=== PATIENT | female | born 1950 | race Caucasian/White ===

== ENCOUNTER 2017-04-28 22:41 | Emergency (ER) | payer MEDICARE ==
[2017-04-28 23:11] LABS: #Basophils 0.1 thou/uL (0.0-0.2); #Lymphocytes 1.9 thou/uL (1.20-3.40); #Monocytes 0.7 thou/uL (0.11-0.59); #Neutrophils 4.7 thou/uL (1.40-6.50); %Basophils 0.8 % (0.0-1.0); %Eosinophils 0.4 % (0.0-10.0); %Lymphocytes 25.4 % (21.0-51.0); %Monocytes 8.9 % (0.0-10.0); Hematocrit 41.9 % (36.0-47.0); White Blood Cell (WBC) Count 7.3 thou/uL (4.8-10.8)
[2017-04-28 23:33] LABS: ALT (SGPT) Less than 7 U/L (8-55); AST (SGOT) 12 U/L (5-34); Alkaline Phosphatase 81 U/L (40-150); Anion Gap 15 mmol/L (10-20); BUN (Urea Nitrogen) 7 mg/dL (9.8-20.1); Bilirubin, Total 0.5 mg/dL (0.2-1.2); Calc. Creatinine Clearance 0 mL/min (70-130); Calcium 9.4 mg/dL (7.8-10.44); Carbon Dioxide 23 mmol/L (23-31); Chloride 95 mmol/L (98-107); Estimated GFR-MDRD 81; Protein, Total 7.1 g/dL (6.0-8.3)
--- NOTE | 2017-04-28 23:41 | RAD ---
PORTABLE CHEST ONE VIEW: Date: 04-28-17 Time: 10:37 p.m. History: Shortness of breath. FINDINGS: Comparison is made with 01-28-17. The heart size is normal. The aorta is tortuous. The lungs are expanded without focal areas of conso lidation, pneumothorax, or pleural effusions. A stable lung nodule is noted in the right midlung. IMPRESSION: 1. No radiographic evidence of acute cardiopulmonary process. 2. Stable nodule in the right midlung. CT scan on a non-emergent basis would be helpful for better c haracterization. Code LN. POS: [facility]
[2017-04-28] MEDS ORDERED: Acetaminophen 500 MG TAB ONE (23:42)
--- NOTE | 2017-04-28 23:57 | CT ---
CT BRAIN WITHOUT CONTRAST: History: Headache. FINDINGS: Comparison made with exam of 01-28-17. Changes of chronic small vessel ischemic disease. Old left parietooccipital infarction and old lacun ar and basilar infarctions again seen. The ventricular size is stable and the basilar cisterns paten t. No evidence of acute infarct, hemorrhage, midline shift, or abnormal extraaxial fluid collections ar e seen. The bony calvarium is intact. The visualized paranasal sinuses and mastoid air cells are wel l aerated. IMPRESSION: No CT evidence of acute intracranial process. POS: [facility]
[2017-04-29 00:02] LABS: Troponin I Less than 0.010 ng/mL (< 0.028)
[2017-04-29] MEDS ORDERED: Loperamide HCl 2 MG CAP ONE (00:26)
== END 2017-04-29 02:03 | disposition home or self-care (01) ==
LOC: ERS 22:41
DX: I10 Essential (primary) hypertension (principal); R19.7 Diarrhea, unspecified; M54.6 Pain in thoracic spine; E78.5 Hyperlipidemia, unspecified; F31.9 Bipolar disorder, unspecified; F17.210 Nicotine dependence, cigarettes, uncomplicated; Z79.891 Long term (current) use of opiate analgesic; Z79.899 Other long term (current) drug therapy
CPT/HCPCS: 36415; 70450; 71010; 80053; 82553; 83735; 84484; 85025; 85379; 93005

== ENCOUNTER 2017-06-09 19:38 | Observation (INO) | payer MEDICARE ==
--- NOTE | 2017-06-09 20:26 | RAD ---
CHEST ONE VIEW HISTORY: Cough. COMPARISON: Chest one view 04/28/2017. FINDINGS: Nodule in the right lateral mid lung is similar in appearance. Lungs are hyperinflated. Cardiac venkatesh houette and mediastinal contours are within normal limits. IMPRESSION: 1. No acute intrathoracic abnormality. 2. Obstructive pulmonary disease. 3. Similar appearance of a right mid lung nodule. Non-emergent follow-up CT is recommended as was re commended on the prior examination. CODE: LN POS: [facility]
[2017-06-09 20:35] LABS: #Basophils 0.1 thou/uL (0.0-0.2); #Eosinphils 0.1 thou/uL (0.0-0.7); #Lymphocytes 2.5 thou/uL (1.20-3.40); #Monocytes 0.6 thou/uL (0.11-0.59); #Neutrophils 3.9 thou/uL (1.40-6.50); %Basophils 1.2 % (0.0-1.0); %Eosinophils 1.4 % (0.0-10.0); %Lymphocytes 34.6 % (21.0-51.0); %Monocytes 8.6 % (0.0-10.0); Hematocrit 36.5 % (36.0-47.0); Mean Platelet Volume 6.1 fL (7.4-10.4); White Blood Cell (WBC) Count 7.2 thou/uL (4.8-10.8)
[2017-06-09 20:59] LABS: ALT (SGPT) 43 U/L (8-55); AST (SGOT) 38 U/L (5-34); Alkaline Phosphatase 89 U/L (40-150); Anion Gap 14 mmol/L (10-20); BUN (Urea Nitrogen) 17 mg/dL (9.8-20.1); Bilirubin, Total Less than 0.2 mg/dL (0.2-1.2); Calc. Creatinine Clearance 0 mL/min (70-130); Calcium 9.1 mg/dL (7.8-10.44); Carbon Dioxide 23 mmol/L (23-31); Chloride 106 mmol/L (98-107); Estimated GFR-MDRD 71; Globulin 3.1 g/dL (2.4-3.5)
[2017-06-09 21:02] LABS: Troponin I 0.011 ng/mL (< 0.028)
[2017-06-09] MEDS ORDERED: Enoxaparin Sodium 100 MG/ML SYRINGE ONE (21:49)
[2017-06-09] MEDS ORDERED: Acetaminophen 500 MG TAB ONE (22:43)
[2017-06-09] MEDS ORDERED: HYDROcodone/Acetaminophen 5/325 mg Tablet ONE (22:46)
[2017-06-09] MEDS ORDERED: Ondansetron HCl/PF 4 MG/2 ML Vial IVP PRN (23:46)
[2017-06-09] MEDS ORDERED: Ondansetron ODT 4 MG TAB SL PRN (23:46)
[2017-06-09 23:50] LABS: Troponin I 0.025 ng/mL (< 0.028)
--- NOTE | 2017-06-09 23:54 | PDOC.EVN ---
Event Note - Event Note Event Note: [id number] h&p dICTATED 1. Chest pain 2. Acute bronchitis 3. HTN plan: see orders
[2017-06-10] MEDS ORDERED: Acetaminophen 325 MG TAB PO PRN (00:31)
[2017-06-10] MEDS ORDERED: Divalproex Sodium DR 500 MG TAB PO SCH ×2 (00:45→21:00)
[2017-06-10] MEDS ORDERED: traZODone HCl 50 MG TAB PO SCH ×3 (00:45→21:00)
[2017-06-10] MEDS: Sodium Chloride 0.9% 1,000 ML IV SCH ×2 (00:48→15:23)
[2017-06-10 03:13] LABS: Troponin I 0.013 ng/mL (< 0.028)
[2017-06-10] MEDS: Nitroglycerin 2% Ointment 1 INCH/1 GM Packet TOP SCH ×2 (05:20→15:23)
--- NOTE | 2017-06-10 05:52 | HP ---
DATE OF ADMISSION: 06/09/2017 CHIEF COMPLAINT: Chest pain. HISTORY OF PRESENT ILLNESS: Patient is a 66-year-old female with past medical history of hypertension, hyperlipidemia, bipolar disorder, now came to the ER complaining of cough and chest congestion, symptoms started approximately 1 week back, cough, positive sputum production, as well as chest congestion, complains of some sore throat and rhinorrhea also. Symptoms persisted, for the past 2 days she was having chest pain. Chest pain is substernal, pressure kind of pain, moderate in intensity, associated with some dyspnea. Denies any sweating, denies any nausea, denies any vomiting, denies any palpitations, chest pain is intermittent. No aggravating factors, no relieving factors, so she came to the ER. PAST MEDICAL HISTORY: As per HPI. PAST SURGICAL HISTORY: Hip replacement. SOCIAL HISTORY: Denies smoking, denies alcohol, denies any drugs. FAMILY HISTORY: Denies any heart problems. MEDICATIONS: Reviewed. ALLERGIES: TRAMADOL. REVIEW OF SYSTEMS: Constitutional: Denies any fever, denies any chills. Eyes : Denies any vision problems. Ears: Denies any hearing loss. Neck: Denies any neck pain. Cardiovascular: Positive for chest pain. Respiratory System: Positive for cough and sputum production. Gastrointestinal: Denies nausea, vomiting. Integumentary: Denies any rash. Musculoskeletal: Denies any joint deformities. All other review of systems are reviewed and are negative. PHYSICAL EXAMINATION: CONSTITUTIONAL/VITAL SIGNS: At the time of H&P performed, blood pressure is 130 /70, afebrile, rr 16 GENERAL: The patient appears comfortable. HEENT: Pupils are equal, round, and reactive. Anterior nares patent. Nose normal. Ears normal. Teeth intact. Tongue is moist. NECK: Supple. No JVD. CARDIOVASCULAR SYSTEM: S1, S2 present. Regular rate and rhythm. No murmurs, no rubs, no gallops. RESPIRATORY SYSTEM: No wheezing, no rhonchi. Breath sounds bilaterally. GASTROINTESTINAL: Soft, nontender, no guarding, no organomegaly, no masses felt. MUSCULOSKELETAL: No edema. INTEGUMENT: No rashes seen. PSYCHIATRIC: Mood appropriate at this time. LABORATORY DATA: At the time of H&P performed, sodium 139, potassium 3.8, chloride 106, CO2 is 23, BUN of 17, creatinine 0.81, calcium 9.1. White count 7.2, hemoglobin 11.9, platelet count 344. EKG: No acute ST changes. EKG positive for T-wave inversion in lead II, III and V4, V5 also. ASSESSMENT AND PLAN: Patient is a 66-year-old female: 1. Chest pain, need to rule out cardiac etiology. Plan to check cardiac enzymes. Plan to consult Cardiology to evaluate patient. 2. Hypertension. Monitor blood pressures continue home blood pressure medications. 3. History of hyperlipidemia: continue home meds 4. Bronchitis. Place patient on IV azithromycin. Plan to monitor the patient closely. Case was discussed in detail with the patient. [facility]
[2017-06-10] MEDS ORDERED: HYDROcodone/Acetaminophen 10/325 mg Tablet PO PRN (07:24)
[2017-06-10] MEDS ORDERED: hydrALAZINE 20 MG/ML VIAL SLOW IVP PRN (07:31)
--- NOTE | 2017-06-10 07:38 | PDOC.PN ---
- Subjective Encounter Start Date: 06/10/17 Encounter Start Time: 14:00 Subjective: No more chest pain. Just persistent cough. Stress test negative. - Objective MAR Reviewed: Yes Vital Signs & Weight: Vital Signs (12 hours) Temp Pulse Resp BP Pulse Ox 06/10/17 07:30 79 197/90 H 06/10/17 05:05 73 18 139/65 96 06/09/17 23:35 98.8 F 66 18 195/90 H 95 Weight Weight 108 lb 14.4 oz I&O: 06/09/17 06/10/17 06/11/17 06:59 06:59 06:59 Intake Total 100 Balance 100 Result Diagrams: 06/09/17 20:26 06/09/17 20:26 Phys Exam - Physical Examination Constitutional: NAD HEENT: moist MMs Respiratory: no wheezing, no rales, no rhonchi Cardiovascular: RRR, no significant murmur Gastrointestinal: soft, positive bowel sounds Musculoskeletal: no edema Neurological: non-focal, moves all 4 limbs Psychiatric: normal affect, A&O x 3 Dx/Plan (1) Chest pain, rule out acute myocardial infarction Code(s): R07.9 - CHEST PAIN, UNSPECIFIED Status: Resolved Comment: secondary to bronchitis, noncardiac (2) Acute bronchitis Code(s): J20.9 - ACUTE BRONCHITIS, UNSPECIFIED Status: Acute Qualifiers: Bronchitis organism: unspecified organism Qualified Code(s): J20.9 - Acute bronchitis, unspecified Comment: Neg leukocytosis or infiltrate on CXR, can back off abx,switch to oral doxycycline (3) HTN (hypertension) Code(s): I10 - ESSENTIAL (PRIMARY) HYPERTENSION Status: Chronic Qualifiers: Hypertension type: essential hypertension Qualified Code(s): I10 - Essential (primary) hypertension Comment: Uncontrolled, resume home meds and give prn hydralazine (4) HLD (hyperlipidemia) Code(s): E78.5 - HYPERLIPIDEMIA, UNSPECIFIED Status: Chronic Qualifiers: Hyperlipidemia type: pure hypercholesterolemia Qualified Code(s): E78.00 - Pure hypercholesterolemia, unspecified; E78.0 - Pure hypercholesterolemia (5) Bipolar 1 disorder Code(s): F31.9 - BIPOLAR DISORDER, UNSPECIFIED Status: Chronic - Plan cont current plan of care, continue antibiotics CM neg x3, stress test negative, will d/c home * . - Discharge Day Encounter end time: 14:30
[2017-06-10] MEDS ORDERED: Carvedilol 3.125 MG TAB PO SCH (09:00)
[2017-06-10] MEDS ORDERED: Aspirin 325 MG TAB PO SCH (09:00)
[2017-06-10] MEDS ORDERED: Doxycycline 100 MG CAP PO SCH (09:00)
[2017-06-10] MEDS ORDERED: Aspirin 325 mg Enteric Coated Tablet PO SCH (09:00)
[2017-06-10] MEDS ORDERED: Amlodipine 10 MG TAB PO SCH (09:00)
[2017-06-10] MEDS ORDERED: Diphenoxylate HCl/Atropine Tablet PO SCH (09:00)
[2017-06-10 13:47] VITALS: BMI 18.6
[2017-06-10 15:30] VITALS: BP 140/65; TEMP 97.9
[2017-06-10] MEDS ORDERED: ADENOSINE 60 MG/20 ML VIAL ONE (15:52)
--- NOTE | 2017-06-10 16:20 | NM ---
MYOCARDIAL PERFUSION SCAN: Date: 06/10/17 HISTORY: Chest pain. TECHNIQUE: The patient was given 9.4 mCi of technetium sestamibi for rest imaging and 33 mCi for stress imaging. Patient was injected with Adenosine and Adenosine protocol was followed. Left ventricle imaged with SPECT imaging. CT attenuation obtained. FINDINGS: There is normal activity throughout the left ventricle on stress and rest images. There is no evidenc e of reversible ischemia. Wall motion is normal. Ejection fraction recorded at over 80%. IMPRESSION: Negative sestamibi stress test. POS: [facility]
[2017-06-10] MEDS ORDERED: Non-Formulary Item 1 EACH (Trazodone [Trazodone] 100 MG) PO SCH (21:00)
[2017-06-10] MEDS ORDERED: Atorvastatin Calcium 20 MG TAB PO SCH (21:00)
--- NOTE | 2017-06-11 06:33 | DIS ---
PRIMARY CARE PHYSICIAN: Imelda Yancey at the [facility]. DIAGNOSES ON ADMISSION: 1. Chest pain, rule out acute coronary syndrome. 2. Hypertension. 3. Bronchitis. 4. Hyperlipidemia. DIAGNOSES ON DISCHARGE: 1. Chest pain, noncardiac, resolved. 2. Acute bronchitis. 3. Hypertension. 4. Hyperlipidemia. 5. Tobacco abuse. CONSULTATIONS: None. PROCEDURE: Nuclear medicine stress test showing no evidence for ischemic cardiac disease and a faith l ejection fraction. PERTINENT LABORATORY: Cardiac markers set negative x3. Total cholesterol little elevated at 204, LD L was 113. SUMMARY OF HOSPITAL COURSE: This is a 66-year-old female with a past medical history of hypertension and hyperlipidemia who has had cough and congestion symptoms for about 1 week when she developed abo ut 2 days of chest pain, substernal, moderate in intensity with some dyspnea. It resolved in the ewdin rgency room. The patient had negative cardiac markers x3. She had negative stress test and was doin g well without chest pain on the day of discharge. DISCHARGE MANAGEMENT: Discharged home. Follow up with primary care physician in the next 1-2 weeks. ACTIVITY: As tolerated. DIET: Healthy heart, low sodium diet. The patient was recommended to stop smoking. DISCHARGE MEDICATIONS: Doxycycline 100 mg twice a day for 7 days plus she is to resume her home medi cations.
== END 2017-06-10 15:54 | disposition home or self-care (01) ==
LOC: ERS 19:38 → 2SW 22:02
PROVIDERS: ADMIT Internal Medicine; ATTEND Internal Medicine
DX: R07.2 Precordial pain (principal); J20.9 Acute bronchitis, unspecified; I10 Essential (primary) hypertension; E78.5 Hyperlipidemia, unspecified; F17.200 Nicotine dependence, unspecified, uncomplicated; F31.9 Bipolar disorder, unspecified; Z79.82 Long term (current) use of aspirin; Z79.899 Other long term (current) drug therapy; Z88.6 Allergy status to analgesic agent; Z88.5 Allergy status to narcotic agent; Z96.649 Presence of unspecified artificial hip joint
CPT/HCPCS: 71010; 78452; 80053; 80061; 82553; 84484 ×3; 85025; 87804 ×2; 93005; 93017; 96361; 96365; 96372; 99285; A9500; G0378; 36415; J0153; J1650; J1956

== ENCOUNTER 2017-06-29 16:05 | Observation (INO) | payer MEDICARE ==
[2017-06-29] MEDS ORDERED: Nitroglycerin 2% Ointment 1 INCH/1 GM Packet ONE (16:24)
[2017-06-29 17:02] LABS: #Basophils 0.1 thou/uL (0.0-0.2); #Eosinphils 0.1 thou/uL (0.0-0.7); #Lymphocytes 2.2 thou/uL (1.20-3.40); #Monocytes 0.6 thou/uL (0.11-0.59); #Neutrophils 5.2 thou/uL (1.40-6.50); %Basophils 0.7 % (0.0-1.0); %Eosinophils 1.1 % (0.0-10.0); %Lymphocytes 27.2 % (21.0-51.0); %Monocytes 7.2 % (0.0-10.0); Hematocrit 42.3 % (36.0-47.0); Mean Platelet Volume 6.9 fL (7.4-10.4); Red Blood Cell (RBC) Count 4.61 mill/uL (4.20-5.40); White Blood Cell (WBC) Count 8.2 thou/uL (4.8-10.8)
--- NOTE | 2017-06-29 17:04 | RAD ---
RADIOGRAPH CHEST 1 VIEW: Date: 06-29-17 Time: 4:45 p.m. HISTORY: 66-year-old female with acute chest pain. COMPARISON: 06-09-17 FINDINGS: The previously mentioned noncalcified nodule in the right mid-lung zone has grown, and currently erica ures approximately 15 mm, although it is difficult to precisely measure because of its spiculated mar gins. No airspace opacity, pulmonary edema, or pneumothorax. New finding of mild blunting of the left lateral costophrenic angle suggestive of a small new pleural effusion. Cardiomediastinal silhouette is normal. No pneumothorax. IMPRESSION: 1. Interval growth of right sided spiculated pulmonary nodule, highly suspicious for primary lung can cer. CT of the chest is again strongly recommended. 2. New small left pleural effusion. Code T JN POS: [facility]
[2017-06-29 17:13] LABS: ALT (SGPT) 8 U/L (8-55); AST (SGOT) 12 U/L (5-34); Alkaline Phosphatase 88 U/L (40-150); Anion Gap 12 mmol/L (10-20); BUN (Urea Nitrogen) 9 mg/dL (9.8-20.1); Bilirubin, Total 0.3 mg/dL (0.2-1.2); CK (CPK) 50 U/L (29-168); Calc. Creatinine Clearance 0 mL/min (70-130); Carbon Dioxide 27 mmol/L (23-31); Chloride 102 mmol/L (98-107); Estimated GFR-MDRD 80; Globulin 3.2 g/dL (2.4-3.5); Protein, Total 7.3 g/dL (6.0-8.3)
[2017-06-29 17:17] LABS: Troponin I Less than 0.010 ng/mL (< 0.028)
[2017-06-29] MEDS ORDERED: Acetaminophen 325 MG TAB PO PRN (18:05)
[2017-06-29] MEDS ORDERED: Nitroglycerin 0.4 MG TAB (25 Tab Bottle) PO PRN (18:05)
[2017-06-29] MEDS ORDERED: Guaifenesin DM 100-10/5 ML UDCUP PO PRN (18:05)
[2017-06-29] MEDS: Sodium Chloride 0.9% 1,000 ML IV SCH (20:09)
[2017-06-29] MEDS: Diphenoxylate HCl/Atropine Tablet PO SCH (20:10)
[2017-06-29] MEDS: Carvedilol 3.125 MG TAB PO SCH (20:10)
[2017-06-29] MEDS: Famotidine 20 MG TAB PO SCH (20:10)
[2017-06-29] MEDS: HYDROcodone/Acetaminophen 10/325 mg Tablet PO PRN (20:12)
[2017-06-29] MEDS ORDERED: traZODone HCl 50 MG TAB PO SCH (21:00)
[2017-06-29] MEDS ORDERED: Atorvastatin Calcium 20 MG TAB PO SCH (21:00)
--- NOTE | 2017-06-29 21:31 | CT ---
Code Lung POS: [facility]
[2017-06-29 22:22] LABS: Troponin I Less than 0.010 ng/mL (< 0.028)
--- NOTE | 2017-06-29 23:02 | HP ---
REASON FOR ADMISSION: Chest pain, dizziness. HISTORY OF PRESENTING ILLNESS: The patient gives history of feeling dizzy and not feeling good the day today. She developed left-sided chest pain, which was 2-3/10 in intensity with some radiati on to the back. She also developed headache off and on. All of this concerned and she came to the e mergency room. She was suffering from bronchitis with congestion from last 3 weeks and got over it t hree days back. She was on Augmentin and steroids via primary care physician. No current complaints of cough or expectoration. No fever. 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 twice daily, [place] p.r.n. for pain, Depakote 1000 mg p.o. daily, trazodone 100 mg p.o. at bedti wi, Celexa 20 mg p.o. daily, aspirin 81 mg p.o. daily. ALLERGIES: TRAMADOL and she is LACTOSE-INTOLERANT. PERSONAL HISTORY: Smokes half pack a day and has been doing so for the last 20-30 years. She has tr ied to quit 3 times. Does not abuse alcohol or drugs. FAMILY HISTORY: Mother of old age and had dementia in her 80s. Father of emphysema and it s complications at the age of 62 years. REVIEW OF SYSTEMS: The following complete review of systems was negative, unless otherwise mentioned in the HPI or below: Constitutional: Weight loss or gain, ability to conduct usual activities. Skin: Rash, itching. Eyes: Double vision, pain. ENT/Mouth: Nose bleeding, neck stiffness, pain, tenderness. Cardiovascular: Palpitations, dyspnea on exertion, orthopnea. Respiratory: Shortness of breath, wheezing, cough, hemoptysis, fever or night sweats. Gastrointestinal: Poor appetite, abdominal pain, heartburn, nausea, vomiting, constipation, or diarr hea. Genitourinary: Urgency, frequency, dysuria, nocturia. Musculoskeletal: Pain, swelling. Neurologic/Psychiatric: Anxiety, depression. Allergy/Immunologic: Skin rash, bleeding tendency. PHYSICAL EXAMINATION: GENERAL: The patient is a 66-year-old female, who is currently not in any acute distress. VITAL SIGNS: Blood pressure 136/74, pulse 70 per minute, respiratory rate 18 per minute, temperature 98 degrees Fahrenheit, saturating 98% on room air. NECK: Supple, no elevated JVD. HEENT: Eyes: Extraocular muscles intact. Pupils are reacting to light. Oral cavity: Mucous membr anes are moist. No exudates or congestion. CARDIOVASCULAR SYSTEM: S1, S2 heard. Regular rhythm. RESPIRATORY SYSTEM: Air entry 1+ bilateral. Scattered rhonchi plus no rales. ABDOMEN: Soft, bowel sounds heard. No tenderness, rigidity or guarding. EXTREMITIES: No peripheral edema or calf tenderness. VASCULAR SYSTEM: Peripheral pulses 1+ bilateral. No ischemic ulcerations or gangrene. CENTRAL NERVOUS SYSTEM: No gross focal deficits seen. The patient is alert, awake, oriented x3. PSYCHIATRIC SYSTEM: The patient's mood is euthymic. No hallucinations or delusions. LABORATORY AND X-RAY FINDINGS: Chest x-ray done shows right-sided spiculated pulmonary nodule highly suspicious for primary lung cancer, new small left pleural effusion. H&H are 13 and 42, platelet co unt 358 with 63% neutrophils, white count of 8. Electrolytes are stable. BUN 9, creatinine 0.7, glu cose 97. Liver enzymes are within normal limits. Cardiac enzymes are negative. Albumin is 4.1. A CT chest done by my review shows a 13 mm spiculated mass in the right lung. Official results are pen ding. EKG done shows normal sinus rhythm at 71 beats per minute with poor R-wave progression. CLINICAL IMPRESSION AND PLAN: The patient will be under observation on telemetry for chest pain, rul e out acute coronary syndrome. Likely this is noncardiac chest pain. We will obtain two more sets o f cardiac enzymes. We will continue her Norvasc, Coreg, Depakote and trazodone as before. The patie nt will be on DuoNebs q.6 hourly and Pepcid 20 mg twice daily. I will try to set her up with Dr. Evelina cormier, who is music rehabilitation therapist for Pulmonology in his office for the right spiculated lung mass for outpatient bro nchoscopy or CT guided biopsy. Otherwise, she will be closely monitored on telemetry. The patient a lso appears clinically dry and will be on normal saline at 70 mL per hour.
[2017-06-30] MEDS: HYDROcodone/Acetaminophen 10/325 mg Tablet PO PRN ×3 (00:20→09:45)
[2017-06-30 00:31] VITALS: BMI 19.2
[2017-06-30] MEDS: Sodium Chloride 0.9% 1,000 ML IV SCH (04:03)
[2017-06-30 05:04] LABS: #Basophils 0.1 thou/uL (0.0-0.2); #Eosinphils 0.1 thou/uL (0.0-0.7); #Lymphocytes 2.5 thou/uL (1.20-3.40); #Monocytes 0.4 thou/uL (0.11-0.59); #Neutrophils 3.5 thou/uL (1.40-6.50); %Basophils 0.9 % (0.0-1.0); %Eosinophils 1.2 % (0.0-10.0); %Lymphocytes 37.7 % (21.0-51.0); %Monocytes 6.7 % (0.0-10.0); Hematocrit 36.7 % (36.0-47.0); Mean Platelet Volume 6.8 fL (7.4-10.4); White Blood Cell (WBC) Count 6.5 thou/uL (4.8-10.8)
[2017-06-30 05:31] LABS: Anion Gap 12 mmol/L (10-20); BUN (Urea Nitrogen) 10 mg/dL (9.8-20.1); Calc. Creatinine Clearance 64 mL/min (70-130); Carbon Dioxide 24 mmol/L (23-31); Chloride 104 mmol/L (98-107); Estimated GFR-MDRD 85
[2017-06-30] MEDS: Famotidine 20 MG TAB PO SCH (08:14)
[2017-06-30 08:15] VITALS: BP 175/75; TEMP 97.7
[2017-06-30] MEDS: Carvedilol 3.125 MG TAB PO SCH (08:15)
[2017-06-30] MEDS: Diphenoxylate HCl/Atropine Tablet PO SCH (08:15)
[2017-06-30] MEDS ORDERED: Enoxaparin Sodium 30 MG/0.3 ML SYRINGE SC SCH (09:00)
[2017-06-30] MEDS ORDERED: Amlodipine 10 MG TAB PO SCH (09:00)
--- NOTE | 2017-06-30 11:50 | PDOC.PN ---
- Subjective Encounter Start Date: 06/30/17 Encounter Start Time: 08:15 Subjective: no further dizziness or chest pain -: feels better, no cough -: is amb in room - Objective Resuscitation Status: Resuscitation Status FULL:Full Resuscitation MAR Reviewed: Yes Vital Signs & Weight: Vital Signs (12 hours) Temp Pulse Resp BP BP Pulse Ox 06/30/17 08:36 97 06/30/17 08:34 59 L 16 97 06/30/17 08:15 57 L 175/75 H 06/30/17 07:22 97.7 F 57 L 16 175/75 H 97 06/30/17 07:05 97.9 F 60 16 06/30/17 03:58 97.9 F 60 16 173/78 H 100 06/30/17 01:12 81 12 93 L Weight Weight 111 lb 14.4 oz I&O: 06/29/17 06/30/17 07/01/17 06:59 06:59 06:59 Intake Total 1254 967 Balance 1254 967 Result Diagrams: 06/30/17 04:08 06/30/17 04:08 Phys Exam - Physical Examination HEENT: PERRLA, moist MMs Neck: no JVD, supple Respiratory: no wheezing, no rales Cardiovascular: RRR, no significant murmur Gastrointestinal: soft, non-tender, positive bowel sounds Musculoskeletal: no edema, pulses present Neurological: non-focal, moves all 4 limbs Psychiatric: A&O x 3 Dx/Plan (1) Chest pain Code(s): R07.9 - CHEST PAIN, UNSPECIFIED Status: Resolved (2) Pulmonary nodule, right Code(s): R91.1 - SOLITARY PULMONARY NODULE Status: Acute (3) Carotid artery disease Code(s): I77.9 - DISORDER OF ARTERIES AND ARTERIOLES, UNSPECIFIED Status: Chronic Qualifiers: Laterality: bilateral Qualified Code(s): I77.9 - Disorder of arteries and arterioles, unspecified (4) COPD (chronic obstructive pulmonary disease) Status: Chronic Qualifiers: COPD type: chronic bronchitis Chronic bronchitis type: unspecified Qualified Code(s): J42 - Unspecified chronic bronchitis (5) HLD (hyperlipidemia) Code(s): E78.5 - HYPERLIPIDEMIA, UNSPECIFIED Status: Chronic Qualifiers: Hyperlipidemia type: pure hypercholesterolemia Qualified Code(s): E78.00 - Pure hypercholesterolemia, unspecified; E78.0 - Pure hypercholesterolemia (6) HTN (hypertension) Code(s): I10 - ESSENTIAL (PRIMARY) HYPERTENSION Status: Chronic Qualifiers: Hypertension type: essential hypertension Qualified Code(s): I10 - Essential (primary) hypertension (7) Vertebral artery occlusion Code(s): I65.09 - OCCLUSION AND STENOSIS OF UNSPECIFIED VERTEBRAL ARTERY Status: Chronic - Plan hemostable -: tropx3 -ve -: to f/u with for either bronch with bx or ct guided bx of lung nodul -: dc pt home * .
--- NOTE | 2017-06-30 14:27 | DIS ---
DATE OF ADMISSION: 06/29/2017 DATE OF DISCHARGE: 06/30/2017 DISCHARGE DISPOSITION: To home. PRIMARY DISCHARGE DIAGNOSES: 1. Chest pain which is noncardiac. 2. Right lung pulmonary nodule for outpatient workup. SECONDARY DISCHARGE DIAGNOSES: History of chronic carotid artery stenosis, COPD, dyslipidemia, hyper tension. PROCEDURES DONE DURING HOSPITALIZATION: CT chest without contrast showed 1.8 cm spiculated right low er lobe pulmonary nodule suspicious for lung cancer with signs of emphysema, H&H 11 and 36, platelet count 294. Troponin x3 negative. DISCHARGE MEDICATIONS: Patient to continue Norvasc 10 mg p.o. daily, aspirin 325 mg p.o. daily, Lipi tor 20 mg p.o. at bedtime, Coreg 3.125 mg p.o. twice daily, Depakote extended release 1000 mg p.o. at bedtime for bipolar disorder, [place] p.r.n. for pain, trazodone 100 mg p.o. at bedtime. ALLERGIES: TRAMADOL. DISCHARGE PLAN: The patient will follow up with Dr. Hernandez in his office. Will call her for appointme nt for the lung nodule. She also needs follow up with primary care physician in 1 week. BRIEF COURSE DURING HOSPITALIZATION: The patient initially came to ER with complaints of chest pain and dizziness. She was mildly dehydrated and was gently hydrated. Troponin x3 was negative. She williamson s had a recent stress test here done which was negative as well. The patient had a pulmonary nodule on plain x-ray and CT chest without contrast was obtained which showed spiculated 1.8 cm pulmonary no dule. I have discussed the findings with Dr. Hernandez. His office will call her for further workup for the same. She was gently hydrated and has done well. Her dizziness and chest pain have resolved. Vangie khan see a face to face documentation on [employer] for the day of discharge.
== END 2017-06-30 11:39 | disposition home or self-care (01) ==
LOC: ERS 16:05 → 2SW 17:19
PROVIDERS: ADMIT Internal Medicine; ATTEND Internal Medicine
DX: R07.89 Other chest pain (principal); R91.1 Solitary pulmonary nodule; I65.21 Occlusion and stenosis of right carotid artery; I65.02 Occlusion and stenosis of left vertebral artery; I10 Essential (primary) hypertension; J44.9 Chronic obstructive pulmonary disease, unspecified; E78.5 Hyperlipidemia, unspecified; F31.9 Bipolar disorder, unspecified; E73.9 Lactose intolerance, unspecified; K52.9 Noninfective gastroenteritis and colitis, unspecified; F17.210 Nicotine dependence, cigarettes, uncomplicated; F32.9 Major depressive disorder, single episode, unspecified; Z86.73 Personal history of transient ischemic attack (TIA), and cerebral infarction without residual deficits; Z79.899 Other long term (current) drug therapy; Z88.5 Allergy status to narcotic agent; Z90.710 Acquired absence of both cervix and uterus; Z98.890 Other specified postprocedural states
CPT/HCPCS: 71010; 71250; 80048; 80053; 82550; 82553; 84484 ×2; 85025 ×2; 93005; 93306; 94640 ×2; 94760; 96361 ×2; 96372; 99285; G0378; 36415; A4216; J1650; J7620

== ENCOUNTER 2017-07-08 17:27 | Emergency (ER) | payer MEDICARE ==
[2017-07-08 18:26] LABS: Bilirubin Negative (Negative); Blood, Urine Negative (Negative); Glucose, Urine (Dipstick) 100 mg/dL (Negative); Ketone, Urine Trace mg/dL (Negative); Nitrite Negative (Negative); Protein, Urine (Dipstick) Trace mg/dL (Neg-Trace)
== END 2017-07-08 19:46 | disposition home or self-care (01) ==
LOC: ERS 17:27
DX: J10.1 Influenza due to other identified influenza virus with other respiratory manifestations (principal); E78.5 Hyperlipidemia, unspecified; I10 Essential (primary) hypertension; F31.9 Bipolar disorder, unspecified; F17.210 Nicotine dependence, cigarettes, uncomplicated; Z71.6 Tobacco abuse counseling; Z79.82 Long term (current) use of aspirin; Z79.899 Other long term (current) drug therapy
CPT/HCPCS: 81003; 99406

== ENCOUNTER 2017-07-16 05:51 | Inpatient (IN) | payer MEDICARE ==
[2017-07-16] MEDS ORDERED: Dexamethasone 10 MG/ML VIAL ONE (06:24)
[2017-07-16] MEDS ORDERED: Magnesium Sulfate 2 GM/NS 0.9% 50 ML BAG ONE (06:24)
[2017-07-16] MEDS ORDERED: Albuterol Sulfate 2.5 mg/0.5 ml Neb ONE (06:26)
[2017-07-16 06:41] LABS: Base Excess (BEa) 0.1 mEq/L (0 (+/-) 2.5); CO2 Tension 36.1 mmHg (35.0-45.0); Calcium, Ionized 1.1 mmol/L (1.12-1.30); Hemoglobin (Hb) 11.1 g/dL (12.0-16.0); O2 Tension (PaO2) 54.1 mmHg (80.0-100.0); pH, Arterial 7.44 (7.35-7.45)
[2017-07-16 06:42] LABS: ALV-art Gradient 52.395 (0-20); Analyzer IN Cardio ER; Puncture Site L.R.
[2017-07-16 06:52] LABS: Hemoglobin 11.6 g/dL (12.0-16.0); Mean Corpuscular HGB CONC 31.7 g/dL (32.0-36.0); Mean Corpuscular Volume 91.4 fl (81.0-99.0); Mean Platelet Volume 6.9 fL (7.4-10.4); Platelet Count 251 thou/uL (130-400); RBC Distribution Width 13.3 % (11.5-14.5); Red Blood Cell (RBC) Count 4.01 mill/uL (4.20-5.40); White Blood Cell (WBC) Count 15.9 thou/uL (4.8-10.8)
[2017-07-16 07:01] LABS: ALT (SGPT) 9 U/L (8-55); AST (SGOT) 10 U/L (5-34); Albumin 3.4 g/dL (3.4-4.8); Alkaline Phosphatase 67 U/L (40-150); Anion Gap 15 mmol/L (10-20); BUN (Urea Nitrogen) 12 mg/dL (9.8-20.1); Bilirubin, Total 0.7 mg/dL (0.2-1.2); Calc. Creatinine Clearance 0 mL/min (70-130); Calcium 8.7 mg/dL (7.8-10.44); Carbon Dioxide 23 mmol/L (23-31); Chloride 100 mmol/L (98-107); Estimated GFR-MDRD 65; Globulin 2.9 g/dL (2.4-3.5); Glucose 155 mg/dL (80-115); Protein, Total 6.3 g/dL (6.0-8.3); Sodium 134 mmol/L (136-145)
[2017-07-16 07:14] LABS: Band 26 % (5-11); Hypochromia SLIGHT = 6-15 cells (100X) (0-5/hpf); Lymphocytes 6 % (21-51); MDiff Complete? YES; Monocytes 4 % (0-10); Neutrophil 63 % (42-75); PLT Morphology Comment Appears Adequate; Polychromasia SLIGHT = 2-3 cells (100X) (0-2/hpf); Reactive Lymphocytes 1 % (0-10)
[2017-07-16] MEDS ORDERED: Oseltamivir 75 MG CAP PO ONE (07:45)
--- NOTE | 2017-07-16 08:16 | RAD ---
PORTABLE CHEST ONE VIEW: Date: 07-16-17 Time: 6:54 a.m. History: Cough, fever. FINDINGS: Comparison is made with exam of 06-29-17. The heart size is normal. The lungs are well expanded with stable spiculated nodule in the right lowe r lobe. Patchy airspace disease is seen in the left lung base, interstitial markings are also noted i n the infrahilar regions bilaterally. No pneumothoraces are seen. A small left effusion cannot be exc luded. IMPRESSION: 1. Findings are suspicious for pneumonia. 2. Right lung nodule is suspicious for malignancy until proven otherwise. POS: [facility]
[2017-07-16 11:55] LABS: Lactic Acid 3.6 mmol/L (0.5-2.2)
[2017-07-16] MEDS ORDERED: Milk Of Magnesia 30 ML UDCUP PO PRN (12:26)
[2017-07-16] MEDS ORDERED: Artificial Tears 18 DROP/0.9 ML EA EYE PRN (12:26)
[2017-07-16] MEDS ORDERED: Acetaminophen 325 MG TAB PO PRN (12:26)
[2017-07-16] MEDS ORDERED: Sodium Chloride 0.65% Nasal 44 ML BOT EA NARE PRN (12:26)
[2017-07-16] MEDS ORDERED: Eucerin (Mineral Oil/Petrolatum,White) 30 gm Jar TOP PRN (12:26)
[2017-07-16] MEDS ORDERED: Ondansetron ODT 4 MG TAB PO PRN (12:26)
[2017-07-16] MEDS ORDERED: hydrALAZINE 20 MG/ML VIAL SLOW IVP PRN (12:26)
[2017-07-16] MEDS ORDERED: Ondansetron HCl/PF 4 MG/2 ML Vial IVP PRN (12:26)
[2017-07-16] MEDS ORDERED: Loratadine 10 MG TAB PO PRN (12:26)
[2017-07-16] MEDS ORDERED: Mag-Al 1200 mg/1200 mg/30 ML UDCUP PO PRN (12:26)
[2017-07-16] MEDS ORDERED: Senokot 8.6 MG TAB PO PRN (12:26)
[2017-07-16] MEDS ORDERED: Chloraseptic Spray 180 ml Bottle PO PRN (12:26)
[2017-07-16] MEDS ORDERED: cefTRIAXone\\ROCEPHIN 1 GM in Sodium Chloride 0.9% 100 ML IVPB SCH (12:30)
[2017-07-16] MEDS ORDERED: Loperamide HCl 2 MG CAP ONE (13:00)
[2017-07-16] MEDS ORDERED: Acetaminophen 325 MG TAB ONE (13:01)
[2017-07-16] MEDS ORDERED: Levofloxacin 500 mg/D5W 100 ml Premix Bag ONE (13:01)
[2017-07-16] MEDS ORDERED: Oseltamivir 75 MG CAP PO SCH ×2 (13:30→21:00)
[2017-07-16] MEDS ORDERED: HYDROcodone/Acetaminophen 5/325 mg Tablet ONE (13:32)
--- NOTE | 2017-07-16 13:51 | HP ---
PRIMARY CARE PHYSICIAN: Dr. Ollie Sandra at [facility]. REASON FOR ADMISSION: Post-influenza pneumonia, hypoxic respiratory failure, sepsis with acute organ dysfunction. HISTORY OF PRESENT ILLNESS: A 66-year-old female who reports that she had upper respiratory symptoms at end of May. At that time, she visited primary care physician who prescribed inhalers, stero ids. After that patient felt better for few days only and subsequently she had continuous upper resp iratory symptoms. Her influenza screen on 06/09/2017 was negative. The patient was not improving and she was having increasing shortness of breath, cough, and runny nos e and that is why her primary care physician ordered another influenza screen which was positive. Abhishek powell has finished 5 days of Tamiflu therapy. Even after this, patient's condition is not improving and she has fever and dyspnea. She was not abl e to take deep breaths in. She was having cough productive of scant amount of sputum without any hem optysis. She was not able to breathe at home and she was feeling more congested in her chest and carroll t is why she was brought to the emergency room again today. Today in the emergency room, patient had leukocytosis with bandemia. She was hypoxic. She had lactic acidosis. Her influenza screen today is negative. In the emergency room, patient has received so far Tamiflu, IV fluid, magnesium sulfate, Decadron 10 mg, Rocephin 1 gram, DuoNeb therapy, and albuterol inhalation. Even after that, patient's condition has not improved and that is why we decided to keep this patient in the hospital for further evaluati on and treatment. REVIEW OF SYSTEMS: The following complete review of systems was negative, unless otherwise mentioned in the HPI or below: Constitutional: Weight loss or gain, ability to conduct usual activities. Skin: Rash, itching. Eyes: Double vision, pain. ENT/Mouth: Nose bleeding, neck stiffness, pain, tenderness. Cardiovascular: Palpitations, dyspnea on exertion, orthopnea. Respiratory: Shortness of breath, wheezing, cough, hemoptysis, fever or night sweats. Gastrointestinal: Poor appetite, abdominal pain, heartburn, nausea, vomiting, constipation, or diarr hea. Genitourinary: Urgency, frequency, dysuria, nocturia. Musculoskeletal: Pain, swelling. Neurologic/Psychiatric: Anxiety, depression. Allergy/Immunologic: Skin rash, bleeding tendency. Please see my HPI for pertinent positives and negatives. All other review of systems reviewed and ne gative except as mentioned in the HPI. PAST MEDICAL HISTORY: History of cerebrovascular accident in 2015, hypertension, dyslipidemia, and m igraine headache. PAST PSYCHIATRIC HISTORY: Bipolar disorder. Anxiety and depression. The patient required inpatient psychiatric facility in 1986. PAST SURGICAL HISTORY: Hysterectomy, abdominal surgery, total left hip replacement, tonsillectomy, a nd gastric ulcer surgery. SOCIAL HISTORY: Patient is smoking about half pack per day. She drinks alcohol socially and occasio ileana. She denies any other illicit drug abuse. The patient currently lives at [facility]. FAMILY HISTORY: Positive tobacco, positive for hypertension to her mother and hard condition to gran dmother. Father also had COPD and emphysema. CURRENT HOME MEDICATIONS: Amlodipine 10 mg p.o. daily, Lipitor 10 mg p.o. at bedtime, Coreg 3.125 mg p.o. twice daily, [place] 10 one tablet q.6 hourly p.r.n., Depakote 1000 mg p.o. at bedtime, trazodone 100 mg p.o. at bedtime, Celexa 20 mg p.o. daily, aspirin 81 mg p.o. daily. ALLERGIES: LACTOSE INTOLERANCE and TRAMADOL. EMERGENCY ROOM COURSE: Patient has received sodium chloride, IV fluid 2 liter, Tamiflu, magnesium blakely lfate 1 g, Decadron 10 mg, Rocephin 1 g, DuoNeb therapy, albuterol nebulization therapy. PHYSICAL EXAMINATION: VITAL SIGNS: On arrival, blood pressure 117/52, pulse 89, respiratory rate 24, temperature 100.2, sa turation 97% on 2 liter oxygen, weight 50.3 kilograms. When oxygen was off, her saturation was dropp ing to below 88%. GENERAL: The patient is currently alert, awake, appears sick, no obvious acute distress. HEAD: Normocephalic, atraumatic. EYES: Pupils round, reactive to light. Extraocular muscle intact. ENT: Oropharynx within normal limits. Moist mucous membranes. No oral lesions. No pharyngeal eryt kimber, no exudate. NECK: Supple, no JVD, no thyromegaly, no carotid bruit, no jugular venous distention. LUNGS: Patient has scattered rales. Predominantly, patient has coarse rales at the bases. No acces jose alejandro muscles of respiration in use. CARDIAC: S1, S2 regular. No murmur, no gallop, no rub. ABDOMEN: Soft, bowel sounds present, nontender, nondistended. No organomegaly, no mass, no suprapub ic tenderness. BACK: Examination unremarkable, no CVA tenderness. EXTREMITIES: Upper extremity passive movements of all joints are normal. Lower extremities: No chelsea ma. Good peripheral pulsation. SKIN: No skin rash. HEMATOLOGICAL SYSTEM: No lymphadenopathy. NEUROLOGIC: Nonfocal examination. The patient moves all 4 limbs. Plantar bilateral flexor. PSYCHIATRIC: Normal affect. IMAGING DATA AND SIGNIFICANT LABORATORY DATA: 1. bleacher kraft pulp showing normal sinus rhythm. 2. CBC: WBC 15.9, hemoglobin 11.6, platelets 251, bandemia 26%. 3. ABG: pH 7.44, CO2 36.1, O2 54.1 saturation 89.5%. 4. BMP: Sodium 134, potassium 4.0, chloride 100, carbon dioxide 23, anion gap 15, BUN 12, creatinin e 0.87, glucose 155, calcium 8.7. 5. LFT: AST 10, ALT 9, alkaline phosphatase 67, albumin 2.9, lactic acid 2.8 and then 3.6. Influen za A and B negative. 6. Chest x-ray based on my review consistent with pneumonia, right lung nodule. ASSESSMENT AND PLAN/IMPRESSION: 1. Sepsis with acute organ dysfunction. This patient has sepsis criteria with leukocytosis with ban demia, fever and associated hypoxic respiratory failure. Source of infection is pneumonia after infl uenza. The patient also has associated lactic acidosis. We will rule out associated urinary tract i nfection, though the patient denies any clinical symptoms of urinary tract infection. 2. Acute hypoxic respiratory failure. Her oxygen saturation drops to below 88% when oxygen was not given. Most likely related with post-influenza pneumonia as well as her ongoing tobacco smoking hist ory. We will monitor her oxygen saturation while in hospital. We are hoping that with treatment of underlying pneumonia, she will not need any oxygen therapy upon discharge. 3. Pneumonia after influenza, suspicious for Staphylococcal infection and that is why we will consid er giving her Rocephin and Levaquin to cover common organisms as well as vancomycin to cover strep or ganism. DuoNeb therapy will be given every 6 hourly, so we will also give Solu-Medrol 40 mg IV q.8 h ourly and Mucinex 600 mg twice daily and we will also continue with IV fluid. We will also prescribe probiotics with IV antibiotic therapy. 4. Lactic acidosis likely related with sepsis and we will repeat lactic acid level tomorrow. 5. Leukocytosis with bandemia related with sepsis. We will repeat CBC tomorrow. 6. Anemia, normocytic normochromic. We will start folic acid, vitamin B12, and ferrous sulfate ther apy. 7. Right upper lobe pulmonary nodule suspicious for malignancy. We will consider pulmonary evaluati on before discharge. This patient is not going to follow up with the media consultant outside sales as an outpatient basis. She may need a bronchoscopy or biopsy to rule out any malignancy. 8. Hypertension. We will continue amlodipine 10 mg p.o. daily. 9. Dyslipidemia. We will continue Lipitor 20 mg p.o. at bedtime. 10. Bipolar disorder. We will continue Depakote ER 1000 mg p.o. at bedtime. 11. Anxiety and depression. We will continue trazodone 100 mg p.o. at bedtime. 12. Deep venous thrombosis prophylaxis, Lovenox 40 mg subcu daily. 13. Gastrointestinal prophylaxis, Pepcid 20 mg p.o. b.i.d. Code status: The patient is FULL CODE. Patient does not have any surrogate decision maker. Disposition and plan based on clinical course. We are expecting patient's stay in hospital more than 2 midnights. Plan of care discussed with the patient in detail.
[2017-07-16 14:44] VITALS: BMI 19.7
[2017-07-16] MEDS: Sodium Chloride 0.9% 1,000 ML IV SCH ×2 (15:32→21:04)
[2017-07-16] MEDS: Vancomycin HCl 750 MG in Sodium Chloride 0.9% 250 ML 250 ML IVPB SCH (15:33)
[2017-07-16] MEDS: Diabetic Tussin 200 MG/10 ML UDCUP PO PRN ×2 (17:44→23:00)
[2017-07-16] MEDS: HYDROcodone/Acetaminophen 5/325 mg Tablet PO PRN (17:56)
[2017-07-16 17:57] LABS: Bilirubin Negative (Negative); Blood, Urine Negative (Negative); Clarity CLEAR (Clear); Glucose, Urine (Dipstick) 500 mg/dL (Negative); Leukocyte Negative (Negative); Nitrite Negative (Negative); Protein, Urine (Dipstick) Negative (Neg-Trace); Specific Gravity, Urine 1.022 (1.002-1.036); Urobilinogen 0.2 mg/dL (0.2-1.0)
[2017-07-16 17:59] LABS: Bacteria/HPF None Seen HPF (None Seen); Hyaline Casts/LPF 0-3 HYALINE CAST LPF (0-3 Hyaline); RBC/HPF 0-3 HPF (0-3); Squamous Epithelial 0-3 HPF (0-3); WBC/HPF 0-3 HPF (0-3)
[2017-07-16] MEDS: guaiFENesin ER 600 MG TAB PO SCH (20:43)
[2017-07-16] MEDS: Famotidine 20 MG TAB PO SCH (20:44)
[2017-07-16] MEDS: Carvedilol 3.125 MG TAB PO SCH (20:44)
[2017-07-16] MEDS: Atorvastatin Calcium 20 MG TAB PO SCH (20:44)
[2017-07-16] MEDS: traZODone HCl 50 MG TAB PO SCH (20:53)
[2017-07-16] MEDS: Diphenoxylate HCl/Atropine Tablet PO PRN (20:58)
[2017-07-16] MEDS ORDERED: FLU VACC TS2017-18 (>65YR) 0.5 ML SYRINGE IM ONE (21:00)
[2017-07-17] MEDS: HYDROcodone/Acetaminophen 5/325 mg Tablet PO PRN ×5 (00:30→20:18)
[2017-07-17] MEDS: Diabetic Tussin 200 MG/10 ML UDCUP PO PRN ×2 (04:38→20:27)
[2017-07-17] MEDS: Loperamide HCl 2 MG CAP PO PRN (04:38)
[2017-07-17] MEDS: Benzonatate 100 MG CAP PO PRN (04:39)
[2017-07-17] MEDS: Vancomycin HCl 750 MG in Sodium Chloride 0.9% 250 ML 250 ML IVPB SCH (05:31)
[2017-07-17 05:57] LABS: Lactic Acid 2.4 mmol/L (0.5-2.2)
[2017-07-17] MEDS ORDERED: cefTRIAXone\\ROCEPHIN 1 GM, Syringe 0.4 ML in Sterile Water 9.6 ML SLOW IVP SCH (06:00)
[2017-07-17 06:22] LABS: ALT (SGPT) 9 U/L (8-55); AST (SGOT) 7 U/L (5-34); Albumin 3.2 g/dL (3.4-4.8); Alkaline Phosphatase 76 U/L (40-150); Anion Gap 14 mmol/L (10-20); BUN (Urea Nitrogen) 15 mg/dL (9.8-20.1); Bilirubin, Total 0.3 mg/dL (0.2-1.2); Calc. Creatinine Clearance 63 mL/min (70-130); Calcium 8.5 mg/dL (7.8-10.44); Carbon Dioxide 21 mmol/L (23-31); Chloride 103 mmol/L (98-107); Estimated GFR-MDRD 81; Globulin 2.8 g/dL (2.4-3.5); Glucose 132 mg/dL (80-115); Potassium 3.9 mmol/L (3.5-5.1); Sodium 134 mmol/L (136-145)
[2017-07-17 06:58] LABS: Band 20 % (5-11); Hemoglobin 10.6 g/dL (12.0-16.0); Lymphocytes 1 % (21-51); MDiff Complete? YES; Mean Corpuscular HGB CONC 31.6 g/dL (32.0-36.0); Mean Corpuscular Hemoglobin 29.3 pg (27.0-31.0); Mean Corpuscular Volume 92.6 fl (81.0-99.0); Mean Platelet Volume 7.5 fL (7.4-10.4); Monocytes 6 % (0-10); Neutrophil 73 % (42-75); Platelet Count 260 thou/uL (130-400); RBC Distribution Width 13.5 % (11.5-14.5); Red Blood Cell (RBC) Count 3.63 mill/uL (4.20-5.40); White Blood Cell (WBC) Count 18.5 thou/uL (4.8-10.8)
[2017-07-17] MEDS: Amlodipine 10 MG TAB PO SCH (08:27)
[2017-07-17] MEDS: Aspirin 325 mg Enteric Coated Tablet PO SCH (08:27)
[2017-07-17] MEDS: guaiFENesin ER 600 MG TAB PO SCH ×2 (08:27→20:19)
[2017-07-17] MEDS: Famotidine 20 MG TAB PO SCH ×2 (08:27→20:19)
[2017-07-17] MEDS: Saccharomyces boulardii 250 MG CAP PO SCH (08:27)
[2017-07-17] MEDS: Carvedilol 3.125 MG TAB PO SCH ×2 (08:27→20:20)
[2017-07-17] MEDS: Diphenoxylate HCl/Atropine Tablet PO PRN ×2 (08:28→20:19)
[2017-07-17] MEDS: Enoxaparin Sodium 40 MG/0.4 ML SYRINGE SC SCH (08:28)
--- NOTE | 2017-07-17 10:03 | PDOC.PN ---
- Subjective Encounter Start Date: 07/17/17 Encounter Start Time: 07:20 Patient seen and examined. No new complaints. No overnight events - Objective Resuscitation Status: Resuscitation Status FULL:Full Resuscitation MAR Reviewed: Yes Vital Signs & Weight: Vital Signs (12 hours) Temp Pulse Resp BP Pulse Ox 07/17/17 08:27 80 07/17/17 07:40 98.8 F 80 18 118/71 96 07/17/17 07:17 89 L 07/17/17 07:11 80 20 89 L 07/17/17 04:00 97.4 F L 74 20 139/70 96 07/17/17 00:41 67 16 98 Weight Weight 115 lb I&O: 07/16/17 07/17/17 07/18/17 06:59 06:59 06:59 Intake Total 1210 Output Total 400 Balance 810 Result Diagrams: 07/17/17 04:48 07/17/17 04:47 EKG Reviewed by me: Yes (nsr) Phys Exam - Physical Examination Constitutional: NAD HEENT: PERRLA, moist MMs, sclera anicteric Neck: no JVD, supple Respiratory: no wheezing, no rhonchi Cardiovascular: RRR, no significant murmur, no rub Gastrointestinal: soft, non-tender, no distention, positive bowel sounds Musculoskeletal: no edema, pulses present Neurological: non-focal, normal sensation Lymphatic: no nodes Psychiatric: normal affect, A&O x 3 Skin: no rash, normal turgor Dx/Plan (1) Acute respiratory failure with hypoxia Code(s): J96.01 - ACUTE RESPIRATORY FAILURE WITH HYPOXIA Status: Acute (2) Lactic acidosis Code(s): E87.2 - ACIDOSIS Status: Acute (3) Pneumonia Code(s): J18.9 - PNEUMONIA, UNSPECIFIED ORGANISM Status: Acute (4) Sepsis with acute organ dysfunction Code(s): A41.9 - SEPSIS, UNSPECIFIED ORGANISM; R65.20 - SEVERE SEPSIS WITHOUT SEPTIC SHOCK Status: Acute (5) Anemia, normocytic normochromic Code(s): D64.9 - ANEMIA, UNSPECIFIED Status: Chronic (6) Bipolar 1 disorder Code(s): F31.9 - BIPOLAR DISORDER, UNSPECIFIED Status: Chronic (7) COPD (chronic obstructive pulmonary disease) Status: Chronic Qualifiers: (8) HLD (hyperlipidemia) Code(s): E78.5 - HYPERLIPIDEMIA, UNSPECIFIED Status: Chronic Qualifiers: (9) HTN (hypertension) Code(s): I10 - ESSENTIAL (PRIMARY) HYPERTENSION Status: Chronic Qualifiers: (10) Pulmonary nodule, right Code(s): R91.1 - SOLITARY PULMONARY NODULE Status: Chronic - Plan cont current plan of care, continue antibiotics, respiratory therapy * dc tele * transfer to medical floor * continue iv antibiotics * follow culture * medication reviewed as below * symptomatic treatment. * pulmonary consulted * regular diet per pt request Review of Systems - Review of Systems Constitutional: weakness. negative: fever, chills, sweats, malaise, other ENT: negative: Ear Pain, Ear Discharge, Nose Pain, Nose Discharge, Nose Congestion, Mouth Pain, Mouth Swelling, Throat Pain, Throat Swelling, Other Respiratory: Cough, SOB with Excertion, Sputum. negative: Dry, Shortness of Breath, Hemoptysis, Pleuritic Pain, Wheezing Cardiovascular: negative: chest pain, palpitations, orthopnea, paroxysmal nocturnal dyspnea, edema, light headedness, other Gastrointestinal: negative: Nausea, Vomiting, Abdominal Pain, Diarrhea, Constipation, Melena, Hematochezia, Other Genitourinary: negative: Dysuria, Frequency, Incontinence, Hematuria, Retention , Other Musculoskeletal: negative: Neck Pain, Shoulder Pain, Arm Pain, Back Pain, Hand Pain, Leg Pain, Foot Pain, Other Skin: negative: Rash, Lesions, Lee, Bruising, Other - Medications/Allergies Allergies/Adverse Reactions: Allergies Allergy/AdvReac Type Severity Reaction Status Date / Time tramadol Allergy Verified 07/16/17 14:49 Medications: Current Medications Acetaminophen (Tylenol) 650 mg PO Q4H PRN PRN Reason: Headache/Fever or Pain Hydrocodone Bitart/Acetaminophen ([place] 5/325) 1 tab PO Q4H PRN PRN Reason: Pain Last Admin: 07/17/17 08:27 Dose: 1 tab Al Hydroxide/Mg Hydroxide (Maalox) 30 ml PO Q6H PRN PRN Reason: Heartburn or Indigestion Albuterol/Ipratropium (Duoneb) 3 ml NEB [id number] [facility] Last Admin: 07/17/17 07:11 Dose: 3 ml Amlodipine Besylate (Norvasc) 10 mg PO DAILY [facility] Last Admin: 07/17/17 08:27 Dose: 10 mg Artificial Tears (Tears Naturale) 0 drop EA EYE PRN PRN PRN Reason: Dry Eyes Aspirin (Ecotrin) 325 mg PO DAILY [facility] Last Admin: 07/17/17 08:27 Dose: 325 mg Atorvastatin Calcium (Lipitor) 20 mg PO HS [facility] Last Admin: 07/16/17 20:44 Dose: 20 mg Benzonatate (Tessalon) 100 mg PO Q4H PRN PRN Reason: Cough Last Admin: 07/17/17 04:39 Dose: 100 mg Carvedilol (Coreg) 3.125 mg PO BID [facility] Last Admin: 07/17/17 08:27 Dose: 3.125 mg Diphenoxylate HCl/Atropine (Lomotil) 1 tab PO Q6H PRN PRN Reason: Diarrhea/Loose Stools Last Admin: 07/17/17 08:28 Dose: 1 tab Divalproex Sodium (Depakote Er) 1,000 mg PO [facility] Last Admin: 07/16/17 20:44 Dose: 1,000 mg Enoxaparin Sodium (Lovenox) 40 mg SC 0900 [facility] Last Admin: 07/17/17 08:28 Dose: 40 mg Famotidine (Pepcid) 20 mg PO BID [facility] Last Admin: 07/17/17 08:27 Dose: 20 mg Guaifenesin (Robitussin Sf) 200 mg PO Q4H PRN PRN Reason: Cough Last Admin: 07/17/17 04:38 Dose: 200 mg Guaifenesin (Mucinex) 600 mg PO Q12HR [facility] Last Admin: 07/17/17 08:27 Dose: 600 mg Hydralazine HCl (Apresoline) 10 mg SLOW IVP Q4H PRN PRN Reason: Systolic BP > 180 Levofloxacin 500 mg/ Device 100 mls @ 100 mls/hr IVPB 1300 [facility] Last Admin: 07/16/17 13:54 Dose: Not Given Sodium Chloride (Normal Saline 0.9%) 1,000 mls @ 100 mls/hr IV .Q10H [facility] Last Admin: 07/16/17 21:04 Dose: Not Given Ceftriaxone Sodium 1 gm/ (Syringe 0.4 ml/ Sterile Water) 10 mls @ 120 mls/hr SLOW IVP 0600 [facility] Last Admin: 07/17/17 06:56 Dose: 10 mls Vancomycin HCl 750 mg/ Sodium (Chloride) 250 mls @ 250 mls/hr IVPB 0500,1700 [facility] Loperamide HCl (Imodium) 2 mg PO PRN PRN PRN Reason: Diarrhea/Loose Stools Last Admin: 07/17/17 04:38 Dose: 2 mg Loratadine (Claritin) 10 mg PO DAILYPRN PRN PRN Reason: Sinus Symptoms Magnesium Hydroxide (Milk Of Magnesium) 30 ml PO DAILYPRN PRN PRN Reason: Constipation Methylprednisolone Sodium Succinate (Solu-Medrol) 20 mg IVP Q8HR [facility] Last Admin: 07/17/17 05:31 Dose: 20 mg Mineral Oil/White Petrolatum (Eucerin Cream) 0 gm TOP BIDPRN PRN PRN Reason: Dry Skin Miscellaneous Medication (Pharmacy To Dose) 0 each IVPB ASDIR PRN PRN Reason: Pharmacy to Dose PHARMACY VANC Ondansetron HCl (Zofran Odt) 4 mg PO Q6H PRN PRN Reason: Nausea/Vomiting Ondansetron HCl (Zofran) 4 mg IVP Q6H PRN PRN Reason: Nausea/Vomiting Phenol (Chloraseptic [place] 180 Ml Bot) 0 ml PO PRN PRN PRN Reason: Sore Throat Saccharomyces Boulardii (Florastor) 250 mg PO DAILY [facility] Last Admin: 07/17/17 08:27 Dose: 250 mg Senna (Senokot) 2 tab PO HSPRN PRN PRN Reason: Constipation Sodium Chloride ([place] Nasal [place] 0.65%) 0 ml EA NARE QIDPRN PRN PRN Reason: Nasal Congestion Trazodone HCl (Desyrel) 100 mg PO [facility] Last Admin: 07/16/17 20:53 Dose: 100 mg
[2017-07-17] MEDS: Sodium Chloride 0.9% 1,000 ML IV SCH ×2 (11:25→22:55)
[2017-07-17] MEDS ORDERED: Vancomycin HCl 750 MG in Sodium Chloride 0.9% 250 ML 250 ML IVPB SCH (17:00)
[2017-07-17] MEDS: Atorvastatin Calcium 20 MG TAB PO SCH (20:19)
[2017-07-17] MEDS: traZODone HCl 50 MG TAB PO SCH (20:20)
[2017-07-17] MEDS: Cefdinir 300 MG CAP PO SCH (20:28)
[2017-07-18] MEDS: Diabetic Tussin 200 MG/10 ML UDCUP PO PRN (00:07)
[2017-07-18] MEDS: Benzonatate 100 MG CAP PO PRN ×2 (01:54→14:42)
[2017-07-18] MEDS: HYDROcodone/Acetaminophen 5/325 mg Tablet PO PRN ×3 (01:54→14:42)
[2017-07-18] MEDS: Sodium Chloride 0.9% 1,000 ML IV SCH (01:57)
--- NOTE | 2017-07-18 05:42 | CON ---
HISTORY OF PRESENT ILLNESS: Ms. Peterson is a pleasant 66-year-old female. She has known obstructive lung disease. She is not normally followed by a vice provost. She says since the middle of May, she has had intermittent shortness of breath. She has respond ed to steroids, antibiotics and inhalers for periods of time, but she keeps having waxing and waning symptoms. She has been treated for flu. She presented with increasing shortness of breath and chest congestion and subsequently was admitted. She denies fever and says she is finally feeling better. PAST MEDICAL HISTORY: 1. Remarkable for CVA in 2015. 2. Hypertension. 3. Lipid disorder. 4. History of vascular headaches. 5. History of anxiety and depression. 6. History of inpatient psychiatric hospitalization in the 80s. 7. Status post hysterectomy. 8. History of hip replacement. 9. History of tonsillectomy. 10. History of surgery for gastric ulcer. SOCIAL HISTORY: Half pack a day smoker. She drinks occasionally. She denies drug use. Apparently, she has been recently living at the [facility]. FAMILY HISTORY: Positive for hypertension, vascular disease, obstructive lung disease according to h er. MEDICATIONS: Prior to admission, Norvasc, Lipitor, Coreg, [place], Depakote, trazodone, and Celexa. ALLERGIES: She reports allergies to TRAMADOL. REVIEW OF SYSTEMS: Otherwise, 10-point negative except for what was stated in the history of present illness. PHYSICAL EXAMINATION: GENERAL: She is in no distress when I evaluated her. VITAL SIGNS: Her blood pressure was 116/72. She is afebrile, heart rate was 78, respiratory rate 18 , oximetry is 93% on 1.5 liters per minute. HEENT: Pupils are equal. Sclerae are anicteric. NECK: Supple. She had no lymphadenopathy. LUNGS: Remarkable for distant breath sounds. There is only a slightly prolonged expiratory phase. HEART: Regular rhythm. S1 and S2 are normal. ABDOMEN: Soft and nontender. EXTREMITIES: Without asymmetry. LABORATORY DATA: White count 18.5, hemoglobin 10.6, platelets 260,000. Sodium 134, potassium 3.9, c hloride 103, bicarbonate 21, BUN 15, creatinine 0.7, glucose 132. Blood gas yesterday 7.4, CO2 of 36 , pO2 of 54. Urinalysis was unremarkable except for glucose. IMPRESSION: Chronic obstructive pulmonary disease exacerbation with bronchitis. She does have a lef t lower lobe infiltrate suggestive of pneumonia. She has a density in the right mid lung that I would not label as a nodule until we document that her radiograph has not improve in 4-6 weeks. I would agree with ongoing steroids, antibiotics, nebulizer treatments. She is a candidate to switch to p.o. antimicrobial therapy and p.o. steroids given her clinical improvement. I will be happy to follow with the other physicians caring for her. I will be happy to follow her as an outpatient. This is a 50-minute consult, greater than 50% of the time was spent coordinating acute care on the it, reviewing radiographs, reviewing lab work and available records.
[2017-07-18] MEDS: predniSONE 20 MG TAB PO SCH (08:09)
[2017-07-18] MEDS: guaiFENesin ER 600 MG TAB PO SCH ×2 (08:10→20:09)
[2017-07-18] MEDS: Cefdinir 300 MG CAP PO SCH ×2 (08:10→20:10)
[2017-07-18] MEDS: Saccharomyces boulardii 250 MG CAP PO SCH (08:11)
[2017-07-18] MEDS: Famotidine 20 MG TAB PO SCH ×2 (08:12→20:10)
[2017-07-18] MEDS: Enoxaparin Sodium 40 MG/0.4 ML SYRINGE SC SCH (08:12)
[2017-07-18] MEDS: Aspirin 325 mg Enteric Coated Tablet PO SCH (08:12)
[2017-07-18] MEDS: Carvedilol 3.125 MG TAB PO SCH ×2 (08:14→20:10)
[2017-07-18] MEDS: Amlodipine 10 MG TAB PO SCH (08:15)
--- NOTE | 2017-07-18 10:30 | PDOC.PN ---
- Subjective Encounter Start Date: 07/18/17 Encounter Start Time: 08:10 Patient seen and examined. No new complaints. No overnight events - Objective Resuscitation Status: Resuscitation Status FULL:Full Resuscitation MAR Reviewed: Yes Vital Signs & Weight: Vital Signs (12 hours) Temp Pulse Resp BP BP Pulse Ox 07/18/17 08:15 89 167/70 H 07/18/17 08:00 97.9 F 89 22 H 162/71 H 92 L 07/18/17 07:19 77 16 97 07/18/17 04:00 97.8 F 77 20 132/75 94 L 07/18/17 00:30 97.5 F L 83 20 149/82 H 94 L 07/18/17 00:23 73 16 96 Weight Weight 115 lb I&O: 07/17/17 07/18/17 07/19/17 06:59 06:59 06:59 Intake Total 1210 480 Output Total 400 Balance 810 480 Result Diagrams: 07/17/17 04:48 07/17/17 04:47 Phys Exam - Physical Examination Constitutional: NAD HEENT: PERRLA, moist MMs, sclera anicteric Neck: no JVD, supple Respiratory: no wheezing, no rales, no rhonchi Cardiovascular: RRR, no significant murmur, no rub Gastrointestinal: soft, non-tender, no distention, positive bowel sounds Musculoskeletal: no edema, pulses present Neurological: non-focal, normal sensation, moves all 4 limbs Psychiatric: normal affect, A&O x 3 Skin: no rash, normal turgor Dx/Plan (1) Acute respiratory failure with hypoxia Code(s): J96.01 - ACUTE RESPIRATORY FAILURE WITH HYPOXIA Status: Acute (2) Lactic acidosis Code(s): E87.2 - ACIDOSIS Status: Acute (3) Pneumonia Code(s): J18.9 - PNEUMONIA, UNSPECIFIED ORGANISM Status: Acute (4) Sepsis with acute organ dysfunction Code(s): A41.9 - SEPSIS, UNSPECIFIED ORGANISM; R65.20 - SEVERE SEPSIS WITHOUT SEPTIC SHOCK Status: Acute (5) Anemia, normocytic normochromic Code(s): D64.9 - ANEMIA, UNSPECIFIED Status: Chronic (6) Bipolar 1 disorder Code(s): F31.9 - BIPOLAR DISORDER, UNSPECIFIED Status: Chronic (7) COPD (chronic obstructive pulmonary disease) Status: Chronic Qualifiers: (8) HLD (hyperlipidemia) Code(s): E78.5 - HYPERLIPIDEMIA, UNSPECIFIED Status: Chronic Qualifiers: (9) HTN (hypertension) Code(s): I10 - ESSENTIAL (PRIMARY) HYPERTENSION Status: Chronic Qualifiers: (10) Pulmonary nodule, right Code(s): R91.1 - SOLITARY PULMONARY NODULE Status: Chronic - Plan cont current plan of care, continue antibiotics, respiratory therapy * overall pt is doing well * pt prefer to stay one more day * continue omnicef and prednisone * medication reviewed as below * symptomatic treatment. Review of Systems - Review of Systems ENT: negative: Ear Pain, Ear Discharge, Nose Pain, Nose Discharge, Nose Congestion, Mouth Pain, Mouth Swelling, Throat Pain, Throat Swelling, Other Respiratory: negative: Cough, Dry, Shortness of Breath, Hemoptysis, SOB with Excertion, Pleuritic Pain, Sputum, Wheezing Cardiovascular: negative: chest pain, palpitations, orthopnea, paroxysmal nocturnal dyspnea, edema, light headedness, other Gastrointestinal: negative: Nausea, Vomiting, Abdominal Pain, Diarrhea, Constipation, Melena, Hematochezia, Other Genitourinary: negative: Dysuria, Frequency, Incontinence, Hematuria, Retention , Other Musculoskeletal: negative: Neck Pain, Shoulder Pain, Arm Pain, Back Pain, Hand Pain, Leg Pain, Foot Pain, Other Skin: negative: Rash, Lesions, Lee, Bruising, Other - Medications/Allergies Allergies/Adverse Reactions: Allergies Allergy/AdvReac Type Severity Reaction Status Date / Time tramadol Allergy Verified 07/16/17 14:49 Medications: Current Medications Acetaminophen (Tylenol) 650 mg PO Q4H PRN PRN Reason: Headache/Fever or Pain Hydrocodone Bitart/Acetaminophen ([place] 5/325) 1 tab PO Q4H PRN PRN Reason: Pain Last Admin: 07/18/17 08:10 Dose: 1 tab Al Hydroxide/Mg Hydroxide (Maalox) 30 ml PO Q6H PRN PRN Reason: Heartburn or Indigestion Albuterol/Ipratropium (Duoneb) 3 ml NEB [id number] MADHU Last Admin: 07/18/17 07:19 Dose: 3 ml Amlodipine Besylate (Norvasc) 10 mg PO DAILY [facility] Last Admin: 07/18/17 08:15 Dose: 10 mg Artificial Tears (Tears Naturale) 0 drop EA EYE PRN PRN PRN Reason: Dry Eyes Aspirin (Ecotrin) 325 mg PO DAILY [facility] Last Admin: 07/18/17 08:12 Dose: 325 mg Atorvastatin Calcium (Lipitor) 20 mg PO HS [facility] Last Admin: 07/17/17 20:19 Dose: 20 mg Benzonatate (Tessalon) 100 mg PO Q4H PRN PRN Reason: Cough Last Admin: 07/18/17 01:54 Dose: 100 mg Carvedilol (Coreg) 3.125 mg PO BID [facility] Last Admin: 07/18/17 08:14 Dose: 3.125 mg Cefdinir (Omnicef) 300 mg PO BID [facility] Last Admin: 07/18/17 08:10 Dose: 300 mg Diphenoxylate HCl/Atropine (Lomotil) 1 tab PO Q6H PRN PRN Reason: Diarrhea/Loose Stools Last Admin: 07/17/17 20:19 Dose: 1 tab Divalproex Sodium (Depakote Er) 1,000 mg PO [facility] Last Admin: 07/17/17 20:20 Dose: 1,000 mg Enoxaparin Sodium (Lovenox) 40 mg SC 0900 [facility] Last Admin: 07/18/17 08:12 Dose: 40 mg Famotidine (Pepcid) 20 mg PO BID [facility] Last Admin: 07/18/17 08:12 Dose: 20 mg Guaifenesin (Robitussin Sf) 200 mg PO Q4H PRN PRN Reason: Cough Last Admin: 07/18/17 00:07 Dose: 200 mg Guaifenesin (Mucinex) 600 mg PO Q12HR [facility] Last Admin: 07/18/17 08:10 Dose: 600 mg Hydralazine HCl (Apresoline) 10 mg SLOW IVP Q4H PRN PRN Reason: Systolic BP > 180 Loperamide HCl (Imodium) 2 mg PO PRN PRN PRN Reason: Diarrhea/Loose Stools Last Admin: 07/17/17 04:38 Dose: 2 mg Loratadine (Claritin) 10 mg PO DAILYPRN PRN PRN Reason: Sinus Symptoms Magnesium Hydroxide (Milk Of Magnesium) 30 ml PO DAILYPRN PRN PRN Reason: Constipation Mineral Oil/White Petrolatum (Eucerin Cream) 0 gm TOP BIDPRN PRN PRN Reason: Dry Skin Ondansetron HCl (Zofran Odt) 4 mg PO Q6H PRN PRN Reason: Nausea/Vomiting Ondansetron HCl (Zofran) 4 mg IVP Q6H PRN PRN Reason: Nausea/Vomiting Phenol (Chloraseptic [place] 180 Ml Bot) 0 ml PO PRN PRN PRN Reason: Sore Throat Prednisone (Prednisone) 40 mg PO [facility]AM[facility] Last Admin: 07/18/17 08:09 Dose: 40 mg Saccharomyces Boulardii (Florastor) 250 mg PO DAILY [facility] Last Admin: 07/18/17 08:11 Dose: 250 mg Senna (Senokot) 2 tab PO HSPRN PRN PRN Reason: Constipation Sodium Chloride ([place] Nasal [place] 0.65%) 0 ml EA NARE QIDPRN PRN PRN Reason: Nasal Congestion Trazodone HCl (Desyrel) 100 mg PO [facility] Last Admin: 07/17/17 20:20 Dose: 100 mg
--- NOTE | 2017-07-18 13:52 | PRG ---
DATE OF SERVICE: 07/18/2017 SUBJECTIVE: Ms. Peterson says she is feeling a little bit better. PHYSICAL EXAMINATION: VITAL SIGNS: She is afebrile. Her blood pressure is 167/70, heart rate in the 80s, respiratory rate is in the teens, oximetry is 96% on 2 liters. LUNGS: Remarkable for crackles at her left base. HEART: Regular rhythm. ABDOMEN: Soft. LABORATORY DATA: There is no new lab today. IMPRESSION: 1. Pneumonia. 2. Chronic obstructive pulmonary disease. 3. ? pulmonary nodule, this is just we will need to be followed as an outpatient to see if this reso lves with treatment. 4. History of hypertension. She is not quite ready to be discharged, maybe one day this weekend. S he will follow up with me in 3-4 weeks after discharge. She needs a slow prednisone taper to finish out her antibiotics. Continue with nebulizer medicine. We will follow her as long she is in the hos pital.
[2017-07-18] MEDS: Atorvastatin Calcium 20 MG TAB PO SCH (20:10)
[2017-07-18] MEDS: Phenergan/Codeine 10-6.25mg/5ml UDCUP PO PRN (20:10)
[2017-07-18] MEDS: traZODone HCl 50 MG TAB PO SCH (20:10)
[2017-07-19] MEDS: Phenergan/Codeine 10-6.25mg/5ml UDCUP PO PRN ×2 (05:32→20:44)
[2017-07-19] MEDS: HYDROcodone/Acetaminophen 5/325 mg Tablet PO PRN ×4 (05:32→20:20)
[2017-07-19] MEDS: Carvedilol 3.125 MG TAB PO SCH ×2 (09:37→20:20)
[2017-07-19] MEDS: predniSONE 20 MG TAB PO SCH (09:38)
[2017-07-19] MEDS: Saccharomyces boulardii 250 MG CAP PO SCH (09:38)
[2017-07-19] MEDS: guaiFENesin ER 600 MG TAB PO SCH ×2 (09:38→20:20)
[2017-07-19] MEDS: Amlodipine 10 MG TAB PO SCH (09:38)
[2017-07-19] MEDS: Cefdinir 300 MG CAP PO SCH ×2 (09:38→20:20)
[2017-07-19] MEDS: Famotidine 20 MG TAB PO SCH ×2 (09:39→20:20)
[2017-07-19] MEDS: Aspirin 325 mg Enteric Coated Tablet PO SCH (09:40)
[2017-07-19] MEDS: Enoxaparin Sodium 40 MG/0.4 ML SYRINGE SC SCH (09:40)
[2017-07-19] MEDS: Diabetic Tussin 200 MG/10 ML UDCUP PO PRN ×2 (09:46→16:42)
--- NOTE | 2017-07-19 11:25 | PDOC.PN ---
- Subjective Encounter Start Date: 07/19/17 Encounter Start Time: 11:23 Patient seen and examined, states she continues to have significant coughing overnight and is not feeling well. Patient states she also was not able to slleep well overnight, no family at bedside, all questions answered. - Objective Resuscitation Status: Resuscitation Status FULL:Full Resuscitation Vital Signs & Weight: Vital Signs (12 hours) Temp Pulse Resp BP BP Pulse Ox 07/19/17 11:18 75 16 07/19/17 09:38 65 129/76 07/19/17 08:00 98.2 F 65 22 H 95 07/19/17 07:44 98.2 F 67 22 H 129/76 90 L 07/19/17 05:21 22 H 07/19/17 04:00 98.4 F 69 16 161/75 H 95 07/19/17 02:52 93 L 07/19/17 00:40 12 07/18/17 23:27 98.6 F 82 18 135/67 95 Weight Weight 115 lb I&O: 07/18/17 07/19/17 07/20/17 06:59 06:59 06:59 Intake Total 480 500 Balance 480 500 Result Diagrams: 07/17/17 04:48 07/17/17 04:47 Phys Exam - Physical Examination mild dresstress HEENT: PERRLA, moist MMs Neck: no nodes, no JVD Respiratory: wheezing present coughing Cardiovascular: RRR, no significant murmur Gastrointestinal: soft, non-tender Musculoskeletal: no edema, pulses present Neurological: non-focal, normal sensation Dx/Plan (1) Cough Code(s): R05 - COUGH Status: Acute (2) Pneumonia Code(s): J18.9 - PNEUMONIA, UNSPECIFIED ORGANISM Status: Acute (3) COPD (chronic obstructive pulmonary disease) Status: Chronic Qualifiers: (4) HLD (hyperlipidemia) Code(s): E78.5 - HYPERLIPIDEMIA, UNSPECIFIED Status: Chronic Qualifiers: (5) HTN (hypertension) Code(s): I10 - ESSENTIAL (PRIMARY) HYPERTENSION Status: Chronic Qualifiers: (6) Pulmonary nodule, right Code(s): R91.1 - SOLITARY PULMONARY NODULE Status: Chronic - Plan * continue current plan of care * possible discharge in AM if patient feeling well with no complaints * cont w/ abx and steroids * afebrile * case and plan d/w patient at length, she understands and agrees with this plan
[2017-07-19] MEDS: Diphenoxylate HCl/Atropine Tablet PO PRN (15:01)
--- NOTE | 2017-07-19 20:19 | PRG ---
DATE OF SERVICE: 07/19/2017 SERVICE: Pulmonary Medicine. INTERVAL HISTORY: The patient is actually doing really quite well from a respiratory standpoint. That being said, over the last 2-3 days, she is indicated that she has had worsening in her breathing. She feels that her lungs are clear but whenever she is lying down flat, last night, she woke up a little bit short-winded. She is able go back to sleep; however. There has been no other interval change to her condition and there were no overnight events. PHYSICAL EXAMINATION: VITAL SIGNS: Afebrile, pulse 72, blood pressure 123/54, respirations 20, saturation 89% on room air. On 2 liters nasal cannula, she runs 96%. GENERAL: Patient is awake, alert, in no apparent distress. LUNGS: Decent air entry. There is a slightly prolonged expiratory phase. Wheezing is minimal, but crackles predominate. HEART: Normal rate, regular. ABDOMEN: Soft, nontender, nondistended. Bowel sounds are positive. MUSCULOSKELETAL: No cyanosis or clubbing. There is no pitting in the bilateral lower extremities. NEUROLOGIC: Grossly nonfocal. LABORATORY DATA: WBC 18.5, hemoglobin 10.6, platelets 260,000. Neutrophil count is 73%, +20 bands. Comprehensive metabolic profile as previously unremarkable. Urinalysis is negative. Influenza A and B are both negative. Urine culture is negative. Blood culture is negative to date. ASSESSMENT: 1. Acute hypoxic respiratory failure. 2. Chronic obstructive pulmonary disease with acute exacerbation. 3. Volume overload, minimal. 4. Pulmonary nodule versus nodular infiltrate. PLAN: I will provide her with a dose of Lasix. This will be done tomorrow morning. If she is off of oxygen, she can be considered for transition out of the hospital. Pulmonary Critical Care will continue to follow while the patient remains in this location. I told her that she will need to set up an appointment with Dr. Abrams in the outpatient setting. DARCI
[2017-07-19] MEDS: Atorvastatin Calcium 20 MG TAB PO SCH (20:20)
[2017-07-19] MEDS: Loperamide HCl 2 MG CAP PO PRN (20:20)
[2017-07-19] MEDS: traZODone HCl 50 MG TAB PO SCH (20:20)
[2017-07-20] MEDS: Furosemide 40 MG/4 ML VIAL SLOW IVP SCH ×2 (06:00→13:59)
[2017-07-20] MEDS: Loperamide HCl 2 MG CAP PO PRN ×4 (07:33→21:54)
[2017-07-20] MEDS: HYDROcodone/Acetaminophen 5/325 mg Tablet PO PRN ×4 (07:33→20:10)
[2017-07-20] MEDS: Saccharomyces boulardii 250 MG CAP PO SCH (08:08)
[2017-07-20] MEDS: guaiFENesin ER 600 MG TAB PO SCH ×2 (08:08→20:10)
[2017-07-20] MEDS: predniSONE 20 MG TAB PO SCH (08:08)
[2017-07-20] MEDS: Famotidine 20 MG TAB PO SCH ×2 (08:08→20:10)
[2017-07-20] MEDS: Cefdinir 300 MG CAP PO SCH ×2 (08:08→20:10)
[2017-07-20] MEDS: Carvedilol 3.125 MG TAB PO SCH ×2 (08:08→20:10)
[2017-07-20] MEDS: Aspirin 325 mg Enteric Coated Tablet PO SCH (08:09)
[2017-07-20] MEDS: Enoxaparin Sodium 40 MG/0.4 ML SYRINGE SC SCH (08:09)
[2017-07-20] MEDS: Amlodipine 10 MG TAB PO SCH (08:09)
[2017-07-20] MEDS: Diabetic Tussin 200 MG/10 ML UDCUP PO PRN ×2 (08:14→16:40)
--- NOTE | 2017-07-20 12:15 | PDOC.PN ---
- Subjective Encounter Start Date: 07/20/17 Encounter Start Time: 12:13 Patient seen and examined, states she still feels weak and is coughing. Patient states she also was having some SOB when she went from her bed to the bathroom earlier today. No other issues. - Objective Resuscitation Status: Resuscitation Status FULL:Full Resuscitation Vital Signs & Weight: Vital Signs (12 hours) Temp Pulse Resp BP BP BP Pulse Ox 07/20/17 08:09 60 126/66 07/20/17 08:00 98.1 F 60 22 H 86 L 07/20/17 07:37 98.1 F 60 22 H 126/66 86 L 07/20/17 05:57 59 L 16 90 L 07/20/17 04:00 98.2 F 63 18 144/72 H 93 L 07/20/17 00:47 65 16 93 L Weight Weight 115 lb I&O: 07/19/17 07/20/17 07/21/17 06:59 06:59 06:59 Intake Total 500 1472 240 Balance 500 1472 240 Result Diagrams: 07/17/17 04:48 07/17/17 04:47 Phys Exam - Physical Examination Constitutional: NAD HEENT: PERRLA, moist MMs, sclera anicteric Neck: no nodes, no JVD Respiratory: no wheezing, no rales, clear to auscultation bilateral Cardiovascular: RRR, no significant murmur Gastrointestinal: soft, non-tender, no distention Musculoskeletal: no edema, pulses present Neurological: non-focal, normal sensation Psychiatric: normal affect, A&O x 3 Dx/Plan (1) Cough Code(s): R05 - COUGH Status: Acute (2) Pneumonia Code(s): J18.9 - PNEUMONIA, UNSPECIFIED ORGANISM Status: Acute (3) COPD (chronic obstructive pulmonary disease) Status: Chronic Qualifiers: (4) HLD (hyperlipidemia) Code(s): E78.5 - HYPERLIPIDEMIA, UNSPECIFIED Status: Chronic Qualifiers: (5) HTN (hypertension) Code(s): I10 - ESSENTIAL (PRIMARY) HYPERTENSION Status: Chronic Qualifiers: (6) Pulmonary nodule, right Code(s): R91.1 - SOLITARY PULMONARY NODULE Status: Chronic - Plan * continue current plan * patient states she still feels bad and says she's not back to her baseline normal yet * DC option discussed with her but she says she does not feel ready * DC plans in 24-48hrs for now * case and plan d/w patient at length, she understands and agrees with this plan
[2017-07-20] MEDS: traZODone HCl 50 MG TAB PO SCH (20:10)
[2017-07-20] MEDS: Atorvastatin Calcium 20 MG TAB PO SCH (20:10)
[2017-07-20] MEDS: Phenergan/Codeine 10-6.25mg/5ml UDCUP PO PRN (20:11)
[2017-07-20] MEDS: Diphenoxylate HCl/Atropine Tablet PO PRN (20:56)
--- NOTE | 2017-07-20 22:36 | PRG ---
DATE OF SERVICE: 07/20/2017 SERVICE: Pulmonary Medicine. INTERVAL HISTORY: The patient feels like she is breathing a little bit better. She is a little bumm ed up because she ended up with more diarrhea. This is a chronic thing for her and it does not seem to be anything out of the ordinary. On multiple occasions today, she got up and walked the unit. Vangie ellis also walked down to the gift shop and around the entire hospital. Apparently, she did not have muc h as she was doing any of this off oxygen. PHYSICAL EXAMINATION: VITAL SIGNS: Afebrile, pulse 74, blood pressure 148/70, respiration is 20, saturation 95% on room ai r. GENERAL: Patient is awake, alert, in no apparent distress. LUNGS: Excellent air entry. There is no longer rhonchi present. I do not appreciate crackles. The re was a slightly prolonged expiratory phase. Minimal wheezing. HEART: Normal rate, regular. ABDOMEN: Soft, nontender, nondistended. Bowel sounds are positive. MUSCULOSKELETAL: No cyanosis or clubbing. There is no pitting in the bilateral lower extremities. NEUROLOGIC: Grossly nonfocal. ASSESSMENT: 1. Acute hypoxic respiratory failure, resolved. 2. Chronic obstructive pulmonary disease with acute exacerbation, improved. 3. Pulmonary nodule, versus nodular infiltrate. PLAN: The patient is currently euvolemic. We will continue supportive care including nebulized medi cations, steroids, and antibiotics. From my perspective, she is likely stable for transition out of the hospital. She will need to follow up with Dr. Abrams in the outpatient setting with a repeat ches t x-ray to make certain if this nodular infiltrate resolves.
[2017-07-21] MEDS: Diabetic Tussin 200 MG/10 ML UDCUP PO PRN (00:21)
[2017-07-21] MEDS: Loperamide HCl 2 MG CAP PO PRN ×6 (00:21→20:51)
[2017-07-21] MEDS: Phenergan/Codeine 10-6.25mg/5ml UDCUP PO PRN ×5 (00:31→22:54)
[2017-07-21] MEDS: HYDROcodone/Acetaminophen 5/325 mg Tablet PO PRN ×4 (01:54→21:03)
[2017-07-21] MEDS: Diphenoxylate HCl/Atropine Tablet PO PRN ×3 (03:19→17:25)
[2017-07-21 05:14] LABS: #Lymphocytes 1.8 thou/uL (1.20-3.40); #Monocytes 0.8 thou/uL (0.11-0.59); #Neutrophils 5.1 thou/uL (1.40-6.50); %Basophils 0.4 % (0.0-1.0); %Eosinophils 0.2 % (0.0-10.0); %Lymphocytes 22.8 % (21.0-51.0); %Monocytes 10.2 % (0.0-10.0); %Neutrophils 66.4 % (42.0-75.0); Hemoglobin 10.9 g/dL (12.0-16.0); Mean Corpuscular HGB CONC 31.7 g/dL (32.0-36.0); Mean Corpuscular Hemoglobin 28.8 pg (27.0-31.0); Mean Corpuscular Volume 90.8 fl (81.0-99.0); Mean Platelet Volume 6.2 fL (7.4-10.4); Platelet Count 372 thou/uL (130-400); RBC Distribution Width 12.9 % (11.5-14.5); Red Blood Cell (RBC) Count 3.78 mill/uL (4.20-5.40); White Blood Cell (WBC) Count 7.8 thou/uL (4.8-10.8)
[2017-07-21 05:35] LABS: Anion Gap 15 mmol/L (10-20); BUN (Urea Nitrogen) 10 mg/dL (9.8-20.1); Calc. Creatinine Clearance 64 mL/min (70-130); Calcium 8.6 mg/dL (7.8-10.44); Carbon Dioxide 32 mmol/L (23-31); Chloride 90 mmol/L (98-107); Estimated GFR-MDRD 82; Glucose 129 mg/dL (80-115); Magnesium 1.6 mg/dL (1.6-2.6); Sodium 135 mmol/L (136-145)
[2017-07-21 05:43] LABS: Potassium 2.4 mmol/L (3.5-5.1)
[2017-07-21] MEDS ORDERED: Potassium Chloride 20 MEQ TAB PO SCH (06:15)
[2017-07-21] MEDS: Famotidine 20 MG TAB PO SCH ×2 (08:01→20:51)
[2017-07-21] MEDS: Saccharomyces boulardii 250 MG CAP PO SCH (08:01)
[2017-07-21] MEDS: predniSONE 20 MG TAB PO SCH (08:01)
[2017-07-21] MEDS: Amlodipine 10 MG TAB PO SCH (08:01)
[2017-07-21] MEDS: Aspirin 325 mg Enteric Coated Tablet PO SCH (08:02)
[2017-07-21] MEDS: guaiFENesin ER 600 MG TAB PO SCH ×2 (08:02→20:51)
[2017-07-21] MEDS: Cefdinir 300 MG CAP PO SCH ×2 (08:02→20:51)
[2017-07-21] MEDS: Enoxaparin Sodium 40 MG/0.4 ML SYRINGE SC SCH (08:02)
[2017-07-21] MEDS: Carvedilol 3.125 MG TAB PO SCH ×2 (08:02→20:51)
[2017-07-21 09:47] LABS: Lactic Acid 2.7 mmol/L (0.5-2.2)
[2017-07-21] MEDS: Potassium Chloride 20 MEQ TAB PO SCH ×2 (10:51→17:25)
--- NOTE | 2017-07-21 12:15 | PDOC.PN ---
- Subjective Encounter Start Date: 07/21/17 Encounter Start Time: 08:30 Patient seen and examined. No new complaints. No overnight events - Objective Resuscitation Status: Resuscitation Status FULL:Full Resuscitation MAR Reviewed: Yes Vital Signs & Weight: Vital Signs (12 hours) Temp Pulse Resp BP BP Pulse Ox 07/21/17 11:00 95 07/21/17 10:45 97.5 F L 70 20 151/77 H 95 07/21/17 08:00 98.5 F 70 18 07/21/17 07:22 98.5 F 70 18 154/78 H 90 L 07/21/17 06:45 70 20 96 07/21/17 04:00 98.4 F 70 18 162/81 H 96 Weight Weight 115 lb I&O: 07/20/17 07/21/17 07/22/17 06:59 06:59 06:59 Intake Total 1472 2870 Balance 1472 2870 Result Diagrams: 07/21/17 04:34 07/21/17 04:34 Phys Exam - Physical Examination Constitutional: NAD HEENT: PERRLA, moist MMs, sclera anicteric Neck: no JVD, supple Respiratory: no wheezing, no rales, no rhonchi Cardiovascular: RRR, no significant murmur, no rub Gastrointestinal: soft, non-tender, no distention, positive bowel sounds Musculoskeletal: no edema, pulses present Neurological: non-focal, normal sensation Psychiatric: normal affect, A&O x 3 Skin: no rash, normal turgor Dx/Plan (1) Acute respiratory failure with hypoxia Code(s): J96.01 - ACUTE RESPIRATORY FAILURE WITH HYPOXIA Status: Acute (2) Lactic acidosis Code(s): E87.2 - ACIDOSIS Status: Acute (3) Pneumonia Code(s): J18.9 - PNEUMONIA, UNSPECIFIED ORGANISM Status: Acute (4) Sepsis with acute organ dysfunction Code(s): A41.9 - SEPSIS, UNSPECIFIED ORGANISM; R65.20 - SEVERE SEPSIS WITHOUT SEPTIC SHOCK Status: Acute (5) Anemia, normocytic normochromic Code(s): D64.9 - ANEMIA, UNSPECIFIED Status: Chronic (6) Bipolar 1 disorder Code(s): F31.9 - BIPOLAR DISORDER, UNSPECIFIED Status: Chronic (7) COPD (chronic obstructive pulmonary disease) Status: Chronic Qualifiers: (8) HLD (hyperlipidemia) Code(s): E78.5 - HYPERLIPIDEMIA, UNSPECIFIED Status: Chronic Qualifiers: (9) HTN (hypertension) Code(s): I10 - ESSENTIAL (PRIMARY) HYPERTENSION Status: Chronic Qualifiers: (10) Pulmonary nodule, right Code(s): R91.1 - SOLITARY PULMONARY NODULE Status: Chronic - Plan cont current plan of care, continue antibiotics, respiratory therapy * lactic acid is high * today will check room air oxygen level * medication reviewed as below * symptomatic treatment * subjectively pt has still many complaints * will monitor Review of Systems - Review of Systems Constitutional: negative: fever, chills, sweats, weakness, malaise, other Eyes: negative: Pain, Vision Change, Conjunctivae Inflammation, Eyelid Inflammation, Redness, Other ENT: negative: Ear Pain, Ear Discharge, Nose Pain, Nose Discharge, Nose Congestion, Mouth Pain, Mouth Swelling, Throat Pain, Throat Swelling, Other Respiratory: Cough, Shortness of Breath, SOB with Excertion Cardiovascular: negative: chest pain, palpitations, orthopnea, paroxysmal nocturnal dyspnea, edema, light headedness, other Gastrointestinal: negative: Nausea, Vomiting, Abdominal Pain, Diarrhea, Constipation, Melena, Hematochezia, Other Genitourinary: negative: Dysuria, Frequency, Incontinence, Hematuria, Retention , Other Musculoskeletal: negative: Neck Pain, Shoulder Pain, Arm Pain, Back Pain, Hand Pain, Leg Pain, Foot Pain, Other Skin: negative: Rash, Lesions, Lee, Bruising, Other - Medications/Allergies Allergies/Adverse Reactions: Allergies Allergy/AdvReac Type Severity Reaction Status Date / Time tramadol Allergy Verified 07/16/17 14:49 Medications: Current Medications Acetaminophen (Tylenol) 650 mg PO Q4H PRN PRN Reason: Headache/Fever or Pain Hydrocodone Bitart/Acetaminophen ([place] 5/325) 1 tab PO Q4H PRN PRN Reason: Pain Last Admin: 07/21/17 06:38 Dose: 1 tab Al Hydroxide/Mg Hydroxide (Maalox) 30 ml PO Q6H PRN PRN Reason: Heartburn or Indigestion Last Admin: 07/21/17 11:53 Dose: 30 ml Albuterol/Ipratropium (Duoneb) 3 ml NEB [id number] [facility] Last Admin: 07/21/17 06:45 Dose: 3 ml Amlodipine Besylate (Norvasc) 10 mg PO DAILY [facility] Last Admin: 07/21/17 08:01 Dose: 10 mg Artificial Tears (Tears Naturale) 0 drop EA EYE PRN PRN PRN Reason: Dry Eyes Aspirin (Ecotrin) 325 mg PO DAILY [facility] Last Admin: 07/21/17 08:02 Dose: 325 mg Atorvastatin Calcium (Lipitor) 20 mg PO [facility] Last Admin: 07/20/17 20:10 Dose: 20 mg Carvedilol (Coreg) 3.125 mg PO BID [facility] Last Admin: 07/21/17 08:02 Dose: 3.125 mg Cefdinir (Omnicef) 300 mg PO BID [facility] Last Admin: 07/21/17 08:02 Dose: 300 mg Diphenoxylate HCl/Atropine (Lomotil) 1 tab PO Q6H PRN PRN Reason: Diarrhea/Loose Stools Last Admin: 07/21/17 10:51 Dose: 1 tab Divalproex Sodium (Depakote Er) 1,000 mg PO [facility] Last Admin: 07/20/17 20:10 Dose: 1,000 mg Enoxaparin Sodium (Lovenox) 40 mg SC 0900 [facility] Last Admin: 07/21/17 08:02 Dose: 40 mg Famotidine (Pepcid) 20 mg PO BID [facility] Last Admin: 07/21/17 08:01 Dose: 20 mg Guaifenesin (Robitussin Sf) 200 mg PO Q4H PRN PRN Reason: Cough Last Admin: 07/21/17 00:21 Dose: 200 mg Guaifenesin (Mucinex) 600 mg PO Q12HR [facility] Last Admin: 07/21/17 08:02 Dose: 600 mg Hydralazine HCl (Apresoline) 10 mg SLOW IVP Q4H PRN PRN Reason: Systolic BP > 180 Loperamide HCl (Imodium) 2 mg PO PRN PRN PRN Reason: Diarrhea/Loose Stools Last Admin: 07/21/17 08:06 Dose: 2 mg Loratadine (Claritin) 10 mg PO DAILYPRN PRN PRN Reason: Sinus Symptoms Magnesium Hydroxide (Milk Of Magnesium) 30 ml PO DAILYPRN PRN PRN Reason: Constipation Mineral Oil/White Petrolatum (Eucerin Cream) 0 gm TOP BIDPRN PRN PRN Reason: Dry Skin Ondansetron HCl (Zofran Odt) 4 mg PO Q6H PRN PRN Reason: Nausea/Vomiting Last Admin: 07/18/17 12:38 Dose: 4 mg Ondansetron HCl (Zofran) 4 mg IVP Q6H PRN PRN Reason: Nausea/Vomiting Last Admin: 07/19/17 15:01 Dose: 4 mg Phenol (Chloraseptic [place] 180 Ml Bot) 0 ml PO PRN PRN PRN Reason: Sore Throat Potassium Chloride (K-Dur) 40 meq PO 1200,1800 [facility] Stop: 07/21/17 18:01 Last Admin: 07/21/17 10:51 Dose: 40 meq Prednisone (Prednisone) 40 mg PO QAM-[facility] Last Admin: 07/21/17 08:01 Dose: 40 mg Promethazine HCl/Codeine (Phenergan/Codeine Syrup) 5 ml PO Q4H PRN PRN Reason: SEVERE COUGH Last Admin: 07/21/17 10:50 Dose: 5 ml Saccharomyces Boulardii (Florastor) 250 mg PO DAILY [facility] Last Admin: 07/21/17 08:01 Dose: 250 mg Senna (Senokot) 2 tab PO HSPRN PRN PRN Reason: Constipation Sodium Chloride ([place] Nasal [place] 0.65%) 0 ml EA NARE QIDPRN PRN PRN Reason: Nasal Congestion Trazodone HCl (Desyrel) 100 mg PO [facility] Last Admin: 07/20/17 20:10 Dose: 100 mg
--- NOTE | 2017-07-21 19:57 | PRG ---
DATE OF SERVICE: 07/21/2017 SUBJECTIVE: Mayra Peterson says she is feeling better. She is not on oxygen mask. She is walking in the [place]. OBJECTIVE: VITAL SIGNS: She is afebrile, heart rate 83, respiratory rate 20, oximetry is 94%. blood pressure 1 63/80. LUNGS: Clear. HEART: Regular rhythm. LABORATORY DATA: White count 7.8, hemoglobin 10.9, platelets 372. Sodium 135, potassium 2.4, chloride 90, bicarbonate 32, BUN 10, creatinine 0.7. IMPRESSION: 1. Chronic obstructive pulmonary disease exacerbation with pneumonia. 2. Pulmonary nodule. I think she could be discharged in the morning. She will follow up with me in 2 to 3 weeks for repea t radiograph. She should taper steroids over a week to 10 days and nebulizer treatments and a short course of antibiotics.
[2017-07-21] MEDS: traZODone HCl 50 MG TAB PO SCH (20:51)
[2017-07-21] MEDS: Atorvastatin Calcium 20 MG TAB PO SCH (20:51)
[2017-07-22] MEDS: Diphenoxylate HCl/Atropine Tablet PO PRN ×2 (01:19→10:14)
[2017-07-22 06:36] LABS: #Eosinphils 0.1 thou/uL (0.0-0.7); #Monocytes 0.9 thou/uL (0.11-0.59); #Neutrophils 4.4 thou/uL (1.40-6.50); %Basophils 0.2 % (0.0-1.0); %Eosinophils 1.1 % (0.0-10.0); %Lymphocytes 26.9 % (21.0-51.0); %Monocytes 12.1 % (0.0-10.0); %Neutrophils 59.7 % (42.0-75.0); Hemoglobin 10.1 g/dL (12.0-16.0); Mean Corpuscular Volume 90.8 fl (81.0-99.0); Mean Platelet Volume 6.4 fL (7.4-10.4); Platelet Count 346 thou/uL (130-400); RBC Distribution Width 13.2 % (11.5-14.5); Red Blood Cell (RBC) Count 3.36 mill/uL (4.20-5.40); White Blood Cell (WBC) Count 7.4 thou/uL (4.8-10.8)
[2017-07-22 06:52] LABS: Anion Gap 10 mmol/L (10-20); BUN (Urea Nitrogen) 13 mg/dL (9.8-20.1); Calc. Creatinine Clearance 69 mL/min (70-130); Calcium 8.4 mg/dL (7.8-10.44); Carbon Dioxide 30 mmol/L (23-31); Chloride 97 mmol/L (98-107); Estimated GFR-MDRD 90; Glucose 116 mg/dL (80-115); Magnesium 1.6 mg/dL (1.6-2.6); Potassium 3.3 mmol/L (3.5-5.1); Sodium 134 mmol/L (136-145)
[2017-07-22] MEDS ORDERED: Potassium Chloride 20 MEQ TAB PO SCH (07:45)
[2017-07-22] MEDS: Loperamide HCl 2 MG CAP PO PRN (08:43)
[2017-07-22] MEDS: Amlodipine 10 MG TAB PO SCH (08:43)
[2017-07-22] MEDS: Famotidine 20 MG TAB PO SCH (08:43)
[2017-07-22] MEDS: Cefdinir 300 MG CAP PO SCH (08:43)
[2017-07-22] MEDS: Saccharomyces boulardii 250 MG CAP PO SCH (08:43)
[2017-07-22] MEDS: guaiFENesin ER 600 MG TAB PO SCH (08:44)
[2017-07-22] MEDS: Aspirin 325 mg Enteric Coated Tablet PO SCH (08:44)
[2017-07-22] MEDS: Carvedilol 3.125 MG TAB PO SCH (08:44)
[2017-07-22] MEDS: predniSONE 20 MG TAB PO SCH (08:44)
[2017-07-22] MEDS: HYDROcodone/Acetaminophen 5/325 mg Tablet PO PRN (08:45)
[2017-07-22] MEDS: Enoxaparin Sodium 40 MG/0.4 ML SYRINGE SC SCH (08:45)
[2017-07-22] MEDS ORDERED: Nystatin 500,000 UNITS/5 ML UDCUP SSW SCH ×2 (10:00→13:00)
--- NOTE | 2017-07-22 10:11 | PDOC.PN ---
- Subjective Encounter Start Date: 07/22/17 Encounter Start Time: 07:10 Patient seen and examined. No new complaints. No overnight events - Objective Resuscitation Status: Resuscitation Status FULL:Full Resuscitation MAR Reviewed: Yes Vital Signs & Weight: Vital Signs (12 hours) Temp Pulse Resp BP BP Pulse Ox 07/22/17 08:43 145/84 H 07/22/17 08:06 98.4 F 69 16 111/56 L 94 L 07/22/17 08:00 98.4 F 69 16 07/22/17 06:42 68 16 94 L 07/22/17 04:54 98.5 F 65 20 117/73 94 L 07/22/17 01:26 93 L 07/22/17 00:50 98.4 F 74 20 102/62 93 L Weight Weight 115 lb I&O: 07/21/17 07/22/17 07/23/17 06:59 06:59 06:59 Intake Total 2870 1500 Output Total 1 Balance 2870 1499 Result Diagrams: 07/22/17 05:38 07/22/17 05:38 Phys Exam - Physical Examination Constitutional: NAD HEENT: PERRLA, moist MMs, sclera anicteric Neck: no JVD, supple Respiratory: no wheezing, no rales, no rhonchi Cardiovascular: RRR, no significant murmur, no rub Gastrointestinal: soft, non-tender, no distention, positive bowel sounds Musculoskeletal: no edema, pulses present Neurological: non-focal, normal sensation, moves all 4 limbs Psychiatric: normal affect, A&O x 3 Skin: no rash, normal turgor Dx/Plan (1) Acute respiratory failure with hypoxia Code(s): J96.01 - ACUTE RESPIRATORY FAILURE WITH HYPOXIA Status: Acute (2) Lactic acidosis Code(s): E87.2 - ACIDOSIS Status: Acute (3) Pneumonia Code(s): J18.9 - PNEUMONIA, UNSPECIFIED ORGANISM Status: Acute (4) Sepsis with acute organ dysfunction Code(s): A41.9 - SEPSIS, UNSPECIFIED ORGANISM; R65.20 - SEVERE SEPSIS WITHOUT SEPTIC SHOCK Status: Acute (5) Anemia, normocytic normochromic Code(s): D64.9 - ANEMIA, UNSPECIFIED Status: Chronic (6) Bipolar 1 disorder Code(s): F31.9 - BIPOLAR DISORDER, UNSPECIFIED Status: Chronic (7) COPD (chronic obstructive pulmonary disease) Status: Chronic Qualifiers: (8) HLD (hyperlipidemia) Code(s): E78.5 - HYPERLIPIDEMIA, UNSPECIFIED Status: Chronic Qualifiers: (9) HTN (hypertension) Code(s): I10 - ESSENTIAL (PRIMARY) HYPERTENSION Status: Chronic Qualifiers: (10) Pulmonary nodule, right Code(s): R91.1 - SOLITARY PULMONARY NODULE Status: Chronic (11) Oral thrush Code(s): B37.0 - CANDIDAL STOMATITIS Status: Acute - Plan cont current plan of care, continue antibiotics, respiratory therapy * diflucan for oral thrush * steroid taper * medication reviewed as below * medically stable for discharge * see discharge summery * outpt follow up. Review of Systems - Review of Systems ENT: negative: Ear Pain, Ear Discharge, Nose Pain, Nose Discharge, Nose Congestion, Mouth Pain, Mouth Swelling, Throat Pain, Throat Swelling, Other Respiratory: negative: Cough, Dry, Shortness of Breath, Hemoptysis, SOB with Excertion, Pleuritic Pain, Sputum, Wheezing Cardiovascular: negative: chest pain, palpitations, orthopnea, paroxysmal nocturnal dyspnea, edema, light headedness, other Gastrointestinal: negative: Nausea, Vomiting, Abdominal Pain, Diarrhea, Constipation, Melena, Hematochezia, Other Genitourinary: negative: Dysuria, Frequency, Incontinence, Hematuria, Retention , Other Musculoskeletal: negative: Neck Pain, Shoulder Pain, Arm Pain, Back Pain, Hand Pain, Leg Pain, Foot Pain, Other Skin: negative: Rash, Lesions, Lee, Bruising, Other - Medications/Allergies Allergies/Adverse Reactions: Allergies Allergy/AdvReac Type Severity Reaction Status Date / Time tramadol Allergy Verified 07/16/17 14:49 Medications: Current Medications Acetaminophen (Tylenol) 650 mg PO Q4H PRN PRN Reason: Headache/Fever or Pain Hydrocodone Bitart/Acetaminophen ([place] 5/325) 1 tab PO Q4H PRN PRN Reason: Pain Last Admin: 07/22/17 08:45 Dose: 1 tab Al Hydroxide/Mg Hydroxide (Maalox) 30 ml PO Q6H PRN PRN Reason: Heartburn or Indigestion Last Admin: 07/21/17 11:53 Dose: 30 ml Albuterol/Ipratropium (Duoneb) 3 ml NEB [id number] MADHU Last Admin: 07/22/17 06:42 Dose: 3 ml Amlodipine Besylate (Norvasc) 10 mg PO DAILY [facility] Last Admin: 07/22/17 08:43 Dose: 10 mg Artificial Tears (Tears Naturale) 0 drop EA EYE PRN PRN PRN Reason: Dry Eyes Aspirin (Ecotrin) 325 mg PO DAILY [facility] Last Admin: 07/22/17 08:44 Dose: 325 mg Atorvastatin Calcium (Lipitor) 20 mg PO [facility] Last Admin: 07/21/17 20:51 Dose: 20 mg Carvedilol (Coreg) 3.125 mg PO BID [facility] Last Admin: 07/22/17 08:44 Dose: 3.125 mg Cefdinir (Omnicef) 300 mg PO BID [facility] Last Admin: 07/22/17 08:43 Dose: 300 mg Diphenoxylate HCl/Atropine (Lomotil) 1 tab PO Q6H PRN PRN Reason: Diarrhea/Loose Stools Last Admin: 07/22/17 01:19 Dose: 1 tab Divalproex Sodium (Depakote Er) 1,000 mg PO [facility] Last Admin: 07/21/17 20:51 Dose: 1,000 mg Enoxaparin Sodium (Lovenox) 40 mg SC 0900 [facility] Last Admin: 07/22/17 08:45 Dose: Not Given Famotidine (Pepcid) 20 mg PO BID [facility] Last Admin: 07/22/17 08:43 Dose: 20 mg Guaifenesin (Robitussin Sf) 200 mg PO Q4H PRN PRN Reason: Cough Last Admin: 07/21/17 00:21 Dose: 200 mg Guaifenesin (Mucinex) 600 mg PO Q12HR [facility] Last Admin: 07/22/17 08:44 Dose: 600 mg Hydralazine HCl (Apresoline) 10 mg SLOW IVP Q4H PRN PRN Reason: Systolic BP > 180 Loperamide HCl (Imodium) 2 mg PO PRN PRN PRN Reason: Diarrhea/Loose Stools Last Admin: 07/22/17 08:43 Dose: 2 mg Loratadine (Claritin) 10 mg PO DAILYPRN PRN PRN Reason: Sinus Symptoms Magnesium Hydroxide (Milk Of Magnesium) 30 ml PO DAILYPRN PRN PRN Reason: Constipation Mineral Oil/White Petrolatum (Eucerin Cream) 0 gm TOP BIDPRN PRN PRN Reason: Dry Skin Nystatin (Mycostatin) 500,000 units SSW QID [facility] Nystatin (Mycostatin) 500,000 units SSW NOW [facility] Stop: 07/22/17 12:00 Ondansetron HCl (Zofran Odt) 4 mg PO Q6H PRN PRN Reason: Nausea/Vomiting Last Admin: 07/18/17 12:38 Dose: 4 mg Ondansetron HCl (Zofran) 4 mg IVP Q6H PRN PRN Reason: Nausea/Vomiting Last Admin: 07/19/17 15:01 Dose: 4 mg Phenol (Chloraseptic [place] 180 Ml Bot) 0 ml PO PRN PRN PRN Reason: Sore Throat Potassium Chloride (K-Dur) 40 meq PO NOW [facility] Stop: 07/22/17 11:00 Last Admin: 07/22/17 08:44 Dose: 40 meq Prednisone (Prednisone) 40 mg PO [facility] Last Admin: 07/22/17 08:44 Dose: 40 mg Promethazine HCl/Codeine (Phenergan/Codeine Syrup) 5 ml PO Q4H PRN PRN Reason: SEVERE COUGH Last Admin: 07/21/17 22:54 Dose: 5 ml Saccharomyces Boulardii (Florastor) 250 mg PO DAILY [facility] Last Admin: 07/22/17 08:43 Dose: 250 mg Senna (Senokot) 2 tab PO HSPRN PRN PRN Reason: Constipation Sodium Chloride ([place] Nasal [place] 0.65%) 0 ml EA NARE QIDPRN PRN PRN Reason: Nasal Congestion Trazodone HCl (Desyrel) 100 mg PO [facility] Last Admin: 07/21/17 20:51 Dose: 100 mg
[2017-07-22] MEDS: Phenergan/Codeine 10-6.25mg/5ml UDCUP PO PRN (10:14)
--- NOTE | 2017-07-22 11:34 | DIS ---
PRIMARY CARE PHYSICIAN: [facility] call admission. DATE OF ADMISSION: 07/16/2017 DATE OF DISCHARGE: 07/22/2017 DISCHARGE DISPOSITION: Home. PRIMARY DISCHARGE DIAGNOSES: 1. Acute respiratory failure with hypoxia, improved. 2. Lactic acidosis. 3. Oral thrush. 4. Community-acquired bacterial pneumonia. 5. Sepsis with acute organ dysfunction. 6. Pulmonary nodules suspected. SECONDARY DISCHARGE DIAGNOSES: Hypertension, dyslipidemia, COPD, bipolar disorder, anemia, normocyti c, normochromic. PRIMARY PROCEDURE/OPERATION: None. RADIOLOGICAL INVESTIGATION: Chest x-ray on admission showed pneumonia, right lung nodule. SIGNIFICANT LABS: WBC 7.8, hemoglobin 10.1, platelets 346. Sodium 134, potassium 3.3, BUN 13, creat inine 0.66, calcium 8.4, lactic acid 3.0. Urinalysis normal. Blood culture negative, influenza nega tive. Urine culture negative. DISCHARGE MEDICATIONS: Amlodipine 10 mg p.o. daily, aspirin 325 mg p.o. daily, Lipitor 20 mg p.o. at bedtime, Coreg 3.125 mg p.o. b.i.d., Omnicef 300 mg p.o. twice daily for 10 days, Lomotil b.i.d. p.r .n., Depakote ER 1000 mg p.o. at bedtime, Pepcid 20 mg p.o. b.i.d., Diflucan 100 mg p.o. daily for 7 days, Mucinex 600 mg twice daily for 10 days, [place] 10 one tablet q.4h. p.r.n., prednisone 40 mg p.o. daily for 3 days, then 20 mg p.o. daily for 3 days, then 10 mg p.o. daily for 3 days, and then stop, trazodone 100 mg p.o. at bedtime. CONTRAINDICATIONS: None. CODE STATUS: Full code. INPATIENT CONSULTANTS: Dr. Abrams was following while in hospital. TEST RESULTS PENDING ON DISCHARGE: None. ALLERGIES: TRAMADOL. DISCHARGE PLAN: Post hospital, the patient will follow up with Dr. Abrams in 2-3 weeks. HOSPITAL COURSE: A 66-year-old female who was admitted by me on 07/16/2017 Please see my HPI for fur ther details. This patient recently suffered from influenza and subsequently she was having pneumoni a symptoms. She was having lower respiratory symptoms. She was diagnosed with pneumonia based on x- ray. She was also hypoxic respiratory failure on admission. She was meeting sepsis with acute organ dysfunction criteria, she was having lactic acidosis. This admission her influenza screen was negative. We continued her treatment with cefepime and Levaq uin while in hospital. Oxygen was provided to maintain saturation above 92%. We also provided couns eling to avoid smoking. This patient had some suspected nodule in the right lung and that is why we consulted Dr. Abrams and Ramos Abrams recommended outpatient repeat imaging. This patient was persistently having lactic acidosis , but she clinically significantly improved. She was on room air. She was afebrile. Her cultures r emained negative, so this lactic acid is not coming from sepsis. Her leukocytosis with bandemia reso lved. This patient is clinically doing very well. She was not requiring any oxygen upon discharge. On discharge, we changed to tapering doses of prednisone and oral antibiotic as above and all new me dication prescriptions sent to her pharmacy. While in hospital, we found that she had oral thrush an d that is why we prescribed Diflucan as well. Her abnormal electrolytes was corrected while in the h ospital as well. Overall, this patient is medically stable for discharge. The patient cleared for discharge by pulmon gita group as well. The patient is seen and examined at bedside today. Please see my progress note from today for furthe r details.
[2017-07-22 12:00] VITALS: BP 135/80; TEMP 98.1
== END 2017-07-22 12:47 | disposition home or self-care (01) | DRG 871 ==
LOC: ERS 05:51 → ERHOLD 07:30 → 2NO 14:46 → T4-B 07-17 18:50
PROVIDERS: ADMIT Internal Medicine; ATTEND Internal Medicine
DX: A41.9 Sepsis, unspecified organism (principal); J96.01 Acute respiratory failure with hypoxia; E87.2 Acidosis; J15.9 Unspecified bacterial pneumonia; B37.0 Candidal stomatitis; J44.0 Chronic obstructive pulmonary disease with (acute) lower respiratory infection; J44.1 Chronic obstructive pulmonary disease with (acute) exacerbation; R65.20 Severe sepsis without septic shock; R91.1 Solitary pulmonary nodule; I10 Essential (primary) hypertension; E78.5 Hyperlipidemia, unspecified; D64.9 Anemia, unspecified; F31.9 Bipolar disorder, unspecified; F17.210 Nicotine dependence, cigarettes, uncomplicated; Z86.73 Personal history of transient ischemic attack (TIA), and cerebral infarction without residual deficits; F41.9 Anxiety disorder, unspecified; E87.70 Fluid overload, unspecified
CPT/HCPCS: 36415; 71045; 80048; 80053; 81001; 82805; 83605; 83735; 84100; 85025; 87040; 87086; 87804; 94644; 96361; 96365; 96374; 96375; 99406; A4216; J0696; J1100; J1650; J1940; J1956; J2405; J2920; J3370; J3475; J7050; J7506; J7611; J7620; Q0162

== ENCOUNTER 2017-07-26 13:39 | Inpatient (IN) | payer MEDICARE ==
[~2017-07-26 13:39] MED LIST: ISOVUE-370 76%-LOCM 1 ML ONE
[2017-07-26] MEDS ORDERED: methylPREDNISolone Sod Succ/PF 125 MG/2 ML VIAL ONE (14:02)
[2017-07-26 14:46] LABS: Hemoglobin 12.8 g/dL (12.0-16.0); Mean Corpuscular HGB CONC 34.2 g/dL (32.0-36.0); Mean Corpuscular Hemoglobin 31.2 pg (27.0-31.0); Mean Corpuscular Volume 91.4 fl (81.0-99.0); Platelet Count 424 thou/uL (130-400); RBC Distribution Width 13.8 % (11.5-14.5); White Blood Cell (WBC) Count 10.2 thou/uL (4.8-10.8)
[2017-07-26 14:53] LABS: ALT (SGPT) 8 U/L (8-55); AST (SGOT) 11 U/L (5-34); Albumin 3.9 g/dL (3.4-4.8); Alkaline Phosphatase 68 U/L (40-150); Anion Gap 14 mmol/L (10-20); BUN (Urea Nitrogen) 13 mg/dL (9.8-20.1); Bilirubin, Total 0.6 mg/dL (0.2-1.2); CK (CPK) 23 U/L (29-168); Calc. Creatinine Clearance 0 mL/min (70-130); Calcium 9.4 mg/dL (7.8-10.44); Carbon Dioxide 25 mmol/L (23-31); Chloride 98 mmol/L (98-107); Estimated GFR-MDRD 70; Globulin 3.1 g/dL (2.4-3.5); Glucose 106 mg/dL (80-115); Lipase 11 U/L (8-78); Potassium 4.5 mmol/L (3.5-5.1); Sodium 132 mmol/L (136-145)
[2017-07-26 14:57] LABS: CKMB 0.5 ng/mL (0-6.6); Troponin I Less than 0.010 ng/mL (< 0.028)
--- NOTE | 2017-07-26 14:59 | RAD ---
CHEST 1 VIEW: Date: 07/26/17 HISTORY: 66-year-old female with dyspnea and shortness of breath, with chest pain. COMPARISON: 07/16/17. FINDINGS: The previously noted left lower lobe pneumonia has considerably improved with some minimal persistent linear and stranding changes. Again noted is a spiculated mass in the right mid lower lung zone. No other new process. IMPRESSION: Marked improvement/near total resolution of the previously noted parenchymal changes in the left lowe r lobe. Stable right lung mass. POS: CASSIA
[2017-07-26 15:02] LABS: Bilirubin Negative (Negative); Blood, Urine Negative (Negative); Clarity CLEAR (Clear); Glucose, Urine (Dipstick) Negative (Negative); Leukocyte Negative (Negative); Nitrite Negative (Negative); Protein, Urine (Dipstick) Negative (Neg-Trace); Specific Gravity, Urine 1.015 (1.002-1.036); pH, Urine 7.5 (5.0-9.0)
[2017-07-26 15:03] LABS: Band 3 % (5-11); Lymphocytes 12 % (21-51); MDiff Complete? YES; Monocytes 11 % (0-10); Neutrophil 73 % (42-75); PLT Morphology Comment Appears Increased; Polychromasia SLIGHT = 2-3 cells (100X) (0-2/hpf); Reactive Lymphocytes 1 % (0-10)
--- NOTE | 2017-07-26 15:41 | CT ---
CHEST CT ANGIOGRAM INCLUDING 3D RENDERIN07/26/17 HISTORY: 66-year-old female with dyspnea, shortness of breath, weakness and chest pain for several days. There is evidence for an acute pulmonary embolism in two subsegment branches of the left lower lobe. There is a stable lung cancer in the right mid lung zone, probably anterior upper right lower lobe. There is some patchy parenchymal change in the left base consistent with some mild pneumonitis or sub segmental atelectasis. Very small focus of patchy parenchymal change in the upper aspect of the right lower lobe. Bilateral chronic emphysema changes. No evidence for aortic aneurysm or dissection. IMPRESSION: Acute subsegment branch pulmonary embolism in the left lower lobe. Stable right lung cancer. Stable chronic lung changes. Very minimal patchy parenchymal changes in the left lower lobe and right mid zachariah ng zone in the superior aspect of the lower lobe. Possibly small patches of pneumonitis or subsegment al atelectasis. Stable appearing emphysema and chronic lung changes. Findings were discussed with Dr. Powell in the ER at 3:30 p.m. Code CR POS: CASSIA
[2017-07-26] MEDS ORDERED: Enoxaparin Sodium 60 MG/0.6 ML SYRINGE ONE (15:43)
[2017-07-26] MEDS ORDERED: Ondansetron HCl/PF 4 MG/2 ML Vial IVP PRN (17:27)
[2017-07-26] MEDS ORDERED: Ondansetron ODT 4 MG TAB SL PRN (17:27)
[2017-07-26] MEDS ORDERED: Sodium Chloride 0.9% 1,000 ML IV SCH (17:27)
[2017-07-26 17:52] VITALS: BMI 19.0
[2017-07-26 17:54] LABS: Troponin I Less than 0.010 ng/mL (< 0.028)
[2017-07-26] MEDS ORDERED: Mag-Al 1200 mg/1200 mg/30 ML UDCUP PO PRN (18:53)
[2017-07-26] MEDS ORDERED: Bisacodyl 5 MG TAB PO PRN (18:53)
[2017-07-26] MEDS ORDERED: Nitroglycerin 0.4 MG TAB (25 Tab Bottle) SL PRN (18:53)
[2017-07-26] MEDS ORDERED: hydrALAZINE 20 MG/ML VIAL SLOW IVP PRN (18:53)
[2017-07-26] MEDS ORDERED: diphenhydrAMINE 25 MG CAP PO PRN (18:53)
[2017-07-26] MEDS ORDERED: Acetaminophen 325 MG TAB PO PRN ×2 (18:53)
[2017-07-26] MEDS: Enoxaparin Sodium 60 MG/0.6 ML SYRINGE SC SCH (20:22)
[2017-07-26] MEDS: guaiFENesin ER 600 MG TAB PO SCH (20:23)
[2017-07-26] MEDS: Carvedilol 3.125 MG TAB PO SCH (20:23)
[2017-07-26] MEDS: Cefdinir 300 MG CAP PO SCH (20:23)
[2017-07-26] MEDS: Diphenoxylate HCl/Atropine Tablet PO SCH (20:23)
[2017-07-26] MEDS: Atorvastatin Calcium 20 MG TAB PO SCH (20:23)
[2017-07-26] MEDS: traZODone HCl 50 MG TAB PO SCH (20:23)
[2017-07-26] MEDS: HYDROcodone/Acetaminophen 10/325 mg Tablet PO PRN (20:24)
--- NOTE | 2017-07-26 20:28 | HP ---
PRIMARY CARE PHYSICIAN: Cosme. REASON FOR ADMISSION: Shortness of breath, pulmonary embolism. HISTORY OF PRESENT ILLNESS: Mrs. Mayra Peterson is a 66-year-old female with a medical history of h ypertension, hyperlipidemia, COPD, bipolar disorder who was recently admitted and discharged from [facility] approximately 4 days ago at which time she experienced community-acquired bacterial pneumon ia. At that time, she was treated initially with IV antibiotics and subsequently discharged home wit h Omnicef. She is currently still taking her Omnicef as well as Diflucan for oral thrush. She state s that on the day of her discharge, she felt well; however, subsequently thereafter, she felt worse, at first further worsening dyspnea on exertion. She states that she has a nonproductive cough. No s ick contacts, or fevers have been reported. No chest pain. She states that the degree of shortness of breath worsened dramatically and hence she came to the emergency room for admission. While here, the patient was noted to be tachypneic. She was given DuoNeb treatments as well as IV steroids in e emergency room and she improved dramatically. Of note, on recent imaging of the patient's chest in cluding CTAs and x-rays that have been pulmonary nodule suspected in the right hemithorax, which is g oing to be worked up as an outpatient. While here, the patient had a CTA of the chest in the emergen cy room which revealed acute subsegmental branch pulmonary embolisms in the left lower lobe. She was subsequently given one dose of weight-based Lovenox and admitted to the medical floor. Currently, s he is resting comfortably in no acute distress. She has been admitted for further evaluation for pul monary embolism as well as the lung nodules/masses which have been identified on lung imaging. PAST MEDICAL HISTORY: 1. Hypertension. 2. Dyslipidemia. 3. Chronic obstructive pulmonary disease. 4. Bipolar disorder. 5. History of recent bacterial pneumonia. PAST SURGICAL HISTORY: 1. Hysterectomy. 2. Left total hip replacement. 3. Tonsillectomy. 4. Gastric ulcer surgery. CODE STATUS: FULL CODE. SOCIAL HISTORY: The patient smokes approximately half pack per day, drinks socially. Denies illicit drug use. CURRENT MEDICATIONS: 1. Prednisone 40 mg p.o. daily. 2. Mucinex 600 mg p.o. q.12 hours 2. [place] 1-2 tablets q.4 hours p.r.n. 3. Diflucan 100 mg p.o. daily. 4. Pepcid 10 mg p.o. b.i.d. 5. Depakote 1000 mg p.o. at bedtime. 6. Lomotil. 7. Omnicef. 8. Coreg 3.125 mg p.o. b.i.d. 9. Lipitor 20 mg p.o. at bedtime. 10. Aspirin 325 mg p.o. daily. 11. Norvasc 10 mg daily. 12. Trazodone 100 mg p.o. at bedtime. ALLERGIES: TRAMADOL. FAMILY HISTORY: Significant for hypertension in mother and COPD and emphysema in her father. REVIEW OF SYSTEMS: The following complete review of systems was negative, unless otherwise mentioned in the HPI or below : Constitutional: Weight loss or gain, sense of well-being, ability to conduct usual activities, exerc ise tolerance. Skin/Breast: Rash, itching, changes in hair growth or loss, nail changes, breast lumps, tenderness, swelling, nipple discharge. Eyes: Vision, double vision, tearing, blind spots, pain. ENT/Mouth: Headaches (location, time of onset, duration, precipitating factors), vertigo, lightheade dness, injury. Vision, double vision, tearing, blind spots, pain, nose bleeding, colds, obstruction, discharge, dental difficulties, gingival bleeding, dentures, neck stiffness, pain, tenderness, masses in thyroid or other areas. Cardiovascular: Precordial pain, substernal distress, palpitations, syncope, dyspnea on exertion, or thopnea, nocturnal paroxysmal dyspnea, edema, cyanosis, hypertension, heart murmurs, varicosities, ph lebitis, claudication. Respiratory: Pain, shortness of breath, wheezing, stridor, cough, hemoptysis, fever or night sweats. Gastrointestinal: Poor appetite, dysphagia, indigestion, abdominal pain, heartburn, eructation, naus ea, vomiting, hematemesis, jaundice, constipation, or diarrhea, abnormal stools (brit[place]-colored, tarry, bloody, greasy, foul smelling), flatulence, hemorrhoids, recent changes in bowel habits. Genitourinary: Urgency, frequency, dysuria, nocturia, hematuria, polyuria, oliguria, unusual (or bakari nge in) color of urine, stones, hesitancy, change in size of stream, dribbling, acute retention or in continence, libido, potency. Musculoskeletal: Pain, swelling, redness or heat of muscles or joints, limitation, of motion, muscul ar weakness, atrophy, cramps. Neurologic/Psychiatric: Convulsions, paralyses, tremor, incoordination, parasthesias, difficulties w ith memory of speech, sensory or motor disturbances, or muscular coordination (ataxia, tremor), emoti onal problems, anxiety, depression, previous psychiatric care, unusual perceptions, hallucinations. Allergy/Immunologic: Skin rash, anemia, bleeding tendency, polydipsia, polyuria, intolerance to heat or cold. PHYSICAL EXAMINATION: CONSTITUTIONAL/VITAL SIGNS: Blood pressure is 144/60, O2 saturation 94% on room air, respirations 22 , pulse is 94, temperature is 98.6. She is in no acute distress, nontoxic appearing. EYES: Pupils are round and reactive to light and accommodation. No pale conjunctivae. ENT/MOUTH: Moist oral mucosa. There is some evidence of a resolving thrush. RESPIRATORY: Equal chest wall expansion. She has minimal wheezing. No accessory muscle use. CARDIOVASCULAR: S1, S2 present. GASTROINTESTINAL: Soft, nontender, nondistended. Bowel sounds are present in all 4 quadrants. MUSCULOSKELETAL: Good range of motion in all 4 extremities. No clubbing, no cyanosis. LYMPHATIC: No swollen painful cervical or axillary nodes. NEUROLOGIC: No ptosis, no facial asymmetry, no tongue deviation or jaw protrusion, no focal deficits . PSYCHIATRIC: She is awake, alert to time, place, person, answers appropriately. SKIN: Normal skin turgor. LABORATORY AND X-RAY FINDINGS: Taken in emergency room and reviewed by me showed WBC 10.2, hemoglobi n 12.8, hematocrit 37.4, platelet count is 424,000. Chemistry shows sodium 132, potassium 4.5, chlor nicolette 98, carbon dioxide 25, anion gap 14, BUN 13, creatinine 0.82, glucose 106. Lactic acid 1.4, AST and ALT of 11 and 8. CK is 23. Two sets of troponins are negative. BNP is 35.8, lipase is 11. Uri ne is within normal limits. Chest x-ray done in the emergency room revealed parenchymal changes in the left lower lobe. There is a stable right lung mass. CTA of the chest revealed acute subsegmental branch pulmonary embolism, left lower lobe. There was a stable right lung cancer with stable chronic lung changes, no evidence of dissection or aneurysm. EKG reveals sinus rhythm. ASSESSMENT AND PLAN: Mrs. Mayra Peterson is a 66-year-old female with a past medical history of hyp ertension, hyperlipidemia, chronic obstructive pulmonary disease, bipolar disorder as well as recentl y diagnosed pneumonia who presents to the emergency room with shortness of breath. 1. Shortness of breath. At this time, the patient will be admitted to the medical floor. Her short ness of breath is most likely from a pulmonary embolism, which has been evidenced CTA. The pulmonary embolism may be idiopathic; however, given the fact there are findings on radiograph and right a hem ithorax that have not been worked up. The patient may have an underlying malignancy that has not bee n diagnosed thus far. If these 2 are correlated, the patient will need to be on anticoagulation inde finitely. We will consult Pulmonary for further assistance. The patient will be placed on Lovenox a t this time. We will hold off on any novel anticoagulation i.e. Eliquis or Xarelto just in case a pr ocedure needs to be performed, a CT guided biopsy or a bronchoscopy. 2. Resume the patient's home medications. 3. Continue with DuoNeb therapy and IV steroids. 4. P.r.n. order set. 5. FULL CODE. 6. Regular diet. 7. I explained all this to the patient at bedside. She is agreeable to the plan of treatment. All questions have been answered. 8. The patient's further hospital course will be dictated by her clinical course while here.
[2017-07-26 22:34] LABS: Troponin I Less than 0.010 ng/mL (< 0.028)
[2017-07-27] MEDS: Diabetic Tussin 200 MG/10 ML UDCUP PO PRN ×3 (00:06→23:55)
[2017-07-27] MEDS: HYDROcodone/Acetaminophen 10/325 mg Tablet PO PRN ×6 (00:09→21:03)
[2017-07-27 04:11] LABS: #Lymphocytes 0.8 thou/uL (1.20-3.40); #Monocytes 0.6 thou/uL (0.11-0.59); #Neutrophils 9.6 thou/uL (1.40-6.50); %Eosinophils 0.4 % (0.0-10.0); %Lymphocytes 7.4 % (21.0-51.0); %Monocytes 5.4 % (0.0-10.0); %Neutrophils 86.9 % (42.0-75.0); Hemoglobin 10.4 g/dL (12.0-16.0); INR-International Normal Ratio 1.2; Mean Corpuscular HGB CONC 32.2 g/dL (32.0-36.0); Mean Corpuscular Hemoglobin 29.4 pg (27.0-31.0); Mean Corpuscular Volume 91.3 fl (81.0-99.0); Platelet Count 367 thou/uL (130-400); Prothrombin Time 14.9 SEC (12.0-14.7); RBC Distribution Width 13.6 % (11.5-14.5); Red Blood Cell (RBC) Count 3.52 mill/uL (4.20-5.40)
[2017-07-27 04:23] LABS: Anion Gap 15 mmol/L (10-20); BUN (Urea Nitrogen) 14 mg/dL (9.8-20.1); Calc. Creatinine Clearance 58 mL/min (70-130); Calcium 9.1 mg/dL (7.8-10.44); Carbon Dioxide 22 mmol/L (23-31); Chloride 96 mmol/L (98-107); Estimated GFR-MDRD 76; Glucose 175 mg/dL (80-115); Potassium 4.4 mmol/L (3.5-5.1); Sodium 129 mmol/L (136-145)
[2017-07-27] MEDS: Amlodipine 10 MG TAB PO SCH (08:25)
[2017-07-27] MEDS: Aspirin 325 mg Enteric Coated Tablet PO SCH (08:25)
[2017-07-27] MEDS: Fluconazole 100 MG TAB PO SCH (08:26)
[2017-07-27] MEDS: Carvedilol 3.125 MG TAB PO SCH ×2 (08:26→20:59)
[2017-07-27] MEDS: Diphenoxylate HCl/Atropine Tablet PO SCH ×2 (08:26→20:57)
[2017-07-27] MEDS: Cefdinir 300 MG CAP PO SCH ×2 (08:26→20:58)
[2017-07-27] MEDS: guaiFENesin ER 600 MG TAB PO SCH ×2 (08:26→20:58)
[2017-07-27] MEDS: Enoxaparin Sodium 60 MG/0.6 ML SYRINGE SC SCH ×2 (10:21→21:02)
--- NOTE | 2017-07-27 10:48 | PDOC.PN ---
- Subjective Encounter Start Date: 07/27/17 Encounter Start Time: 10:47 Patient seen at bedside. Has been ambulating well. Less SOB, no C/P, with cough - Objective Resuscitation Status: Resuscitation Status FULL:Full Resuscitation MAR Reviewed: Yes Vital Signs & Weight: Vital Signs (12 hours) Temp Pulse Resp BP Pulse Ox 07/27/17 08:00 98.1 F 76 16 147/75 H 97 07/27/17 03:47 98.0 F 71 16 125/63 94 L 07/26/17 23:04 97.6 F 66 20 125/69 96 Weight Weight 111 lb I&O: 07/26/17 07/27/17 07/28/17 06:59 06:59 06:59 Intake Total 720 Balance 720 Result Diagrams: 07/27/17 03:46 07/27/17 03:46 Phys Exam - Physical Examination Constitutional: NAD HEENT: moist MMs Neck: no JVD mild wheezing bilaterally Cardiovascular: RRR Gastrointestinal: soft Musculoskeletal: pulses present Neurological: moves all 4 limbs Psychiatric: A&O x 3 Skin: normal turgor Dx/Plan (1) Pulmonary embolism Code(s): I26.99 - OTHER PULMONARY EMBOLISM WITHOUT ACUTE COR PULMONALE Status : Acute (2) COPD (chronic obstructive pulmonary disease) Status: Chronic Qualifiers: (3) HLD (hyperlipidemia) Code(s): E78.5 - HYPERLIPIDEMIA, UNSPECIFIED Status: Chronic Qualifiers: (4) HTN (hypertension) Code(s): I10 - ESSENTIAL (PRIMARY) HYPERTENSION Status: Chronic Qualifiers: (5) Pulmonary nodule, right Code(s): R91.1 - SOLITARY PULMONARY NODULE Status: Chronic - Plan cont current plan of care, respiratory therapy, out of bed/ambulate * Continue with IV Steroids. * Continue with Lovenox ( hold of on starting NOAC or coumadin in case intervention is needed for nodules seen on right lung, bronch, CT-Guided biopsy , etc) * Duonebs * Await further pulmonary input.
--- NOTE | 2017-07-27 15:53 | ULT ---
BILATERAL LOWER EXTREMITY VENOUS DUPLEX ULTRASOUND INCLUDING COLOR AND SPECTRAL DOPPLER IMAGING: Date: 07/27/17 HISTORY: 66-year-old female with known history of PE. FINDINGS: Exam performed from groin to ankle bilaterally with visualization of the greater saphenous, common fe moral, superficial femoral, profunda femoral, popliteal, trifurcation, and posterior tibial vein parker ons. There is phasic flow at all levels with normal compressibility and normal augmentation. No intra luminal thrombus. IMPRESSION: No evidence for deep venous thrombosis. POS: CASSIA
[2017-07-27] MEDS: traZODone HCl 50 MG TAB PO SCH (20:58)
[2017-07-27] MEDS: Atorvastatin Calcium 20 MG TAB PO SCH (20:58)
--- NOTE | 2017-07-27 21:06 | CON ---
DATE OF CONSULTATION: 07/27/2017 Kristen was just discharged from the hospital. She sees Dr. Abrams who said she got short of breath w ith chest pain, no fever, no chills, no cough. She quit smoking about a week ago. CAT scan showed s ubsegmental emboli in single vessel and the previously described right lung nodules. She was admitte d to the hospital. Extensive history is outlined by Dr. Abrams and most recently states that she has longstanding history of COPD and tobacco abuse. PAST MEDICAL HISTORY: Previous CVA, anxiety, and depression. PAST SURGICAL HISTORY: Hysterectomy, hip, tonsils, and gastric surgery. HOME MEDICATIONS: Includes prednisone, guaifenesin, Diflucan, Pepcid, Depakote 1000 mg, Lipitor, Nor vasc, and trazodone. ALLERGIES: TRAMADOL. REVIEW OF SYSTEMS: Ten point negative. PHYSICAL EXAMINATION: VITAL SIGNS: Sats are 92 on room air, respiration 16, temperature 98, blood pressure 100/47. GENERAL: She appears to be in no distress. CHEST: No wheezing or crackles. CARDIAC: Normal S1, S2. No gallops. ABDOMEN: Soft. No masses. LABORATORY DATA: White count 11,000, H and H is 10 and 30, platelet count normal, electrolytes are n ormal. Sodium is 129. Chest x-ray was normal except for the right lung nodule. CT chest as noted s howed subsegmental pulmonary emboli in the left lower lobe and some nonspecific infiltrates. IMPRESSION: Chronic obstructive pulmonary disease exacerbation, bronchitis, right lung nodule, tobac co abuse, hyponatremia. I doubt she has got significant pulmonary emboli. PLAN: I will order an ultrasound of the leg. If this is negative, I would consider discontinuing th e Lovenox; otherwise, continue neb treatments, antibiotics, steroids. We will notify Dr. Abrams in e morning.
[2017-07-28] MEDS: HYDROcodone/Acetaminophen 10/325 mg Tablet PO PRN ×5 (01:26→21:17)
--- NOTE | 2017-07-28 08:43 | PDOC.PN ---
- Subjective Encounter Start Date: 07/28/17 Encounter Start Time: 09:30 Subjective: Patient with persistent cough. Asking for other cough medicine. SOB improve -: Ambulated to gift shop without sig worsening SOB. - Objective Resuscitation Status: Resuscitation Status FULL:Full Resuscitation MAR Reviewed: Yes Vital Signs & Weight: Vital Signs (12 hours) Temp Pulse Resp BP Pulse Ox 07/28/17 07:53 97.5 F L 66 18 156/77 H 99 Weight Weight 111 lb I&O: 07/27/17 07/28/17 07/29/17 06:59 06:59 06:59 Intake Total 720 1620 Balance 720 1620 Result Diagrams: 07/27/17 03:46 07/27/17 03:46 Phys Exam - Physical Examination Constitutional: NAD HEENT: moist MMs Respiratory: no wheezing, no rhonchi scattered crackles, good air movement throughout Cardiovascular: RRR Gastrointestinal: soft, positive bowel sounds Musculoskeletal: no edema Neurological: non-focal, moves all 4 limbs Psychiatric: normal affect, A&O x 3 Dx/Plan (1) COPD exacerbation Code(s): J44.1 - CHRONIC OBSTRUCTIVE PULMONARY DISEASE W (ACUTE) EXACERBATION Status: Acute Comment: nebs, steroids, abx (2) Pulmonary embolism Code(s): I26.99 - OTHER PULMONARY EMBOLISM WITHOUT ACUTE COR PULMONALE Status : Acute Comment: subsegmental, pulmonology suspects possibility of no acutual PE, LE US neg for DVT, will await Dr. Abrams's decision on continuing Lovenox or not. (3) Acute respiratory failure with hypoxia Code(s): J96.01 - ACUTE RESPIRATORY FAILURE WITH HYPOXIA Status: Acute Comment: doing well on RA currently (4) HLD (hyperlipidemia) Code(s): E78.5 - HYPERLIPIDEMIA, UNSPECIFIED Status: Chronic Qualifiers: (5) HTN (hypertension) Code(s): I10 - ESSENTIAL (PRIMARY) HYPERTENSION Status: Chronic Qualifiers: (6) Pulmonary nodule, right Code(s): R91.1 - SOLITARY PULMONARY NODULE Status: Chronic - Plan cont current plan of care, continue antibiotics, out of bed/ambulate, DVT proph w/lovenox Home when ok with pulmonology * . - Discharge Day Encounter end time: 09:45
[2017-07-28] MEDS: Enoxaparin Sodium 60 MG/0.6 ML SYRINGE SC SCH (08:49)
[2017-07-28] MEDS: guaiFENesin ER 600 MG TAB PO SCH ×2 (08:49→21:19)
[2017-07-28] MEDS: Fluconazole 100 MG TAB PO SCH (08:49)
[2017-07-28] MEDS: Carvedilol 3.125 MG TAB PO SCH ×2 (08:49→21:20)
[2017-07-28] MEDS: Diphenoxylate HCl/Atropine Tablet PO SCH ×2 (08:49→21:20)
[2017-07-28] MEDS: Amlodipine 10 MG TAB PO SCH (08:49)
[2017-07-28] MEDS: Cefdinir 300 MG CAP PO SCH ×2 (08:49→21:19)
--- NOTE | 2017-07-28 13:05 | PRG ---
DATE OF SERVICE: 07/28/2017 SUBJECTIVE: Ms. Mayra Peterson's events and CT and venogram have been reviewed. I have reviewed he r CT angiogram. I suspect that is a real thrombus, although it is unclear whether this is embolic or an in situ throm bosis associated with a recent infection. She appears to be clinically stable. I suspect COPD exacerbations why she came back to the hospital. OBJECTIVE: VITAL SIGNS: She is afebrile. Heart rate is 66, respiratory rate is 18 and blood pressure 156/77. LUNGS: Distant and clear. She has slightly prolonged expiratory phase. PLAN: Start her on Xarelto. We will probably treat her for 3 months. She does not have coverage fo r prescription drugs, so I will have to get her some forms to fill out, so she can get two more month s other than the free month that is initially offered.
[2017-07-28] MEDS: Benzonatate 100 MG CAP PO SCH ×2 (14:07→21:19)
[2017-07-28] MEDS: traZODone HCl 50 MG TAB PO SCH (21:18)
[2017-07-28] MEDS: Atorvastatin Calcium 20 MG TAB PO SCH (21:20)
[2017-07-29] MEDS: HYDROcodone/Acetaminophen 10/325 mg Tablet PO PRN ×4 (04:06→17:47)
[2017-07-29 05:11] LABS: Hemoglobin 11.1 g/dL (12.0-16.0); Platelet Count 453 thou/uL (130-400)
[2017-07-29] MEDS: Rivaroxaban 10 MG TAB PO SCH (05:38)
[2017-07-29] MEDS: predniSONE 20 MG TAB PO SCH (08:10)
[2017-07-29] MEDS: Diphenoxylate HCl/Atropine Tablet PO SCH ×2 (08:11→21:28)
[2017-07-29] MEDS: Fluconazole 100 MG TAB PO SCH (08:12)
[2017-07-29] MEDS: Benzonatate 100 MG CAP PO SCH ×3 (08:12→21:27)
[2017-07-29] MEDS: Cefdinir 300 MG CAP PO SCH ×2 (08:13→21:28)
[2017-07-29] MEDS: Amlodipine 10 MG TAB PO SCH (08:13)
[2017-07-29] MEDS: Carvedilol 3.125 MG TAB PO SCH ×2 (08:13→21:28)
[2017-07-29] MEDS: guaiFENesin ER 600 MG TAB PO SCH ×2 (08:14→21:28)
[2017-07-29] MEDS: Aspirin 325 mg Enteric Coated Tablet PO SCH (08:14)
--- NOTE | 2017-07-29 12:52 | PRG ---
DATE OF SERVICE: 07/29/2017 Mayra Peterson said she is feeling close to her baseline. PHYSICAL EXAMINATION: VITAL SIGNS: She is afebrile, heart rate 84, blood pressure 150/78, respiratory rate 16. Oximetry i s 93 on room air. LUNGS: Lungs are clear today. HEART: Regular rhythm. ABDOMEN: Abdomen is soft. LABORATORY DATA: There is no new lab. IMPRESSION: 1. Chronic obstructive pulmonary disease exacerbation. 2. Pulmonary nodule, possibly malignant. 3. Thromboembolic disease ?. She only had a small subsegmental defect, but given the lung mass that may be malignant I would be inclined to assume that this is thromboembolic event. She will be antic oagulated for a minimum of 3 months. We will have to do pulmonary function tests as an outpatient to see if she is a candidate for even a workup or biopsy of this. We will plan on repeating a radiograph in a month. I have given her prescription for Xarelto 20 mg a day. She has a discount coupon from the [employer].
--- NOTE | 2017-07-29 14:08 | PDOC.PN ---
- Subjective Encounter Start Date: 07/29/17 Encounter Start Time: 13:30 Patient seen and examined. No new complaints. No overnight events. SOB improving. - Objective Resuscitation Status: Resuscitation Status FULL:Full Resuscitation MAR Reviewed: Yes Vital Signs & Weight: Vital Signs (12 hours) Temp Pulse Resp BP BP Pulse Ox 07/29/17 08:35 98.6 F 84 16 150/78 H 93 L 07/29/17 08:13 84 150/78 H 07/29/17 08:00 98.6 F 84 16 93 L 07/29/17 04:00 98.2 F 66 18 124/76 94 L Weight Weight 111 lb I&O: 07/28/17 07/29/17 07/30/17 06:59 06:59 06:59 Intake Total 1620 2500 Balance 1620 2500 Result Diagrams: 07/29/17 04:41 07/29/17 04:41 Phys Exam - Physical Examination Constitutional: NAD Respiratory: no wheezing, no rhonchi Cardiovascular: RRR, no rub Gastrointestinal: soft, non-tender, positive bowel sounds Musculoskeletal: no edema Neurological: moves all 4 limbs Dx/Plan - Plan IMPRESSION: 1. Pulmonary Embolism 2. COPD Exacerbation 3. Recent admission for Sepsis/Pneumonia with COPD Exacerbation 4. HTN 5. HLD/Pulm nodule/Bipolar disorder PLAN: * On Xarelto * Cont Omnicef with Prednisone * Pulm following * Cont to monitor * DC in AM if stable * CM working on outpt Xarelto Review of Systems - Review of Systems Respiratory: negative: Cough, Dry, Shortness of Breath, Hemoptysis, SOB with Excertion, Pleuritic Pain, Sputum, Wheezing Cardiovascular: negative: chest pain, palpitations, orthopnea, paroxysmal nocturnal dyspnea, edema, light headedness Gastrointestinal: negative: Nausea, Vomiting, Abdominal Pain, Diarrhea, Constipation, Melena, Hematochezia - Medications/Allergies Allergies/Adverse Reactions: Allergies Allergy/AdvReac Type Severity Reaction Status Date / Time tramadol Allergy Verified 07/16/17 14:49 Medications: Current Medications Acetaminophen (Tylenol) 650 mg PO Q4H PRN PRN Reason: Headache/Fever or Mild Pain Hydrocodone Bitart/Acetaminophen ([place] 10/325) 2 tab PO Q4H PRN PRN Reason: Pain Last Admin: 07/29/17 12:52 Dose: 2 tab Al Hydroxide/Mg Hydroxide (Maalox) 30 ml PO Q6H PRN PRN Reason: Heartburn or Indigestion Albuterol/Ipratropium (Duoneb) 3 ml NEB [id number] PRN PRN Reason: SOB &/or Wheezing Amlodipine Besylate (Norvasc) 10 mg PO DAILY [facility] Last Admin: 07/29/17 08:13 Dose: 10 mg Aspirin (Ecotrin) 325 mg PO DAILY [facility] Last Admin: 07/29/17 08:14 Dose: 325 mg Atorvastatin Calcium (Lipitor) 20 mg PO HS [facility] Last Admin: 07/28/17 21:20 Dose: 20 mg Benzonatate (Tessalon) 100 mg PO TID [facility] Last Admin: 07/29/17 08:12 Dose: 100 mg Bisacodyl (Dulcolax) 10 mg PO DAILYPRN PRN PRN Reason: Constipation Carvedilol (Coreg) 3.125 mg PO BID [facility] Last Admin: 07/29/17 08:13 Dose: 3.125 mg Cefdinir (Omnicef) 300 mg PO BID [facility] Last Admin: 07/29/17 08:13 Dose: 300 mg Diphenhydramine HCl (Benadryl) 25 mg PO Q4H PRN PRN Reason: Itching Diphenoxylate HCl/Atropine (Lomotil) 3 tab PO BID [facility] Last Admin: 07/29/17 08:11 Dose: 3 tab Divalproex Sodium (Depakote Er) 1,000 mg PO [facility] Last Admin: 07/28/17 21:19 Dose: 1,000 mg Fluconazole (Diflucan) 100 mg PO DAILY [facility] Last Admin: 07/29/17 08:12 Dose: 100 mg Guaifenesin (Mucinex) 600 mg PO Q12HR [facility] Last Admin: 07/29/17 08:14 Dose: 600 mg Hydralazine HCl (Apresoline) 10 mg SLOW IVP Q4H PRN PRN Reason: Systolic BP > 180 Nitroglycerin (Nitrostat) 0.4 mg SL Q5MIN PRN PRN Reason: Chest Pain Prednisone (Prednisone) 40 mg PO QAM-WM [facility] Last Admin: 07/29/17 08:10 Dose: 40 mg Rivaroxaban (Xarelto) 20 mg PO 0600 [facility] Last Admin: 07/29/17 05:38 Dose: 20 mg Sodium Chloride (Flush - Normal Saline) 10 ml IVF PRN PRN PRN Reason: Saline Flush Last Admin: 07/28/17 08:48 Dose: 10 ml Trazodone HCl (Desyrel) 100 mg PO HS [facility] Last Admin: 07/28/17 21:18 Dose: 100 mg
[2017-07-29] MEDS: traZODone HCl 50 MG TAB PO SCH (21:27)
[2017-07-29] MEDS: Atorvastatin Calcium 20 MG TAB PO SCH (21:28)
[2017-07-30] MEDS: HYDROcodone/Acetaminophen 10/325 mg Tablet PO PRN ×4 (05:30→20:59)
[2017-07-30] MEDS: Rivaroxaban 10 MG TAB PO SCH (05:30)
[2017-07-30 06:08] LABS: Anion Gap 12 mmol/L (10-20); BUN (Urea Nitrogen) 21 mg/dL (9.8-20.1); Calc. Creatinine Clearance 65 mL/min (70-130); Carbon Dioxide 28 mmol/L (23-31); Chloride 99 mmol/L (98-107); Estimated GFR-MDRD 87; Glucose 79 mg/dL (80-115); Potassium 3.5 mmol/L (3.5-5.1); Sodium 135 mmol/L (136-145)
[2017-07-30] MEDS: predniSONE 20 MG TAB PO SCH (08:41)
[2017-07-30] MEDS: Benzonatate 100 MG CAP PO SCH ×3 (08:42→21:00)
[2017-07-30] MEDS: Diphenoxylate HCl/Atropine Tablet PO SCH ×2 (08:42→21:00)
[2017-07-30] MEDS: Carvedilol 3.125 MG TAB PO SCH ×2 (08:42→21:00)
[2017-07-30] MEDS: Aspirin 325 mg Enteric Coated Tablet PO SCH (08:42)
[2017-07-30] MEDS: Amlodipine 10 MG TAB PO SCH (08:42)
[2017-07-30] MEDS: Cefdinir 300 MG CAP PO SCH ×2 (08:42→20:59)
[2017-07-30] MEDS: guaiFENesin ER 600 MG TAB PO SCH ×2 (08:43→20:58)
[2017-07-30] MEDS: Fluconazole 100 MG TAB PO SCH (08:43)
--- NOTE | 2017-07-30 10:14 | PRG ---
DATE OF SERVICE: 07/30/2017 Mayra Peterson says she feels more congested and short of breath this morning. Apparently, she has only been getting p.r.n. neb treatments and she has not been calling for them. I thought she was rec eiving routine scheduled neb treatments. PHYSICAL EXAMINATION: VITAL SIGNS: She is afebrile, heart rate 62, blood pressure 146/76, temperature is 95. LUNGS: Distant. CARDIOVASCULAR: Regular rhythm. ABDOMEN: Soft. IMPRESSION: 1. Chronic obstructive pulmonary disease exacerbation leading to readmission. 2. Thromboembolic disease. There is a possibility this is a false positive scan, but we are anticoa gulating her for now. 3. Lung mass, will be followed with a follow up radiograph in a month. She will need a nebulizer at home. I am hesitant to send her home with her complaining of being more short of breath given that she just recently bounced back after a hospitalization for respiratory is sues.
--- NOTE | 2017-07-30 14:18 | PDOC.PN ---
- Subjective Encounter Start Date: 07/30/17 Encounter Start Time: 14:16 Patient seen and examined. Intermittent SOB with cough +. No overnight events - Objective Resuscitation Status: Resuscitation Status FULL:Full Resuscitation MAR Reviewed: Yes Vital Signs & Weight: Vital Signs (12 hours) Temp Pulse Resp BP BP Pulse Ox 07/30/17 13:39 62 16 95 07/30/17 08:42 62 146/76 H 07/30/17 08:00 98.1 F 62 16 95 07/30/17 07:32 98.1 F 62 16 146/76 H 95 Weight Weight 111 lb I&O: 07/29/17 07/30/17 07/31/17 06:59 06:59 06:59 Intake Total 2500 Balance 2500 Result Diagrams: 07/29/17 04:41 07/30/17 05:04 Phys Exam - Physical Examination Constitutional: NAD Respiratory: no rales Scat wheezing/rhonchi Cardiovascular: RRR, no rub Gastrointestinal: soft, non-tender, positive bowel sounds Musculoskeletal: no edema Neurological: moves all 4 limbs Dx/Plan - Plan DVT proph w/SCDs IMPRESSION: 1. Pulmonary Embolism - on Xarelto 2. COPD Exacerbation 3. Recent admission for Sepsis/Pneumonia with COPD Exacerbation 4. HTN 5. HLD/Pulm nodule/Bipolar disorder PLAN: * On Xarelto * Cont Omnicef with Prednisone * Pulm following * Cont to monitor overnight per Pulmonary * Repeat CXR in 1 month for lung nodule Review of Systems - Review of Systems Cardiovascular: negative: chest pain, palpitations, orthopnea, paroxysmal nocturnal dyspnea, edema, light headedness Gastrointestinal: negative: Nausea, Vomiting, Abdominal Pain, Diarrhea, Constipation, Melena, Hematochezia - Medications/Allergies Allergies/Adverse Reactions: Allergies Allergy/AdvReac Type Severity Reaction Status Date / Time tramadol Allergy Verified 07/16/17 14:49 Medications: Current Medications Acetaminophen (Tylenol) 650 mg PO Q4H PRN PRN Reason: Headache/Fever or Mild Pain Hydrocodone Bitart/Acetaminophen ([place] 10/325) 2 tab PO Q4H PRN PRN Reason: Pain Last Admin: 07/30/17 09:58 Dose: 2 tab Al Hydroxide/Mg Hydroxide (Maalox) 30 ml PO Q6H PRN PRN Reason: Heartburn or Indigestion Albuterol/Ipratropium (Duoneb) 3 ml NEB [id number] [facility] Last Admin: 07/30/17 13:39 Dose: 3 ml Amlodipine Besylate (Norvasc) 10 mg PO DAILY [facility] Last Admin: 07/30/17 08:42 Dose: 10 mg Aspirin (Ecotrin) 325 mg PO DAILY [facility] Last Admin: 07/30/17 08:42 Dose: 325 mg Atorvastatin Calcium (Lipitor) 20 mg PO HS [facility] Last Admin: 07/29/17 21:28 Dose: 20 mg Benzonatate (Tessalon) 100 mg PO TID [facility] Last Admin: 07/30/17 08:42 Dose: 100 mg Bisacodyl (Dulcolax) 10 mg PO DAILYPRN PRN PRN Reason: Constipation Carvedilol (Coreg) 3.125 mg PO BID [facility] Last Admin: 07/30/17 08:42 Dose: 3.125 mg Cefdinir (Omnicef) 300 mg PO BID [facility] Last Admin: 07/30/17 08:42 Dose: 300 mg Diphenhydramine HCl (Benadryl) 25 mg PO Q4H PRN PRN Reason: Itching Diphenoxylate HCl/Atropine (Lomotil) 3 tab PO BID [facility] Last Admin: 07/30/17 08:42 Dose: 3 tab Divalproex Sodium (Depakote Er) 1,000 mg PO [facility] Last Admin: 07/29/17 21:27 Dose: 1,000 mg Fluconazole (Diflucan) 100 mg PO DAILY [facility] Last Admin: 07/30/17 08:43 Dose: 100 mg Guaifenesin (Mucinex) 600 mg PO Q12HR [facility] Last Admin: 07/30/17 08:43 Dose: 600 mg Hydralazine HCl (Apresoline) 10 mg SLOW IVP Q4H PRN PRN Reason: Systolic BP > 180 Nitroglycerin (Nitrostat) 0.4 mg SL Q5MIN PRN PRN Reason: Chest Pain Prednisone (Prednisone) 40 mg PO QAM-WM [facility] Last Admin: 07/30/17 08:41 Dose: 40 mg Rivaroxaban (Xarelto) 20 mg PO 0600 [facility] Last Admin: 07/30/17 05:30 Dose: 20 mg Sodium Chloride (Flush - Normal Saline) 10 ml IVF PRN PRN PRN Reason: Saline Flush Last Admin: 07/28/17 08:48 Dose: 10 ml Trazodone HCl (Desyrel) 100 mg PO HS [facility] Last Admin: 07/29/17 21:27 Dose: 100 mg
[2017-07-30] MEDS: Atorvastatin Calcium 20 MG TAB PO SCH (20:58)
[2017-07-30] MEDS: traZODone HCl 50 MG TAB PO SCH (21:00)
[2017-07-31] MEDS: HYDROcodone/Acetaminophen 10/325 mg Tablet PO PRN ×3 (01:21→10:08)
[2017-07-31 03:59] LABS: Platelet Count 446 thou/uL (130-400)
[2017-07-31] MEDS: Rivaroxaban 10 MG TAB PO SCH (05:51)
[2017-07-31] MEDS: predniSONE 20 MG TAB PO SCH (08:04)
[2017-07-31] MEDS: Aspirin 325 mg Enteric Coated Tablet PO SCH (08:04)
[2017-07-31] MEDS: guaiFENesin ER 600 MG TAB PO SCH (08:04)
[2017-07-31] MEDS: Fluconazole 100 MG TAB PO SCH (08:04)
[2017-07-31] MEDS: Benzonatate 100 MG CAP PO SCH (08:04)
[2017-07-31] MEDS: Cefdinir 300 MG CAP PO SCH (08:04)
[2017-07-31] MEDS: Carvedilol 3.125 MG TAB PO SCH (08:05)
[2017-07-31] MEDS: Amlodipine 10 MG TAB PO SCH (08:05)
[2017-07-31] MEDS: Diphenoxylate HCl/Atropine Tablet PO SCH (08:05)
--- NOTE | 2017-07-31 11:00 | PRG ---
DATE OF SERVICE: 07/31/2017 SUBJECTIVE: Toshia Peterson is doing well. She is ambulating. I have written a prescription for nebuli zer. She is still moderately hypertensive. OBJECTIVE: VITAL SIGNS: She is afebrile, heart rate 80, respiratory rate 16, and temperature is 95. Last blood pressure 156/76. LUNGS: Completely clear. LABORATORY DATA: PFTs show an FEV1 that is just under 1 liter, improves by 18% after bronchodilators . This is a severe obstructive defect. IMPRESSION: 1. Severe chronic obstructive pulmonary disease. 2. Recent pneumonia. 3. Pulmonary nodule. 4. Pulmonary embolism, ? false positive. PLAN: We will anticoagulate her for now and probably for 3 months. We could consider an outpatient workup. I am not sure she would tolerate a CT-guided biopsy considering how severe obstructive lung disease is. We will discuss this when she follows up with me in the office if this radiographic abno rmality is persistent.
--- NOTE | 2017-07-31 13:12 | DIS ---
DISCHARGE DISPOSITION: Home. FOLLOWUP: Follow up with primary care physician, Dr. Ollie Sandra in 1 week. The patient was seen on the day of discharge. Denies any new complaints. Shortness of breath has si gnificantly improved. INPATIENT CONSULTANTS: Pulmonary, Dr. Abrams. BRIEF HOSPITAL COURSE: The patient is a 66-year-old female with COPD, hypertension, and hyperlipidem ia who presented to the hospital with shortness of breath. Please refer to the history and physical dated 07/26/2017 for further details. The patient was admitted to the hospital with a diagnosis of COPD exacerbation with suspected pulmona ry embolism. CT angiogram of the chest showed acute subsegmental branch pulmonary embolism in the le ft lower lobe. She has been started on Xarelto. Bilateral lower extremity Doppler was negative for DVT. She has shown good improvement with nebulizer treatments. She has been cleared by Dr. Abrams fo r discharge. She will continue Xarelto for 3 months. She will follow up with Dr. Abrams after a jenny h with a repeat chest x-ray due to suspected lung mass. FINAL DIAGNOSES: 1. Pulmonary embolism. The patient has been started on Xarelto. 2. Chronic obstructive pulmonary disease exacerbation, improved. 3. Recent hospitalization for sepsis with pneumonia and chronic obstructive pulmonary disease exacer bation. 4. Hypertension. 5. Hyperlipidemia. 6. Pulmonary nodule. 7. Bipolar disorder. 8. Chronic anemia. 9. Hyponatremia, corrected. 10. History of carotid stenosis. The patient was advised to follow up with Dr. Hassan. 11. History of cerebrovascular accident. SIGNIFICANT LABORATORIES: 1. Troponins were normal. 2. BNP was 35.8. 3. Urinalysis was negative. 4. Blood cultures were negative. 5. Influenza screen was negative. Plan of care was discussed with the patient in detail. She stated understanding.
[2017-07-31 14:09] VITALS: BP 131/61; TEMP 98.3
--- NOTE | 2017-08-06 09:11 | PFT ---
PATIENT HISTORY: HEIGHT: 64 IN WEIGHT: 111 LBS SMOKER: YES HOW LON YEARS PACKS PER DAY 1/2 PRODUCTIVE COUGH: NO LUNG DISEASE: PHYSICIAN INTERPRETATION FINAL REPORT: This is a bedside pulmonary function test which shows very severe reduction in expiratory flows. Vital capacity is moderately reduced. Following bronchodilator therapy, there was a mild improvement in flows. IMPRESSION: Severe obstructive ventilatory impairment. Piece Cutter: MELLO Composing Room Supervisor: ANTONY BEJARANO
== END 2017-07-31 14:05 | disposition home or self-care (01) | DRG 176 ==
LOC: ERS 13:39 → T4-A 17:23
PROVIDERS: ADMIT Hospitalist; ATTEND Hospitalist
DX: I26.99 Other pulmonary embolism without acute cor pulmonale (principal); E87.1 Hypo-osmolality and hyponatremia; J44.1 Chronic obstructive pulmonary disease with (acute) exacerbation; E78.5 Hyperlipidemia, unspecified; F17.210 Nicotine dependence, cigarettes, uncomplicated; I10 Essential (primary) hypertension; F31.9 Bipolar disorder, unspecified; Z87.01 Personal history of pneumonia (recurrent); R91.1 Solitary pulmonary nodule; D64.9 Anemia, unspecified; Z86.73 Personal history of transient ischemic attack (TIA), and cerebral infarction without residual deficits
CPT/HCPCS: 36415; 71045; 71275; 80048; 80053; 81003; 82553; 82565; 83605; 83690; 83880; 84484; 85014; 85018; 85025; 85049; 85610; 87040; 93005; 93970; 94060; 94640; 96372; 96374; 99406; J1650; J2920; J2930; J7506; J7620; Q0162

== ENCOUNTER 2017-08-29 20:36 | Emergency (ER) | payer MEDICARE ==
[2017-08-29 21:50] LABS: Actual Bicarbonate (HCO3a) 24.2 mEq/L (22-26); Base Excess (BEa) 1.5 mEq/L (0 (+/-) 2.5); CO2 Tension 31.5 mmHg (35.0-45.0); Hematocrit-ABG 36.9 % (36.0-47.0); Hemoglobin (Hb) 10.7 g/dL (12.0-16.0); O2 Tension (PaO2) 109.8 mmHg (80.0-100.0)
[2017-08-29 21:51] LABS: Analyzer IN Cardio ER; Calcium, Ionized 1.2 mmol/L (1.12-1.30); Potassium - ABG Lab 3.3 mmol/L (3.70-5.30); Puncture Site LRA
[2017-08-29 21:52] LABS: #Basophils 0.1 thou/uL (0.0-0.2); #Lymphocytes 1.8 thou/uL (1.20-3.40); #Monocytes 0.6 thou/uL (0.11-0.59); #Neutrophils 5.1 thou/uL (1.40-6.50); %Basophils 0.9 % (0.0-1.0); %Eosinophils 0.2 % (0.0-10.0); %Lymphocytes 23.8 % (21.0-51.0); %Neutrophils 67.2 % (42.0-75.0); Hemoglobin 11.7 g/dL (12.0-16.0); Mean Corpuscular HGB CONC 32.7 g/dL (32.0-36.0); Mean Corpuscular Hemoglobin 29.3 pg (27.0-31.0); Mean Corpuscular Volume 89.4 fl (81.0-99.0); Mean Platelet Volume 7.2 fL (7.4-10.4); Platelet Count 337 thou/uL (130-400); RBC Distribution Width 14.2 % (11.5-14.5); White Blood Cell (WBC) Count 7.6 thou/uL (4.8-10.8)
[2017-08-29 21:52] LABS: ALV-art Gradient 50.465 (0-20)
[2017-08-29 21:58] LABS: INR-International Normal Ratio 1.1; Prothrombin Time 13.8 SEC (12.0-14.7)
[2017-08-29 21:59] LABS: PTT 28.3 SEC (22.9-36.1)
[2017-08-29 22:16] LABS: CKMB 0.6 ng/mL (0-6.6); Troponin I Less than 0.010 ng/mL (< 0.028)
--- NOTE | 2017-08-29 22:19 | RAD ---
RADIOGRAPH OF CHEST FRONTAL VIEW SERIES 08/29/17 COMPARISON: 07/26/17 INDICATION: Chest pain. FINDINGS: Redemonstration of nodular density at the right mid to lower lung zone. Lungs are hyperinflated and l ucent indicating pulmonary emphysema. IMPRESSION: Redemonstration of a nodular density in the right lung. This has been documented as a neoplastic nodu le on prior CT. POS: [facility]
[2017-08-29 22:20] LABS: ALT (SGPT) 7 U/L (8-55); AST (SGOT) 14 U/L (5-34); Albumin 3.9 g/dL (3.4-4.8); Alkaline Phosphatase 81 U/L (40-150); Anion Gap 15 mmol/L (10-20); BUN (Urea Nitrogen) 11 mg/dL (9.8-20.1); Bilirubin, Total 0.3 mg/dL (0.2-1.2); CK (CPK) 33 U/L (29-168); Calc. Creatinine Clearance 0 mL/min (70-130); Calcium 9.4 mg/dL (7.8-10.44); Carbon Dioxide 24 mmol/L (23-31); Chloride 100 mmol/L (98-107); Estimated GFR-MDRD 72; Globulin 2.8 g/dL (2.4-3.5); Glucose 88 mg/dL (80-115); Lipase 47 U/L (8-78); Potassium 3.7 mmol/L (3.5-5.1); Protein, Total 6.7 g/dL (6.0-8.3); Sodium 135 mmol/L (136-145)
--- NOTE | 2017-09-06 17:46 | EKG ---
Test Reason : SOB Blood Pressure : / mmHG Vent. Rate : 066 BPM Atrial Rate : 066 BPM P-R Int : 160 ms QRS Dur : 070 ms QT Int : 424 ms P-R-T Axes : 081 000 061 degrees QTc Int : 444 ms Sinus rhythm with Premature atrial complexes with Abberant conduction Possible Left atrial enlargement Anteroseptal infarct , age undetermined Abnormal ECG Confirmed by ANTWON OSPINA, FADI ([id number]), newspaper managing editor OMAR FINN ([id number]) on 09/06/2017 5:45:59 PM Referred By: Confirmed By:FADI KAPORO MD
== END 2017-08-29 23:45 | disposition home or self-care (01) ==
LOC: ERS 20:36
DX: M54.6 Pain in thoracic spine (principal); J44.9 Chronic obstructive pulmonary disease, unspecified; E78.5 Hyperlipidemia, unspecified; I10 Essential (primary) hypertension; F31.9 Bipolar disorder, unspecified; Z71.6 Tobacco abuse counseling; F17.210 Nicotine dependence, cigarettes, uncomplicated; Z79.899 Other long term (current) drug therapy; Z79.82 Long term (current) use of aspirin
CPT/HCPCS: 71045; 80053; 82553; 82805; 83690; 83880; 84484; 85025; 85610; 85730; 93005; 99406

== ENCOUNTER 2017-08-29 23:53 | Emergency (ER) | payer MEDICARE ==
[2017-08-30] MEDS ORDERED: Acetaminophen 500 MG TAB ONE (03:07)
--- NOTE | 2017-09-27 14:22 | EKG ---
Test Reason : Blood Pressure : / mmHG Vent. Rate : 061 BPM Atrial Rate : 061 BPM P-R Int : 172 ms QRS Dur : 064 ms QT Int : 438 ms P-R-T Axes : 070 006 047 degrees QTc Int : 440 ms Normal sinus rhythm Normal ECG Confirmed by LAYO ROGERS M.D. ([id number]), health editor OMAR FINN ([id number]) on 09/27/2017 2:21:20 PM Referred By: Confirmed By:LAYO ROGERS M.D.
== END 2017-08-30 03:16 | disposition home or self-care (01) ==
LOC: ERS 23:53
DX: E86.0 Dehydration (principal); J44.9 Chronic obstructive pulmonary disease, unspecified; E78.5 Hyperlipidemia, unspecified; I10 Essential (primary) hypertension; F31.9 Bipolar disorder, unspecified; Z71.6 Tobacco abuse counseling; F17.210 Nicotine dependence, cigarettes, uncomplicated; Z79.899 Other long term (current) drug therapy; Z79.82 Long term (current) use of aspirin
CPT/HCPCS: 93005; 96360; 99406

== ENCOUNTER 2017-08-30 11:57 | Emergency (ER) | payer MEDICARE ==
[2017-08-30] MEDS ORDERED: cloNIDine 0.1 MG TAB ONE ×2 (13:32→14:00)
[2017-08-30] MEDS ORDERED: Amlodipine 5 MG TAB ONE (14:26)
[2017-08-30] MEDS ORDERED: Rivaroxaban 10 MG TAB PO SCH (14:30)
== END 2017-08-30 15:35 | disposition home or self-care (01) ==
LOC: ERS 11:57
DX: M54.9 Dorsalgia, unspecified (principal); G89.29 Other chronic pain; F17.210 Nicotine dependence, cigarettes, uncomplicated; J44.9 Chronic obstructive pulmonary disease, unspecified; E78.5 Hyperlipidemia, unspecified; I10 Essential (primary) hypertension; F31.9 Bipolar disorder, unspecified; Z79.82 Long term (current) use of aspirin; Z71.6 Tobacco abuse counseling; Z79.01 Long term (current) use of anticoagulants; Z79.899 Other long term (current) drug therapy
CPT/HCPCS: 99406

== ENCOUNTER 2018-01-23 08:04 | Observation (INO) | payer MEDICARE ==
[2018-01-23 08:49] LABS: #Lymphocytes 1.7 thou/uL (1.20-3.40); #Monocytes 0.6 thou/uL (0.11-0.59); #Neutrophils 4.8 thou/uL (1.40-6.50); %Basophils 0.7 % (0.0-1.0); %Eosinophils 0.6 % (0.0-10.0); %Lymphocytes 23.9 % (21.0-51.0); %Monocytes 7.8 % (0.0-10.0); Mean Corpuscular HGB CONC 32.8 g/dL (32.0-36.0); Mean Corpuscular Hemoglobin 28.4 pg (27.0-31.0); Mean Corpuscular Volume 86.4 fL (78.0-98.0); Mean Platelet Volume 6.6 fL (7.4-10.4); Platelet Count 332 thou/uL (130-400); RBC Distribution Width 13.4 % (11.5-14.5); Red Blood Cell (RBC) Count 4.23 mill/uL (4.20-5.40); White Blood Cell (WBC) Count 7.2 thou/uL (4.8-10.8)
[2018-01-23 08:51] LABS: Prothrombin Time 13.5 SEC (12.0-14.7)
[2018-01-23 09:14] LABS: ALT (SGPT) Less than 7 U/L (8-55); AST (SGOT) 8 U/L (5-34); Albumin 4.1 g/dL (3.4-4.8); Alkaline Phosphatase 87 U/L (40-150); Anion Gap 13 mmol/L (10-20); BUN (Urea Nitrogen) 22 mg/dL (9.8-20.1); Bilirubin, Total 0.5 mg/dL (0.2-1.2); CKMB 0.8 ng/mL (0-6.6); Calc. Creatinine Clearance 0 mL/min (70-130); Calcium 9.5 mg/dL (7.8-10.44); Carbon Dioxide 24 mmol/L (23-31); Chloride 103 mmol/L (98-107); Estimated GFR-MDRD 71; Globulin 2.6 g/dL (2.4-3.5); Glucose 159 mg/dL (80-115); Lipase 25 U/L (8-78); Protein, Total 6.7 g/dL (6.0-8.3); Sodium 136 mmol/L (136-145); Troponin I Less than 0.010 ng/mL (< 0.028)
--- NOTE | 2018-01-23 09:18 | RAD ---
PORTABLE CHEST 1 VIEW: DATE: 01/23/18. TIME: 8:22 a.m. HISTORY: Dyspnea. FINDINGS: Comparison is made with the exam of 08/29/17. The heart size is normal. The lungs are expanded without lobar consolidation, pneumothoraces, or ple ural effusions. The lung nodule on the right appears larger than on the previous study. Further evaluation with CT scan would be helpful. POS: [facility]
--- NOTE | 2018-01-23 10:27 | CT ---
CT ANGIOGRAM CHEST: 01/23/2018 COMPARISON: 07/26/2017 HISTORY: Dyspnea. TECHNIQUE: Serial axial CT imaging is obtained at 2.5 mm intervals, from the thoracic inlet through the upper ab domen, with IV contrast, using a CT angiogram protocol. Coronal and sagittal 3D reformatted imaging obtained. FINDINGS: No lymphadenopathy is evident within the chest. There is a low density lesion in the spleen, posteriorly, measuring approximately 2.5 cm, decreased i n size when compared to a CT of the chest performed on 06/29/2017. There are postoperative clips in the region of the gastrohepatic ligament, in the gastroesophageal ju nction. There is no pleural, pericardial, or mediastinal fluid seen. There is atherosclerotic calcification of the aortic arch, in the proximal left subclavian artery, as well as the descending thoracic aorta. There is no filling defect identified within the pulmonary arterial vasculature to suggest the presen ce of acute pulmonary embolus. There are severe emphysematous changes noted throughout both lungs. There is no endobronchial lesion evident. There is a spiculated mass at the ventral aspect of the right lower lobe, abutting the major fissure, measuring 2.5 cm in greatest transverse dimension. This lesion has grown when compared to the 07/26 exam, at which time it measured up to 1.8 cm in greatest dimension. Configuration of this lesi on is concerning for bronchogenic carcinoma within the right lower lobe. No acute osseous abnormalit y is evident. IMPRESSION: 1. No evidence for pulmonary embolism. 2. 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 POS: [facility]
[2018-01-23] MEDS ORDERED: Albuterol Sulfate 2.5 mg/0.5 ml Neb ONE (10:52)
[2018-01-23 11:34] LABS: CKMB 0.6 ng/mL (0-6.6); Troponin I Less than 0.010 ng/mL (< 0.028)
[2018-01-23] MEDS ORDERED: ISOVUE-370 76%-LOCM 1 ML ONE (12:12)
[2018-01-23 14:51] LABS: Troponin I Less than 0.010 ng/mL (< 0.028)
--- NOTE | 2018-01-23 14:55 | HP ---
PRIMARY CARE PHYSICIAN: Dr. Bharat Sandra. REASON FOR ADMISSION: Chest pain. HISTORY OF PRESENT ILLNESS: A 67-year-old female who has ongoing tobacco abuse disorder, hypertensio n, dyslipidemia, severe COPD, who presented to emergency room with the complaint of chest pain and sh ortness of breath for the last 3 days on and off basis. He was experiencing chest pain which was acr oss the chest, dull aching in nature, radiating to right upper extremity, associated with shortness o f breath and cough. She denies any associated nausea, vomiting, or diaphoresis. Whenever pain start s, it lasts for about a couple of hours. She cannot relate to any worsening factor. She cannot rela te it to anything makes better. She experiencing chest pain several times like this during daytime. She denies particular relation with food, respiration or activity. She denies any fever or chills. She does have dry cough. She denies any recent upper respiratory infection. The patient reports th at she has COPD, but this shortness of breath is little bit different from her regular COPD, shortnes s of breath. She was using her regular inhaler without any help. The patient also reports that she ran out all other medication for the last couple of months and she saw her primary care physician 2 m onths ago. The patient has a history of pulmonary nodule since July of this year. During that admission, pul ethnology professor evaluated this patient and advised outpatient basis more investigation, but she never foll owed up group practice pediatrician after discharge. Today, in the emergency room, the patient had CT angiography which showed spiculated mass in the right lower lobe, which was increased in size from previous. The patient does have weight loss. She denies any hemoptysis. She denies any pleuritic chest pain. Sh e denies any fever or chills. She denies any UTI symptoms. She had diarrhea a couple of days ago wh ich is already subsiding. She denies any hematochezia or melena. She denies any focal motor weaknes s. REVIEW OF SYSTEMS: Please see my HPI for pertinent positive and negatives. All other review of syst ems reviewed and negative except as mentioned in the HPI. Constitutional: Weight loss or gain, ability to conduct usual activities. Skin: Rash, itching. Eyes: Double vision, pain. ENT/Mouth: Nose bleeding, neck stiffness, pain, tenderness. Cardiovascular: Palpitations, dyspnea on exertion, orthopnea. Respiratory: Shortness of breath, wheezing, cough, hemoptysis, fever or night sweats. Gastrointestinal: Poor appetite, abdominal pain, heartburn, nausea, vomiting, constipation, or diarrhea. Genitourinary: Urgency, frequency, dysuria, nocturia. Musculoskeletal: Pain, swelling. Neurologic/Psychiatric: Anxiety, depression. Allergy/Immunologic: Skin rash, bleeding tendency. ALLERGIES: The patient is not tolerating tramadol. The patient also has lactose intolerance and she is not tolerating any NSAIDs. CURRENT HOME MEDICATIONS: Unfortunately, the patient ran out all medication for the last couple of m onths. The patient was on following medications upon discharge from previous hospitalization, amlodi pine 10 mg daily, aspirin 325 mg daily, Lipitor 20 mg p.o. at bedtime, Coreg 3.125 mg p.o. b.i.d., De pakote ER 1000 mg at bedtime, Pepcid 20 mg p.o. b.i.d., DuoNeb q.6 hourly, trazodone 100 mg p.o. at b edtime. PAST MEDICAL HISTORY: Severe chronic obstructive pulmonary disease, history of CVA in 2014, hyperten arely, dyslipidemia, migraine headache, history of pulmonary nodule in the right lung. PAST PSYCHIATRIC HISTORY: Anxiety, depression, bipolar disorder. She required inpatient psychiatric facility treatment in 1986. PAST SURGICAL HISTORY: Hysterectomy, abdominal surgery, total hip replacement on the left side, tons illectomy, gastric ulcer surgery. SOCIAL HISTORY: The patient is trying to cut down smoking, but still smokes 4-5 cigarettes every day basis. She drinks alcohol occasionally. She is unmarried and currently lives in [facility]. he denies any other illicit drug abuse. FAMILY HISTORY: Positive for hypertension to her mother. Father also had COPD and emphysema. EMERGENCY ROOM COURSE: She was given DuoNeb therapy, albuterol nebulization, IV fluid and aspirin. PHYSICAL EXAMINATION: VITAL SIGNS: Currently, blood pressure 159/71, pulse 74, respiratory rate 18, temperature 98.5, satu ration 99% on room air, weight 45.3 kilograms. GENERAL: The patient is currently alert, awake, hypertensive on room air. No obvious acute distress . HEAD: Normocephalic, atraumatic. EYES: Pupils round, reactive to light. Extraocular muscle intact. ENT: Oropharynx within normal limits. Moist mucous membranes. No oral lesion, no pharyngeal erythe ma, no exudate. NECK: Supple, no JVD, no thyromegaly, no carotid bruit. LUNGS: Bilateral end expiratory wheezing heard, no rales, no rhonchi, no accessory muscles of respir ation in use. CARDIAC: S1, S2 regular. No murmur, no gallop, no rub. ABDOMEN: Soft, bowel sounds present, nontender, nondistended. No organomegaly, no mass, no suprapub ic tenderness. BACK: Unremarkable, no CVA tenderness. EXTREMITIES: Upper extremity: Passive movement of all joints are normal. Lower extremities: No ed [place]. Good peripheral pulsation, no calf tenderness. Good distal pulsation. SKIN: No skin rash. HEMATOLOGICAL: No lymphadenopathy. PSYCHIATRIC: Normal affect. NEUROLOGIC: The patient is alert, oriented x3. Cranial nerves II-XII intact. Motor and sensation w ithin normal limits. No focal neurological deficit noted. SIGNIFICANT LABORATORY DATA: 1. EKG showing premature ventricular complexes and premature atrial complexes, normal sinus rhythm w ithout any obvious ischemic changes. CT angiography done which showed spiculated mass in the right l ower lobe concerning for bronchogenic carcinoma, emphysematous changes, no evidence of pulmonary embo lism. Chest x-ray showing increased size of pulmonary nodule, COPD changes. 2. BNP 44.3. 3. Cardiac enzymes: CK-MB 0.8, troponin I less than 0.010. Lipase 25. 4. BMP: Sodium 136, potassium 4.0, chloride 103, carbon dioxide 24, anion gap 13, BUN 22, creatinin e 0.81, glucose 159, calcium 9.5. 5. LFT: Protein 6.7, albumin 4.1, alkaline phosphatase 87, AST 80, ALT less than 7. INR 1.0. 6. CBC: WBC 7.2, hemoglobin 12.0, platelets 332. ASSESSMENT AND PLAN: 1. Chest pain. The patient's chest pain description is atypical. She has several risk factors for coronary artery disease including hypertension, dyslipidemia, tobacco abuse disorder, and age. She i s also not taking any medication on regular basis. Her last stress test was in our hospital in 06/02 17, which was normal. She also had echocardiography in 06/2017, which showed normal EF without any s ignificant abnormality. At this point, EKG is not showing any ischemic changes. Cardiac enzymes alr darius negative. We will do serial cardiac enzymes, total x3 and we will keep on telemetry floor for r ule out acute coronary syndrome. We will repeat again one more time to rule out underlying silent is chemia. A pharmacological Cardiolite stress test given chronic obstructive pulmonary disease and her physical deconditioning. If stress test is negative, then we will consider discharging her home joni or[facility]. For risk stratification, we will check lipid profile tomorrow morning. 2. Spiculated right lower lobe lung mass. The patient has long history of pulmonary nodules since J anuary of this year. The patient has been evaluated by group practice pediatrician, Dr. Abrams, at that time. Unfo rtunately, because of her noncompliance, she did not follow up with the group practice pediatrician in the clinic. At this point today, Dr. Abrams is not on-call and I spoke with the pulmonary clinic and I made appoi ntment for this particular patient on coming 01/28/2018 at 10:15 a.m. The patient is stron gly advised to make appointment and see Dr. Abrams for further evaluation and treatment as an outpatie nt basis. This diagnosis also discussed with the patient about lung mass. She most likely has under lying bronchogenic carcinoma given her long history of smoking and ongoing tobacco abuse disorder. 3. Chronic obstructive pulmonary disease, severe. At this point, does not have any exacerbation. W e will continue DuoNeb q.6 hourly, Dulera two puffs inhalation b.i.d., Mucinex 600 mg twice daily. 4. Hypertension. We will continue amlodipine 10 mg p.o. daily, nitropatch q.8 hourly. We are holdi ng Coreg because we are planning to do stress test tomorrow. 5. Dyslipidemia. Continue Lipitor 20 mg p.o. at bedtime and check lipid profile tomorrow morning. 6. Anxiety, depression, bipolar disorder. Continue Depakote ER 1000 mg p.o. at bedtime. 7. Deep venous thrombosis prophylaxis not needed because we are expecting discharge in 24 hours. 8. Gastrointestinal prophylaxis, Pepcid 20 mg p.o. b.i.d. 9. Code status: The patient is FULL CODE. The patient does not have any surrogate decision maker. 10. Tobacco abuse disorder. Smoking cessation counseling given. Healthy lifestyle measures discuss ed with the patient in detail. Disposition plan likely within 24 hours based on stress test result.
[2018-01-23] MEDS ORDERED: Artificial Tears 18 DROP/0.9 ML EA EYE PRN (16:38)
[2018-01-23] MEDS ORDERED: Eucerin (Mineral Oil/Petrolatum,White) 30 gm Jar TOP PRN (16:38)
[2018-01-23] MEDS ORDERED: Diabetic Tussin 200 MG/10 ML UDCUP PO PRN (16:38)
[2018-01-23] MEDS ORDERED: Ondansetron HCl/PF 4 MG/2 ML Vial IVP PRN (16:38)
[2018-01-23] MEDS ORDERED: Sodium Chloride 0.65% Nasal 44 ML BOT EA NARE PRN (16:38)
[2018-01-23] MEDS ORDERED: Ondansetron ODT 4 MG TAB PO PRN (16:38)
[2018-01-23] MEDS ORDERED: Mag-Al 1200 mg/1200 mg/30 ML UDCUP PO PRN (16:38)
[2018-01-23] MEDS ORDERED: Zolpidem Tartrate 5 MG TAB PO PRN (16:38)
[2018-01-23] MEDS ORDERED: Loperamide HCl 2 MG CAP PO PRN (16:38)
[2018-01-23] MEDS ORDERED: Chloraseptic Spray 180 ml Bottle PO PRN (16:38)
[2018-01-23] MEDS ORDERED: hydrALAZINE 20 MG/ML VIAL SLOW IVP PRN (16:38)
[2018-01-23] MEDS ORDERED: Senokot 8.6 MG TAB PO PRN (16:38)
[2018-01-23] MEDS ORDERED: Acetaminophen 325 MG TAB PO PRN (16:38)
[2018-01-23] MEDS ORDERED: Milk Of Magnesia 30 ML UDCUP PO PRN (16:38)
[2018-01-23] MEDS ORDERED: Loratadine 10 MG TAB PO PRN (16:38)
[2018-01-23 16:48] VITALS: BMI 17.9
[2018-01-23] MEDS: Nitroglycerin 2% Ointment 1 INCH/1 GM Packet TOP SCH (17:03)
[2018-01-23 17:32] LABS: Troponin I 0.013 ng/mL (< 0.028)
[2018-01-23] MEDS ORDERED: HYDROcodone/Acetaminophen 5/325 mg Tablet PO PRN (18:24)
[2018-01-23] MEDS ORDERED: HYDROcodone/Acetaminophen 10/325 mg Tablet PO PRN (20:38)
[2018-01-23] MEDS ORDERED: Venlafaxine HCl XR 150 MG CAP PO SCH (21:00)
[2018-01-23] MEDS ORDERED: Atorvastatin Calcium 20 MG TAB PO SCH (21:00)
[2018-01-23] MEDS ORDERED: Citalopram 20 MG TAB PO SCH (21:00)
[2018-01-23] MEDS ORDERED: traZODone HCl 50 MG TAB PO SCH (21:00)
[2018-01-23] MEDS: Carvedilol 3.125 MG TAB PO SCH (21:01)
[2018-01-23] MEDS: Diphenoxylate HCl/Atropine Tablet PO SCH (21:02)
[2018-01-23] MEDS: Famotidine 20 MG TAB PO SCH (21:03)
[2018-01-23] MEDS: HYDROcodone/Acetaminophen 10/325 mg Tablet PO PRN (22:43)
[2018-01-24] MEDS: Nitroglycerin 2% Ointment 1 INCH/1 GM Packet TOP SCH ×3 (00:35→18:23)
[2018-01-24] MEDS: HYDROcodone/Acetaminophen 10/325 mg Tablet PO PRN ×2 (03:27→08:45)
[2018-01-24 04:42] LABS: Cardiac Risk 2.9 (Less than 4.5)
[2018-01-24 08:19] VITALS: TEMP 98.3
[2018-01-24] MEDS: Diphenoxylate HCl/Atropine Tablet PO SCH (08:44)
[2018-01-24] MEDS: Carvedilol 3.125 MG TAB PO SCH (08:44)
[2018-01-24] MEDS: Famotidine 20 MG TAB PO SCH (08:44)
[2018-01-24] MEDS ORDERED: Aspirin 325 MG TAB PO SCH (09:00)
[2018-01-24] MEDS ORDERED: Amlodipine 10 MG TAB PO SCH (09:00)
[2018-01-24 09:47] VITALS: BP 126/67
--- NOTE | 2018-01-24 10:22 | PDOC.PN ---
- Subjective Encounter Start Date: 01/24/18 Encounter Start Time: 07:40 Patient seen and examined. No new complaints. No overnight events - Objective Resuscitation Status: Resuscitation Status FULL:Full Resuscitation MAR Reviewed: Yes Vital Signs & Weight: Vital Signs (12 hours) Temp Pulse Resp BP Pulse Ox 01/24/18 09:46 81 126/67 01/24/18 08:43 86 01/24/18 08:34 86 16 01/24/18 07:56 98.3 F 54 L 16 184/81 H 95 01/24/18 07:31 97.6 F 61 16 01/24/18 03:28 177/75 H 01/24/18 02:36 61 01/24/18 02:28 97.6 F 61 20 195/86 H 95 01/24/18 00:32 71 14 96 Weight Weight 104 lb 7 oz I&O: 01/23/18 01/24/18 01/25/18 06:59 06:59 06:59 Intake Total 660 240 Output Total 350 400 Balance 310 -160 Result Diagrams: 01/23/18 08:29 01/23/18 08:29 EKG Reviewed by me: Yes (nsr) Phys Exam - Physical Examination Constitutional: NAD HEENT: PERRLA, moist MMs, sclera anicteric Neck: no JVD, supple Respiratory: no wheezing, no rales, no rhonchi Cardiovascular: RRR, no significant murmur, no rub Gastrointestinal: soft, non-tender, no distention, positive bowel sounds Musculoskeletal: no edema, pulses present Neurological: non-focal, normal sensation, moves all 4 limbs Psychiatric: normal affect, A&O x 3 Skin: no rash, normal turgor Dx/Plan (1) Bipolar disorder Code(s): F31.9 - BIPOLAR DISORDER, UNSPECIFIED Status: Acute (2) Chest pain Code(s): R07.9 - CHEST PAIN, UNSPECIFIED Status: Acute (3) Mass of right lung Code(s): R91.8 - OTHER NONSPECIFIC ABNORMAL FINDING OF LUNG FIELD Status: Acute (4) Anxiety and depression Code(s): F41.9 - ANXIETY DISORDER, UNSPECIFIED; F32.9 - MAJOR DEPRESSIVE DISORDER, SINGLE EPISODE, UNSPECIFIED Status: Chronic (5) COPD (chronic obstructive pulmonary disease) Status: Chronic Qualifiers: (6) HLD (hyperlipidemia) Code(s): E78.5 - HYPERLIPIDEMIA, UNSPECIFIED Status: Chronic Qualifiers: (7) HTN (hypertension) Code(s): I10 - ESSENTIAL (PRIMARY) HYPERTENSION Status: Chronic Qualifiers: (8) Protein-calorie malnutrition, mild Code(s): E44.1 - MILD PROTEIN-CALORIE MALNUTRITION Status: Chronic (9) Tobacco abuse Code(s): Z72.0 - TOBACCO USE Status: Chronic - Plan cont current plan of care * cancel stress test * she has scheduled pulmonary appointment on friday01/28/18 * medication reviewed as below * symptomatic treatment * see discharge . Review of Systems - Review of Systems Eyes: negative: Pain, Vision Change, Conjunctivae Inflammation, Eyelid Inflammation, Redness, Other ENT: negative: Ear Pain, Ear Discharge, Nose Pain, Nose Discharge, Nose Congestion, Mouth Pain, Mouth Swelling, Throat Pain, Throat Swelling, Other Respiratory: negative: Cough, Dry, Shortness of Breath, Hemoptysis, SOB with Excertion, Pleuritic Pain, Sputum, Wheezing Cardiovascular: negative: chest pain, palpitations, orthopnea, paroxysmal nocturnal dyspnea, edema, light headedness, other Gastrointestinal: negative: Nausea, Vomiting, Abdominal Pain, Diarrhea, Constipation, Melena, Hematochezia, Other Genitourinary: negative: Dysuria, Frequency, Incontinence, Hematuria, Retention , Other Musculoskeletal: negative: Neck Pain, Shoulder Pain, Arm Pain, Back Pain, Hand Pain, Leg Pain, Foot Pain, Other Skin: negative: Rash, Lesions, Lee, Bruising, Other - Medications/Allergies Allergies/Adverse Reactions: Allergies Allergy/AdvReac Type Severity Reaction Status Date / Time ketorolac [From Toradol] Allergy Verified 01/24/18 07:28 tramadol Allergy Verified 07/16/17 14:49 Medications: Current Medications Acetaminophen (Tylenol) 650 mg PO Q4H PRN PRN Reason: Headache/Fever or Pain Hydrocodone Bitart/Acetaminophen ([place] 5/325) 1 tab PO Q4H PRN PRN Reason: Moderate Pain (4-6) Last Admin: 01/23/18 18:29 Dose: 1 tab Hydrocodone Bitart/Acetaminophen ([place] 10/325) 1 tab PO Q4H PRN PRN Reason: PAIN SCALE 1-5 Hydrocodone Bitart/Acetaminophen ([place] 10/325) 2 tab PO Q4H PRN PRN Reason: PAIN SCALE 6-10 Last Admin: 01/24/18 08:45 Dose: 2 tab Al Hydroxide/Mg Hydroxide (Maalox) 30 ml PO Q6H PRN PRN Reason: Heartburn or Indigestion Albuterol/Ipratropium (Duoneb) 3 ml NEB [id number] [facility] Last Admin: 01/24/18 08:34 Dose: 3 ml Amlodipine Besylate (Norvasc) 10 mg PO DAILY [facility] Last Admin: 01/24/18 08:43 Dose: 10 mg Artificial Tears (Tears Naturale) 0 drop EA EYE PRN PRN PRN Reason: Dry Eyes Aspirin (Aspirin) 325 mg PO DAILY [facility] Last Admin: 01/24/18 08:43 Dose: 325 mg Atorvastatin Calcium (Lipitor) 20 mg PO [facility] Last Admin: 01/23/18 21:01 Dose: 20 mg Carvedilol (Coreg) 3.125 mg PO BID [facility] Last Admin: 01/24/18 08:44 Dose: 3.125 mg Citalopram Hydrobromide (Celexa) 20 mg PO [facility] Last Admin: 01/23/18 21:01 Dose: 20 mg Diphenoxylate HCl/Atropine (Lomotil) 3 tab PO BID [facility] Last Admin: 01/24/18 08:44 Dose: 3 tab Divalproex Sodium (Depakote Er) 1,000 mg PO [facility] Last Admin: 01/23/18 21:02 Dose: 1,000 mg Famotidine (Pepcid) 20 mg PO BID [facility] Last Admin: 01/24/18 08:44 Dose: 20 mg Guaifenesin (Robitussin Sf) 200 mg PO Q4H PRN PRN Reason: Cough Hydralazine HCl (Apresoline) 10 mg SLOW IVP Q4H PRN PRN Reason: Systolic BP > 180 Last Admin: 01/24/18 02:36 Dose: 10 mg Loperamide HCl (Imodium) 2 mg PO PRN PRN PRN Reason: Diarrhea/Loose Stools Loratadine (Claritin) 10 mg PO DAILYPRN PRN PRN Reason: Sinus Symptoms Last Admin: 01/23/18 23:50 Dose: 10 mg Magnesium Hydroxide (Milk Of Magnesium) 30 ml PO DAILYPRN PRN PRN Reason: Constipation Mineral Oil/White Petrolatum (Eucerin Cream) 0 gm TOP BIDPRN PRN PRN Reason: Dry Skin Nitroglycerin (Nitro-Bid 2% Ointment) 0.5 inch TOP 0100,0900,1700 [facility] Last Admin: 01/24/18 08:45 Dose: Not Given Ondansetron HCl (Zofran Odt) 4 mg PO Q6H PRN PRN Reason: Nausea/Vomiting Ondansetron HCl (Zofran) 4 mg IVP Q6H PRN PRN Reason: Nausea/Vomiting Phenol (Chloraseptic [place] 180 Ml Bot) 0 ml PO PRN PRN PRN Reason: Sore Throat Senna (Senokot) 2 tab PO HSPRN PRN PRN Reason: Constipation Sodium Chloride ([place] Nasal Elliott 0.65%) 0 ml EA NARE QIDPRN PRN PRN Reason: Nasal Congestion Trazodone HCl (Desyrel) 100 mg PO [facility] Last Admin: 01/23/18 23:52 Dose: 100 mg Venlafaxine HCl (Effexor Xr) 150 mg PO [facility] Last Admin: 01/23/18 21:03 Dose: 150 mg Zolpidem Tartrate (Ambien) 5 mg PO HSPRN PRN PRN Reason: Insomnia Last Admin: 01/24/18 02:26 Dose: 5 mg
--- NOTE | 2018-01-24 11:44 | DIS ---
DATE OF ADMISSION: 01/23/2018 DATE OF DISCHARGE: 01/24/2018 PRIMARY CARE PHYSICIAN: Boaz Levin. DISCHARGE DISPOSITION: Home. PRIMARY DISCHARGE DIAGNOSES: 1. Chest pain, ruled out acute coronary syndrome. 2. Right lower lobe spiculated lung mass. SECONDARY DISCHARGE DIAGNOSES: Tobacco abuse disorder, chronic obstructive pulmonary disease, mild p rotein calorie malnutrition, anxiety, depression, bipolar disorder, hypertension and dyslipidemia. PRIMARY PROCEDURE/OPERATION: None. RADIOLOGICAL INVESTIGATION: CT angiography showed no evidence of pulmonary embolism, but it did show spiculated lung mass in the right lower lobe worrisome for bronchogenic carcinoma. Chest x-ray show ed increase in size of pulmonary nodule, COPD changes. SIGNIFICANT LABORATORIES: WBC 7.2, hemoglobin 12.0, platelets 332, INR 1.0. Cardiac enzymes negativ e x3. BNP 44.3, LDL 120, BMP normal, LFT normal, lipase 25. DISCHARGE MEDICATIONS: Patient will continue all her previous medications; Norvasc 10 mg p.o. daily, aspirin 325 mg p.o. daily, Lipitor 20 mg p.o. at bedtime, Coreg 3.125 mg p.o. b.i.d., Lomotil p.r.n. basis, Depakote ER 1000 mg p.o. at bedtime, Mucinex 600 mg twice daily, [place] 10 one or two tablets q.4 hourly p.r.n., DuoNeb q.i.d., trazodone 100 mg p.o. at bedtime. CONTRAINDICATIONS: None. CODE STATUS: FULL CODE. INPATIENT CONSULTANTS: None. ALLERGIES: TORADOL and TRAMADOL. DISCHARGE PLAN: Post hospital, patient will follow up with primary care physician in 1 week. The n[facility] already has appointment with Dr. Abrams which I made in his clinic for coming Friday01/29/20 18 at 10:15 a.m. for suspected bronchogenic carcinoma. HOSPITAL COURSE: A 67-year-old female currently she lives in [place] in a motel. She is trying to als o find her place. She came to the ER because she was having across the chest discomfort. Her discom fort was pretty much atypical. She already had negative stress test as well as echocardiography in 08/2016 and that is why initially we plan for doing stress test, but then when cardiac enzymes remain negative and she was completely asymptomatic, next day we consulted stress test. This patient had CT angiography in the emergency room which showed spiculated lung mass in the right lower lobe which williamson s increased from compared to previous. This patient was evaluated by pulmonary group in the past, bu t she did not make any appointment and that is why I called pulmonary clinic and made appointment for her on Friday01/28/2018 at 10:15 a.m. The patient is reassured me that she will make appointmen t. I also provided counseling to avoid smoking. The patient is medically stable for discharge. The patient is seen and examined at bedside today. Please see my progress note from today for further d etail.
== END 2018-01-24 19:37 | disposition home or self-care (01) ==
LOC: ERS 08:04 → 2SW 16:17
PROVIDERS: ADMIT Internal Medicine; ATTEND Internal Medicine
DX: R07.9 Chest pain, unspecified (principal); J44.9 Chronic obstructive pulmonary disease, unspecified; I10 Essential (primary) hypertension; E78.5 Hyperlipidemia, unspecified; F41.8 Other specified anxiety disorders; F31.9 Bipolar disorder, unspecified; F17.210 Nicotine dependence, cigarettes, uncomplicated; E44.1 Mild protein-calorie malnutrition; Z88.5 Allergy status to narcotic agent; Z88.8 Allergy status to other drugs, medicaments and biological substances; Z79.82 Long term (current) use of aspirin; Z79.899 Other long term (current) drug therapy; Z68.1 Body mass index [BMI] 19.9 or less, adult
CPT/HCPCS: 71045; 71275; 80053; 80061; 82553 ×2; 83690; 83880; 84484 ×2; 85025; 85610; 93005; 94640 ×2; 96361; 96374; 99285; G0378; 36415; 96360; J0360; J7611; J7620